=== PATIENT | female | born 1955 ===

== ENCOUNTER 2016-10-14 10:39 | Inpatient (IN) | payer MEDICARE, OTHER ==
[2016-10-14 10:40] VITALS: BMI 28.3
--- NOTE | 2016-10-14 11:28 | C.PDOC ---
History Of Present Illness 61 y/o F c PMHx HTN, HLD, DM, asthma p/w R leg ulcer x 1 month. Patient was keeping this ulcer a secret from her family but they discovered it and brought patient to the ER. The patient has had a BKA of the L leg already. She states the ulcer is without drainage but with some pain. Denies fever, dyspnea, vomiting, diarrhea. She also notes L hand swelling x 3 days, denies pain or injury. PMD Sandra Time Seen by Provider: 10/14/16 11:25 Chief Complaint (Nursing): Abnormal Skin Integrity Past Medical History Reviewed: Historical Data, Nursing Documentation, Vital Signs Vital Signs: Last Vital Signs Temp 98.4 F 10/14/16 10:44 Pulse 77 10/14/16 10:44 Resp 18 10/14/16 10:44 BP 145/80 10/14/16 10:44 Pulse Ox 96 10/14/16 13:17 - Medical History PMH: Asthma, Diabetes, Gall Bladder Disease, HTN, Hypercholesterolemia Surgical History: Cholecystectomy - [facility] Procedures EXTRACTION OF LEFT UPPER LEG SKIN, EXTERNAL APPROACH (12/04/15) EXTRACTION OF RIGHT UPPER LEG SKIN, EXTERNAL APPROACH (12/04/15) FLUOROSCOPY OF SUP VENA CAVA USING OT CONTRAST, GUIDANCE (12/04/15) INSERTION OF INFUSION DEV INTO SUP VENA CAVA, PERC APPROACH (12/04/15) REPLACE L UP LEG SKIN W NONAUT SUB, PART THICK, 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 Constitutional: Negative for: Fever Cardiovascular: Negative for: Chest Pain Physical Exam - Physical Exam Additional Physical Exam Comments: Constitutional: No acute distress. Head: Normocephalic. Atraumatic. Eyes: PERRL. ENT: Moist mucous membranes. Neck: Supple. Cardiovascular: Regular rate. Radial pulse 2+ bilaterally. Chest: No tenderness. Respiratory: Clear to auscultation bilaterally. GI: Soft. Nontender. Nondistended. Back: No CVA tenderness. Musculoskeletal: L hand swollen with FROM and no tenderness. Skin: R calf ulcer approximately 4cm in length without active drainage, + tenderness. L BKA. Neurologic: Alert, no focal deficit. ED Course And Treatment - Laboratory Results Result Diagrams: 10/14/16 12:09 10/14/16 12:09 ECG: Interpreted By Me, Viewed By Me ECG Rhythm: Sinus Rhythm Interpretation Of ECG: No acute ST/T wave changes Rate From EC (BPM) O2 Sat by Pulse Oximetry: 96 (ra) Pulse Ox Interpretation: Normal Medical Decision Making Medical Decision Making: Chest X-Ray, Read by Sabine Sprague MD: FINDINGS: Examination markedly limited by habitus and hypoinflation. LUNGS: Interstitial prominence may reflect infection or edema. Please note that chest x-ray has limited sensitivity for the detection of pulmonary masses. PLEURA: Probable small left pleural effusion. No definite pneumothorax . CARDIOVASCULAR: Enlargement of the cardiomediastinal silhouette. Atherosclerotic calcifications. OSSEOUS STRUCTURES: Degenerative changes. VISUALIZED UPPER ABDOMEN: Unremarkable. OTHER FINDINGS: None. IMPRESSION: Limited study. Interstitial prominence may reflect infection or edema. Probable small left pleural effusion. Enlargement of the cardiomediastinal silhouette. Dr. Flores accepts patient for admission, requires IV antibiotics. resident care supervisor notified. Disposition Discussed With : Abel Flores Jr. Doctor Will See Patient In The: Hospital - Disposition Disposition: HOSPITALIZED Disposition Time: 13:40 Condition: GUARDED - Clinical Impression Clinical Impression: Swelling of hand, Diabetic ulcer of lower leg
[2016-10-14 12:19] LABS: BASO # 0.1 K/uL (0.0-0.2); EOS # 1.1 K/uL (0.0-0.7); EOS % 9.2 % (0.0-4.0); HEMATOCRIT 32.7 % (34.0-47.0); LYMPH # 2.5 K/uL (1.0-4.3); MEAN CORPUSCULAR HEMOGLOBIN 27.9 pg (27.0-31.0); MEAN CORPUSCULAR HGB CONC 31.9 g/dL (33.0-37.0); MEAN PLATELET VOLUME 8.6 fL (7.2-11.7); MONO # 0.7 K/uL (0.0-0.8); MONO % 5.5 % (0.0-10.0); RED CELL DISTRIBUTION WIDTH 14.5 % (11.5-14.5); WHITE BLOOD COUNT 11.9 K/uL (4.8-10.8)
[2016-10-14 12:23] LABS: MEAN CELL VOLUME 87.5 fL (81.0-99.0)
[2016-10-14 12:42] LABS: POTASSIUM 5.6 mmol/L (3.6-5.2)
[2016-10-14 12:44] LABS: ALB/GLOB RATIO 0.9 (1.0-2.1); BILIRUBIN,TOTAL 0.2 mg/dL (0.2-1.3); TOTAL PROTEIN 6.6 g/dL (6.3-8.3)
[2016-10-14 12:45] LABS: CALCIUM 6.6 mg/dl (8.6-10.4)
--- NOTE | 2016-10-14 13:12 | RAD ---
HISTORY: R leg ulcer, L hand swelling COMPARISON: Chest x-ray performed 12/04/15 TECHNIQUE: Chest PA and lateral FINDINGS: Examination markedly limited by habitus and hypoinflation. LUNGS: Interstitial prominence may reflect infection or edema. Please note that chest x-ray has limited sensitivity for the detection of pulmonary masses. PLEURA: Probable small left pleural effusion. No definite pneumothorax . CARDIOVASCULAR: Enlargement of the cardiomediastinal silhouette. Atherosclerotic calcifications. OSSEOUS STRUCTURES: Degenerative changes. VISUALIZED UPPER ABDOMEN: Unremarkable. OTHER FINDINGS: None. IMPRESSION: Limited study. Interstitial prominence may reflect infection or edema. Probable small left pleural effusion. Enlargement of the cardiomediastinal silhouette.
[2016-10-14 14:27] LABS: URINE BILIRUBIN NEGATIVE (NEGATIVE); URINE BLOOD NEGATIVE (NEGATIVE); URINE COLOR Straw (YELLOW); URINE GLUCOSE (UA) 3+ mg/dL (Normal); URINE KETONE NEGATIVE (NEGATIVE); URINE LEUKOCYTE ESTERASE NEG Leu/uL (Negative); URINE PROTEIN 3+ mg/dL (NEGATIVE); URINE UROBILINOGEN NORMAL mg/dL (0.2-1.0); WBC URINE 4 /hpf (0-5)
[2016-10-14 14:33] LABS: RBC URINE 4 /hpf (0-3)
[2016-10-14] MEDS ORDERED: Sod Polystyrene Sulf 15 gm/60 ml Oral Susp PO ONE ×2 (15:55→17:15)
[2016-10-14] MEDS ORDERED: Albuterol-Ipratrop 3 mg / 0.5 (3 ml) UD INH PRN (16:00)
--- NOTE | 2016-10-14 16:30 | RAD ---
PROCEDURE: Radiographs of the right tibia and fibula. HISTORY: calf ulcer, tenderness COMPARISON: None available. TECHNIQUE: Frontal and lateral views obtained. FINDINGS: BONES: No fracture or destructive lesion. JOINT SPACES: Tibiotalar joint osteoarthrosis OTHER FINDINGS: Extensive atherosclerotic vascular calcification. Extensive circumferential subcutaneous edema and reticulated edema. Radiolucency over posterior mid calf level probably relating to the clinical history provided upper calf ulcer No periosteal reaction or osseous destruction to suggest any regional osteomyelitis IMPRESSION: Soft tissue changes consistent with extensive circumferential subcutaneous edema/ lymph edema/cellulitis. Posterior mid calf soft tissue lucency consistent with history of calf ulcer here. No radiographic evidence of regional osteomyelitis. Atherosclerotic vascular disease
--- NOTE | 2016-10-14 16:34 | RAD ---
PROCEDURE: Left Hand Radiographs. HISTORY: hand swelling COMPARISON: None. FINDINGS: BONES: Diffuse osteopenia. No fracture or dislocation. No periosteal reaction or cortical destruction appreciated JOINTS: Mild proximal the diffuse joint space narrowing consistent with mild degenerative changes arthrosis SOFT TISSUES: Extensive diffuse soft tissue swelling with subcutaneous edema and atherosclerotic vascular calcifications no gas within the soft tissues is seen. Atherosclerotic vascular calcification OTHER FINDINGS: None. IMPRESSION: Diffuse osteopenia. No fracture, periosteal reaction or osseous destruction to suggest osteomyelitis. Soft tissue changes consistent with diffuse subcutaneous edema/ lymphedema and/or cellulitis. Atherosclerotic vascular disease
[2016-10-14] MEDS: Piperacill/Tazo 2.25gm in Dex 50 ML IVPB SCH (16:55)
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
[2016-10-14 19:40] LABS: IRON 51 ug/dL (37-170)
[2016-10-14] MEDS ORDERED: Influenza Virus Vaccine 45 mcg/0.5 ml Syr IM ONE (22:00)
[2016-10-14] MEDS: (Novolin R) Insulin Human Regular 100 units/ml vial SC SCH (22:02)
[2016-10-15] MEDS: Piperacill/Tazo 2.25gm in Dex 50 ML IVPB SCH ×3 (00:41→16:00)
[2016-10-15 07:23] LABS: BASO # 0.1 K/uL (0.0-0.2); BASO % 0.8 % (0.0-2.0); EOS # 0.8 K/uL (0.0-0.7); EOS % 7.4 % (0.0-4.0); LYMPH # 1.2 K/uL (1.0-4.3); LYMPH % 11.4 % (20.0-40.0); MEAN CELL VOLUME 86.1 fL (81.0-99.0); MEAN CORPUSCULAR HEMOGLOBIN 27.9 pg (27.0-31.0); MEAN CORPUSCULAR HGB CONC 32.4 g/dL (33.0-37.0); MEAN PLATELET VOLUME 8.5 fL (7.2-11.7); MONO # 0.6 K/uL (0.0-0.8); MONO % 6.1 % (0.0-10.0); RED CELL DISTRIBUTION WIDTH 14.4 % (11.5-14.5); WHITE BLOOD COUNT 10.5 K/uL (4.8-10.8)
[2016-10-15 07:51] LABS: MAGNESIUM 2.1 mg/dL (1.6-2.3)
[2016-10-15] MEDS: (Novolin R) Insulin Human Regular 100 units/ml vial SC SCH ×4 (08:29→21:22)
[2016-10-15] MEDS: Enoxaparin 30 mg Syringe SC SCH (10:20)
--- NOTE | 2016-10-15 14:46 | CARD ---
APPROVED REPORT EKG Measurement Heart [id number] <Conclusion> Normal sinus rhythm Normal ECG
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
--- NOTE | 2016-10-15 15:35 | CON ---
DATE: 10/15/2016 HISTORY OF PRESENT ILLNESS: The patient is a 61-year-old woman with a past medical history of known chronic kidney disease, diabetes mellitus type 2, hypertension, dyslipidemia, asthma, status post CVA approximately 6 years ago and has known peripheral vascular disease. She had previous oste omyelitis of the left lower extremity and had a left AKA done. She presents to the Emergency Departm ent on 10/14 with a right leg wound which is draining for approximately 3 weeks was increasing pain. No fevers or chills. She did not take any recent antibiotics. She had nonhealing wound and she was admitted for this. She is known to have a creatinine of 6.4 and hyperkalemia and renal consult was r equested. PAST MEDICAL HISTORY: Known chronic kidney disease. Approximately 1 year ago, the creatinine was 4. 6. She has hypertension, diabetes mellitus type 2, dyslipidemia, asthma, peripheral vascular disease and status post CVA. PAST SURGICAL HISTORY: Cholecystectomy, a left AKA, debridement of abscess of bilateral medial thigh s. FAMILY HISTORY: Not known. SOCIAL HISTORY: Negative for smoking, alcohol abuse or illicit drug use. MEDICATIONS: Outpatient is unknown. In the hospital, she is taking Lexapro, amlodipine, Pepcid, IV Zosyn, Remeron, IV vancomycin which was just stopped. She was given Kayexalate. She was also on Cre stor, carvedilol, aspirin. PHYSICAL EXAMINATION: GENERAL: She is a well-developed woman in no acute distress. VITAL SIGNS: Blood pressure is elevated at 179/79, temperature 98.1, pulse ox 96% on room air and pu lse is 83. HEENT: She is anicteric. Mouth was clear. NECK: No JVD. CHEST: Lung marion showed wheezing and rhonchi, more on the left side. HEART: Regular rhythm, no murmur. ABDOMEN: Soft, benign. No mass or organomegaly. EXTREMITIES: She had no peripheral edema. Right leg wound was bandaged. She had a left AKA. NEUROLOGIC: She had left hemiparesis. LABORATORY DATA: Hemoglobin 10.4, white count, 10.5 . BUN is 46, creatinine is 6.4, potassium is 5. 6, CO2 is 16. Albumin of 3.2. Urine shows 3+ proteinuria. Renal ultrasound from ____/2016 showed b ilateral echogenic kidneys. IMPRESSION: The patient has chronic kidney disease stage V, diabetic nephropathy with proteinuria. She is status post cerebrovascular accident. She has hypertension which is moderately elevated and s he has peripheral vascular disease, status post left above-knee amputation and has a nonhealing right lower extremity wound. PLAN: Will be renal workup. Repeat renal ultrasound. Check urinalysis and serial chemistries: Dena ck urine protein excretion rate. We will treat the hyperkalemia and the metabolic acidosis. I would give her some IV Lasix as she probably has moderate fluid overload as chest x-ray is not clear. If she does not improve, she will likely need renal replacement therapy. We will follow up on this. Carlos Salinas MD cc: [id number] TT: 10/15/2016 15:35:28 Confirmation # [id number] Dictation # [id number] tn
--- NOTE | 2016-10-15 15:58 | US ---
PROCEDURE: Ultrasound of the Kidneys HISTORY: CKD EVAL COMPARISON: None available. TECHNIQUE: Sonogram of the kidneys. FINDINGS: RIGHT KIDNEY: Measures: 11.5 cm. Normal in size and contour. There is mild diffuse increased echogenicity. No stone, solid mass lesion or hydronephrosis visualized. There is a 2.1 x 1.4 x 1.3 cm simple cyst in the upper pole. LEFT KIDNEY: Measures: 10.1 cm. Normal in size and contour. There is mild diffuse increased echogenicity. No stone, solid mass lesion or hydronephrosis visualized. OTHER FINDINGS: None. IMPRESSION: Medical renal disease. No evidence of hydronephrosis or nephrolithiasis.
--- NOTE | 2016-10-15 19:49 | CP.PCM.PN ---
<Eduardo Meier - Last Filed: 10/15/16 19:46> Subjective - Date & Time of Evaluation Date of Evaluation: 10/15/16 Time of Evaluation: 11:15 - Subjective Subjective: Pt seen and examined. Pr resting comfortably. Pt reports that her right lateral leg pain has improved. Pt denies any fever, chills, chest pain, shortness of breath, nausea, and vomiting. Objective - Vital Signs/Intake and Output Vital Signs (last 24 hours): Temp Pulse Resp BP Pulse Ox 98.1 F 83 20 170/80 H 96 10/15/16 07:00 10/15/16 16:08 10/15/16 07:00 10/15/16 15:30 10/15/16 07:00 - Medications Medications: Current Medications Albuterol/Ipratropium (Duoneb 3 Mg/0.5 Mg (3 Ml) Ud) 3 ml INH RQ6 PRN PRN Reason: Shortness of Breath Amlodipine Besylate (Norvasc) 10 mg PO DAILY [facility] Aspirin (Aspirin Chewable) 81 mg PO DAILY [facility] Last Admin: 10/15/16 10:18 Dose: 81 mg Carvedilol (Coreg) 12.5 mg PO BID [facility] Last Admin: 10/15/16 10:19 Dose: 12.5 mg Enoxaparin Sodium (Lovenox) 30 mg SC DAILY [facility] Last Admin: 10/15/16 10:20 Dose: 30 mg Escitalopram Oxalate (Lexapro) 10 mg PO DAILY [facility] Last Admin: 10/15/16 10:19 Dose: 10 mg Famotidine (Pepcid) 20 mg PO DAILY [facility] Last Admin: 10/15/16 10:19 Dose: 20 mg Furosemide (Lasix) 40 mg IVP DAILY [facility] Last Admin: 10/15/16 15:30 Dose: 40 mg Piperacillin Sod/Tazobactam Sod (Zosyn 2.25 Gm Iv Premix) 50 mls @ 100 mls/hr IVPB Q8H [facility] Last Admin: 10/15/16 08:30 Dose: 100 mls/hr Insulin Human Regular (Novolin R) 0 unit SC ACHS [facility] PRN Reason: Protocol Last Admin: 10/15/16 12:30 Dose: Not Given Mirtazapine (Remeron) 7.5 mg PO HS [facility] Rosuvastatin Calcium (Crestor) 5 mg PO HS [facility] Last Admin: 10/14/16 21:57 Dose: 5 mg - Labs Labs: 10/15/16 07:15 PT 11.4 SECONDS (9.7-12.2) 10/14/16 13:15 INR 1.0 10/14/16 13:15 APTT 37 SECONDS (21-34) H 10/14/16 13:15 - Constitutional Appears: No Acute Distress - Head Exam Head Exam: ATRAUMATIC, NORMOCEPHALIC - Eye Exam Eye Exam: EOMI, PERRL - ENT Exam ENT Exam: Mucous Membranes Moist. absent: Mucous Membranes Dry - Neck Exam Neck Exam: Full ROM. absent: Lymphadenopathy - Respiratory Exam Respiratory Exam: Clear to Ausculation Bilateral. absent: Rales, Rhonchi, Wheezes - Cardiovascular Exam Cardiovascular Exam: +S1, +S2. absent: Gallop, Rubs - GI/Abdominal Exam GI & Abdominal Exam: Soft. absent: Guarding, Tenderness - Extremities Exam Additional comments: Left leg AKA, right lateral leg venous ulcer - Neurological Exam Neurological Exam: Alert, Awake, Oriented x3 - Psychiatric Exam Psychiatric exam: Normal Affect, Normal Mood - Skin Skin Exam: Warm Assessment and Plan - Assessment and Plan (Free Text) Assessment: Right Lateral Lower Extremity Ulcer Leukocytosis resolved Afebrile, nontachycardic Blood Cx x2 sent, follow-up Patient given stat dose of Vancomycin in ED Started on renal dose Zosyn 2.25 gm IVPB q8h Consult for wound care Tibia/Fibula X-RAY: soft tissue changes consistent with extensive circumferential subcutaneous edema/lymphedema/cellulitis. Posterior mid calf soft lucency consistent with history of calf ulcer. Atherosclerotic vascular disease. (see full report) PT/OT HTN: BP - 179/79 Norvasc 10 mg po qd Coreg 12.5mg po bid Lasix 40 mg IV qd ESRD BUN/CR: 46/6.4 Est GFR 7 Creatinine Clearance of 10 On previous admission, patient had creatinine of 3.5 Consulted nephrology, Dr. Salinas. Help appreciated. Iron studies pending Hep penal pending Diabetes Mellitus Blood glucose of 171 f/u hemoglobin a1c Urine: 3+ glucose RISS Accuchecks History of CVA Crestor 5 mg po HS ASA 81 mg po daily PT/OT Uncontrolled Asthma Duoneb RQ6 PRN for shortness of breath CXR: interstitial prominence, May reflect infection or edema. Probable small pleural effusion. Monitor Hyperlipidemia Crestor 5 mg po HS Ordered Lipid Panel Anemia hemoglobin 10.5 Iron studies Depression: Remeron 7.5 mg po hs Lexapro 10 mg po qd Prophylaxis: Lovenox 30 mg SC daily Pepcid 20 mg po daily SCD contraindicated due to right lower extremity ulcer and left AKA <Abel Flores Jr. - Last Filed: 10/17/16 16:54> Objective - Vital Signs/Intake and Output Vital Signs (last 24 hours): Temp Pulse Resp BP Pulse Ox 98.6 F 88 18 150/72 95 10/17/16 07:35 10/17/16 07:35 10/17/16 07:35 10/17/16 09:48 10/17/16 07:35 Intake and Output: 10/17/16 10/17/16 06:59 18:59 Intake Total 470 600 Output Total 1 2 Balance 469 598 - Medications Medications: Current Medications Albuterol/Ipratropium (Duoneb 3 Mg/0.5 Mg (3 Ml) Ud) 3 ml INH RQ6 PRN PRN Reason: Shortness of Breath Amlodipine Besylate (Norvasc) 10 mg PO DAILY [facility] Last Admin: 10/17/16 09:48 Dose: 10 mg Aspirin (Aspirin Chewable) 81 mg PO DAILY [facility] Last Admin: 10/17/16 15:00 Dose: 81 mg Calcium Acetate (Phoslo) 667 mg PO TIDCC [facility] Last Admin: 10/17/16 12:37 Dose: Not Given Carvedilol (Coreg) 12.5 mg PO BID [facility] Last Admin: 10/17/16 09:48 Dose: 12.5 mg Escitalopram Oxalate (Lexapro) 10 mg PO DAILY [facility] Last Admin: 10/17/16 09:49 Dose: 10 mg Famotidine (Pepcid) 20 mg PO DAILY [facility] Last Admin: 10/17/16 09:48 Dose: 20 mg Ferric Sodium Gluconate Complex (Ferrlecit) 125 mg IVPB DAILY [facility] Stop: 10/24/16 10:16 Last Admin: 10/17/16 09:49 Dose: 125 mg Furosemide (Lasix) 40 mg PO DAILY [facility] Heparin Sodium (Porcine) (Heparin) 5,000 units SC Q8 [facility] Last Admin: 10/17/16 13:34 Dose: 5,000 units Piperacillin Sod/Tazobactam Sod (Zosyn 2.25 Gm Iv Premix) 50 mls @ 100 mls/hr IVPB Q8H [facility] Last Admin: 10/17/16 08:13 Dose: 100 mls/hr Insulin Human Regular (Novolin R) 0 unit SC ACHS [facility] PRN Reason: Protocol Last Admin: 10/17/16 12:30 Dose: 4 unit Mirtazapine (Remeron) 7.5 mg PO HS [facility] Last Admin: 10/16/16 21:11 Dose: 7.5 mg Rosuvastatin Calcium (Crestor) 5 mg PO HS [facility] Last Admin: 10/16/16 21:10 Dose: 5 mg - Labs Labs: 10/17/16 07:00 10/17/16 07:00 PT 11.4 SECONDS (9.7-12.2) 10/14/16 13:15 INR 1.0 10/14/16 13:15 APTT 37 SECONDS (21-34) H 10/14/16 13:15 Attending/Attestation - Attestation I have personally seen and examined this patient.: Yes I have fully participated in the care of the patient.: Yes I have reviewed all pertinent clinical information, including history, physical exam and plan: Yes Notes (Text): 10/17/16 16:54 Patient seen and examined. Review resident note and agree with plan of care and findings
[2016-10-16] MEDS: Piperacill/Tazo 2.25gm in Dex 50 ML IVPB SCH ×3 (00:15→16:00)
[2016-10-16 08:15] LABS: BASO # 0.1 K/uL (0.0-0.2); BASO % 0.7 % (0.0-2.0); EOS # 0.9 K/uL (0.0-0.7); EOS % 8.4 % (0.0-4.0); HEMATOCRIT 30.7 % (34.0-47.0); LYMPH # 1.7 K/uL (1.0-4.3); LYMPH % 16.1 % (20.0-40.0); MEAN CELL VOLUME 85.5 fL (81.0-99.0); MEAN CORPUSCULAR HEMOGLOBIN 28.2 pg (27.0-31.0); MEAN CORPUSCULAR HGB CONC 32.9 g/dL (33.0-37.0); MONO # 0.6 K/uL (0.0-0.8); RED CELL DISTRIBUTION WIDTH 14.3 % (11.5-14.5); WHITE BLOOD COUNT 10.7 K/uL (4.8-10.8)
[2016-10-16 08:23] LABS: CHLORIDE 108 mmol/L (98-107)
[2016-10-16 08:24] LABS: POTASSIUM 3.8 mmol/L (3.6-5.2); SODIUM 141 mmol/L (132-148)
[2016-10-16 08:26] LABS: ALKALINE PHOSPHATASE 104 U/L (38-126); ALT/SGPT 15 U/L (9-52); AST/SGOT 15 U/L (14-36); BILIRUBIN,TOTAL < 0.1 mg/dL (0.2-1.3); BLOOD UREA NITROGEN 43 mg/dL (7-17); CARBON DIOXIDE 18 mmol/L (22-30); GFR AFRICAN-AMERICAN 7; GLUCOSE,RANDOM 112 mg/dL (65-105); TOTAL PROTEIN 6.2 g/dL (6.3-8.3)
[2016-10-16 08:27] LABS: CALCIUM 6.5 mg/dl (8.6-10.4); MAGNESIUM 1.9 mg/dL (1.6-2.3); PHOSPHOROUS 8.1 mg/dL (2.5-4.5)
[2016-10-16 08:32] LABS: ALB/GLOB RATIO 0.9 (1.0-2.1)
[2016-10-16] MEDS: Enoxaparin 30 mg Syringe SC SCH (09:00)
[2016-10-16] MEDS: (Novolin R) Insulin Human Regular 100 units/ml vial SC SCH ×4 (09:02→21:14)
[2016-10-16] MEDS ORDERED: Pneumococcal 23-Valent Vaccine IM ONE (10:00)
--- NOTE | 2016-10-16 10:07 | CP.PCM.PN ---
Subjective - Date & Time of Evaluation Date of Evaluation: 10/16/16 Time of Evaluation: 10:04 - Subjective Subjective: Creat increased to 7.0 BP still uncontrolled Discussed need for dialysis with patient and son; they understand and agree for dialysis. Risks explained as well.Patient denies any ndew sxs. Objective - Vital Signs/Intake and Output Vital Signs (last 24 hours): Temp Pulse Resp BP Pulse Ox 97.4 F L 80 20 173/80 H 95 10/16/16 07:43 10/16/16 07:43 10/16/16 07:43 10/16/16 07:43 10/16/16 07:43 Intake and Output: 10/16/16 10/16/16 06:59 18:59 Intake Total 520 Output Total 100 Balance 420 - Medications Medications: Current Medications Albuterol/Ipratropium (Duoneb 3 Mg/0.5 Mg (3 Ml) Ud) 3 ml INH RQ6 PRN PRN Reason: Shortness of Breath Amlodipine Besylate (Norvasc) 10 mg PO DAILY [facility] Aspirin (Aspirin Chewable) 81 mg PO DAILY [facility] Last Admin: 10/15/16 10:18 Dose: 81 mg Carvedilol (Coreg) 12.5 mg PO BID [facility] Last Admin: 10/15/16 18:00 Dose: 12.5 mg Enoxaparin Sodium (Lovenox) 30 mg SC DAILY [facility] Last Admin: 10/15/16 10:20 Dose: 30 mg Escitalopram Oxalate (Lexapro) 10 mg PO DAILY [facility] Last Admin: 10/15/16 10:19 Dose: 10 mg Famotidine (Pepcid) 20 mg PO DAILY [facility] Last Admin: 10/15/16 10:19 Dose: 20 mg Furosemide (Lasix) 40 mg IVP DAILY [facility] Last Admin: 10/15/16 15:30 Dose: 40 mg Piperacillin Sod/Tazobactam Sod (Zosyn 2.25 Gm Iv Premix) 50 mls @ 100 mls/hr IVPB Q8H [facility] Last Admin: 10/16/16 07:20 Dose: 100 mls/hr Insulin Human Regular (Novolin R) 0 unit SC ACHS [facility] PRN Reason: Protocol Last Admin: 10/16/16 09:02 Dose: Not Given Mirtazapine (Remeron) 7.5 mg PO HS [facility] Last Admin: 10/15/16 22:00 Dose: 7.5 mg Rosuvastatin Calcium (Crestor) 5 mg PO HS [facility] Last Admin: 10/15/16 21:21 Dose: 5 mg - Labs Labs: 10/16/16 08:02 10/16/16 08:02 PT 11.4 SECONDS (9.7-12.2) 10/14/16 13:15 INR 1.0 10/14/16 13:15 APTT 37 SECONDS (21-34) H 10/14/16 13:15 - Constitutional Appears: No Acute Distress, Chronically Ill - Head Exam Head Exam: ATRAUMATIC, NORMAL INSPECTION - Eye Exam Eye Exam: EOMI, Normal appearance - Respiratory Exam Respiratory Exam: Clear to Ausculation Bilateral, NORMAL BREATHING PATTERN - Cardiovascular Exam Cardiovascular Exam: REGULAR RHYTHM, +S1 - GI/Abdominal Exam GI & Abdominal Exam: Soft. absent: Tenderness - Extremities Exam Extremities Exam: Tenderness. absent: Pedal Edema - Neurological Exam Neurological Exam: Alert, Motor Sensory Deficit - Skin Skin Exam: Dry, Warm Assessment and Plan (1) Diabetic ulcer of lower leg Status: Acute (2) Acute renal failure (ARF) Status: Acute (3) HTN (hypertension) Status: Chronic (4) Type 2 diabetes mellitus with diabetic nephropathy Status: Acute (5) CVA (cerebrovascular accident) Status: Acute - Assessment and Plan (Free Text) Plan: Will arrange for dialysis - will need catheter- will request this To write HD orders; schedule treatments
[2016-10-16] MEDS ORDERED: HEPARIN-NS 5,000 UNITS/500 ML 500 ML IV ONE (11:32)
--- NOTE | 2016-10-16 12:55 | PCM.SURG1 ---
Surgeon's Initial Post Op Note - Surgeon's Notes Surgeon: KARSTEN Intelligence Intern: 0 Type of Anesthesia: Local Anesthesia Administered By: Pre-Operative Diagnosis: RENAL FAILURE Operative Findings: Rij hd CATH Post-Operative Diagnosis: SAME Operation Performed: dIALYSIS CATHETER VIA RIGHT JUGULAR WITH US GUIDANCE Specimen/Specimens Removed: 0 Estimated Blood Loss: EBL {In ML}: 5 Blood Products Given: N/A Drains Used: No Drains Post-Op Condition: Good Date of Surgery/Procedure: 10/16/16 Time of Surgery/Procedure: 12:55
--- NOTE | 2016-10-16 13:03 | OP ---
PROCEDURE DATE: 10/16/2016 PREOPERATIVE DIAGNOSIS: Renal failure. POSTOPERATIVE DIAGNOSIS: Renal failure. PROCEDURE CARRIED OUT: Placement of dialysis catheter, right jugular vein with C-arm fluoroscopy, ul trasound-guided puncture and micropuncture technique. SURGEON: Teddy Martinez MD. REVIEW RN: None. ANESTHESIOLOGIST: Myself, 1% Xylocaine. INDICATIONS: A 61-year-old woman who now requires urgent dialysis. OPERATIVE FINDINGS: We inserted a temporary dialysis catheter because the patient was and requ ired urgent dialysis. Catheter was inserted uneventfully via the jugular vein. PROCEDURE: The patient was given local anesthesia. Using ultrasound guidance and micropuncture tech nique, the right jugular vein was cannulated. Under fluoroscopic control, the guidewire was advanced centrally. A sheath dilator was passed over this and the catheter was positioned with the tip in th e superior vena cava right atrial junction, was flushed with heparinized saline with good return. Th e catheter was then removed, secured to the skin and flushed with good return. No operative complica tions or problems. Ultrasound of the neck shows vein was approximately 14 mm in diameter with normal compressibility and no evidence of intraluminal thrombosis. Teddy Martinez Jr., MD cc: 56 TT: 10/16/2016 13:03:14 herman
[2016-10-16] MEDS: Ferric Sodium Gluconat Complex 62.5 mg/5 ml Vial IVPB SCH (13:24)
--- NOTE | 2016-10-16 14:37 | CP.PCM.PN ---
<Eduardo Meier - Last Filed: 10/16/16 14:37> Subjective - Date & Time of Evaluation Date of Evaluation: 10/16/16 Time of Evaluation: 07:18 - Subjective Subjective: Pt seen and examined. Pt reports that she is feeling better today. Pt denies any pain in her right leg ulcer. Pt denies fever, chills, chest pain, shortness of breath, nausea, and vomiting. Objective - Vital Signs/Intake and Output Vital Signs (last 24 hours): Temp Pulse Resp BP Pulse Ox 98 F 78 18 189/90 H 100 10/16/16 12:14 10/16/16 12:14 10/16/16 12:14 10/16/16 13:19 10/16/16 12:14 Intake and Output: 10/16/16 10/16/16 06:59 18:59 Intake Total 520 Output Total 100 Balance 420 - Medications Medications: Current Medications Albuterol/Ipratropium (Duoneb 3 Mg/0.5 Mg (3 Ml) Ud) 3 ml INH RQ6 PRN PRN Reason: Shortness of Breath Amlodipine Besylate (Norvasc) 10 mg PO DAILY [facility] Last Admin: 10/16/16 13:19 Dose: 10 mg Aspirin (Aspirin Chewable) 81 mg PO DAILY [facility] Last Admin: 10/16/16 13:18 Dose: 81 mg Calcium Acetate (Phoslo) 667 mg PO TIDCC [facility] Last Admin: 10/16/16 12:06 Dose: Not Given Carvedilol (Coreg) 12.5 mg PO BID [facility] Last Admin: 10/16/16 13:19 Dose: 12.5 mg Escitalopram Oxalate (Lexapro) 10 mg PO DAILY [facility] Last Admin: 10/16/16 13:19 Dose: 10 mg Famotidine (Pepcid) 20 mg PO DAILY [facility] Last Admin: 10/16/16 13:19 Dose: 20 mg Ferric Sodium Gluconate Complex (Ferrlecit) 125 mg IVPB DAILY [facility] Stop: 10/24/16 10:16 Last Admin: 10/16/16 13:24 Dose: 125 mg Furosemide (Lasix) 40 mg IVP DAILY [facility] Last Admin: 10/16/16 13:19 Dose: 40 mg Piperacillin Sod/Tazobactam Sod (Zosyn 2.25 Gm Iv Premix) 50 mls @ 100 mls/hr IVPB Q8H [facility] Last Admin: 10/16/16 07:20 Dose: 100 mls/hr Insulin Human Regular (Novolin R) 0 unit SC ACHS [facility] PRN Reason: Protocol Last Admin: 10/16/16 12:05 Dose: Not Given Mirtazapine (Remeron) 7.5 mg PO [facility] Last Admin: 10/15/16 22:00 Dose: 7.5 mg Rosuvastatin Calcium (Crestor) 5 mg PO [facility] Last Admin: 10/15/16 21:21 Dose: 5 mg - Labs Labs: 10/16/16 08:02 10/16/16 08:02 PT 11.4 SECONDS (9.7-12.2) 10/14/16 13:15 INR 1.0 10/14/16 13:15 APTT 37 SECONDS (21-34) H 10/14/16 13:15 - Constitutional Appears: No Acute Distress - Head Exam Head Exam: ATRAUMATIC, NORMOCEPHALIC - Eye Exam Eye Exam: EOMI, PERRL - ENT Exam ENT Exam: Mucous Membranes Moist. absent: Mucous Membranes Dry - Neck Exam Neck Exam: Full ROM. absent: Lymphadenopathy - Respiratory Exam Respiratory Exam: Clear to Ausculation Bilateral. absent: Rales, Rhonchi, Wheezes - Cardiovascular Exam Cardiovascular Exam: +S1, +S2. absent: Gallop, Rubs - GI/Abdominal Exam GI & Abdominal Exam: Soft. absent: Tenderness - Extremities Exam Additional comments: Left Extremity AKA, Right lateral lower leg venous ulcer - Neurological Exam Neurological Exam: Alert, Awake, Oriented x3 - Psychiatric Exam Psychiatric exam: Normal Affect, Normal Mood - Skin Skin Exam: Normal Color, Warm Assessment and Plan - Assessment and Plan (Free Text) Assessment: Right Lateral Lower Extremity Ulcer Leukocytosis resolved Afebrile, nontachycardic Blood cultures - no growth after 24 hours Zosyn 2.25 gm IVPB q8h Consult for wound care Tibia/Fibula X-RAY: soft tissue changes consistent with extensive circumferential subcutaneous edema/lymphedema/cellulitis. Posterior mid calf soft lucency consistent with history of calf ulcer. Atherosclerotic vascular disease. (see full report) PT/OT Lower Extremity arterial doppler pending ESRD BUN/CR: 43/7.0 today Est GFR 6 Renal ultrasound - medical renal disease, no evidence of nephrolithiasis or hydronephrosis (please see full report) Consulted nephrology, Dr. Salinas. Help appreciated. As per nephrology, pt needs emergent dialysis General Surgery, Dr. Martinez, consulted for stat dialysis catheter placement Pt made NPO and lovenox held Pt day 0 s/p dialysis catheter placement Pt taken for emergent dialysis Phoslo 667 mg po tidcc HTN: BP - 189/90 Pt taken to OR for dialysis cath placement and emergent dialysis General surgery, Dr. Martinez, consulted for catheter placement Norvasc 10 mg po qd Coreg 12.5mg po bid Lasix 40 mg IV qd Diabetes Mellitus Blood glucose of 171 f/u hemoglobin a1c Urine: 3+ glucose RISS Accuchecks History of CVA Crestor 5 mg po HS ASA 81 mg po daily PT/OT Uncontrolled Asthma Duoneb RQ6 PRN for shortness of breath CXR: interstitial prominence, May reflect infection or edema. Probable small pleural effusion. Monitor Hyperlipidemia Crestor 5 mg po HS LDL 126 Anemia hemoglobin 10.1 Iron 51 Depression: Remeron 7.5 mg po hs Lexapro 10 mg po qd Prophylaxis: Lovenox 30 mg SC daily Pepcid 20 mg po daily SCD contraindicated due to right lower extremity ulcer and left AKA <Abel Flores Jr. - Last Filed: 10/17/16 16:55> Objective - Vital Signs/Intake and Output Vital Signs (last 24 hours): Temp Pulse Resp BP Pulse Ox 98.6 F 88 18 150/72 95 10/17/16 07:35 10/17/16 07:35 10/17/16 07:35 10/17/16 09:48 10/17/16 07:35 Intake and Output: 10/17/16 10/17/16 06:59 18:59 Intake Total 470 600 Output Total 1 2 Balance 469 598 - Medications Medications: Current Medications Albuterol/Ipratropium (Duoneb 3 Mg/0.5 Mg (3 Ml) Ud) 3 ml INH RQ6 PRN PRN Reason: Shortness of Breath Amlodipine Besylate (Norvasc) 10 mg PO DAILY [facility] Last Admin: 10/17/16 09:48 Dose: 10 mg Aspirin (Aspirin Chewable) 81 mg PO DAILY [facility] Last Admin: 10/17/16 15:00 Dose: 81 mg Calcium Acetate (Phoslo) 667 mg PO TIDCC [facility] Last Admin: 10/17/16 12:37 Dose: Not Given Carvedilol (Coreg) 12.5 mg PO BID [facility] Last Admin: 10/17/16 09:48 Dose: 12.5 mg Escitalopram Oxalate (Lexapro) 10 mg PO DAILY [facility] Last Admin: 10/17/16 09:49 Dose: 10 mg Famotidine (Pepcid) 20 mg PO DAILY [facility] Last Admin: 10/17/16 09:48 Dose: 20 mg Ferric Sodium Gluconate Complex (Ferrlecit) 125 mg IVPB DAILY [facility] Stop: 10/24/16 10:16 Last Admin: 10/17/16 09:49 Dose: 125 mg Furosemide (Lasix) 40 mg PO DAILY [facility] Heparin Sodium (Porcine) (Heparin) 5,000 units SC Q8 [facility] Last Admin: 10/17/16 13:34 Dose: 5,000 units Piperacillin Sod/Tazobactam Sod (Zosyn 2.25 Gm Iv Premix) 50 mls @ 100 mls/hr IVPB Q8H [facility] Last Admin: 10/17/16 08:13 Dose: 100 mls/hr Insulin Human Regular (Novolin R) 0 unit SC ACHS [facility] PRN Reason: Protocol Last Admin: 10/17/16 12:30 Dose: 4 unit Mirtazapine (Remeron) 7.5 mg PO HS [facility] Last Admin: 10/16/16 21:11 Dose: 7.5 mg Rosuvastatin Calcium (Crestor) 5 mg PO HS [facility] Last Admin: 10/16/16 21:10 Dose: 5 mg - Labs Labs: 10/17/16 07:00 10/17/16 07:00 PT 11.4 SECONDS (9.7-12.2) 10/14/16 13:15 INR 1.0 10/14/16 13:15 APTT 37 SECONDS (21-34) H 10/14/16 13:15 Attending/Attestation - Attestation I have personally seen and examined this patient.: Yes I have fully participated in the care of the patient.: Yes I have reviewed all pertinent clinical information, including history, physical exam and plan: Yes Notes (Text): 10/17/16 16:55 Patient seen and examined. Reviewed resident note and agree with plan of care and findings
--- NOTE | 2016-10-16 15:32 | RAD ---
HISTORY: DIALYSIS CATHETER COMPARISON: Chest x-ray performed 10/14/16 TECHNIQUE: Chest, one view. FINDINGS: Examination limited by habitus. Interval placement of a right-sided central venous catheter which extends to the expected location of the proximal right atrium ; distal tip somewhat obscured by soft tissue attenuation. LUNGS: Mild pulmonary venous congestion. No focal consolidation. Please note that chest x-ray has limited sensitivity for the detection of pulmonary masses. PLEURA: No significant pleural effusion identified. No definite pneumothorax . CARDIOVASCULAR: Borderline cardiomegaly. Atherosclerotic calcifications of the aorta. OSSEOUS STRUCTURES: Degenerative changes. VISUALIZED UPPER ABDOMEN: Unremarkable. OTHER FINDINGS: None. IMPRESSION: Interval placement of right-sided central venous catheter which extends to the expected location of the proximal right atrium ; distal tip somewhat obscured by soft tissue attenuation. No evidence of pneumothorax. Mild pulmonary venous congestion.
[2016-10-17] MEDS: Piperacill/Tazo 2.25gm in Dex 50 ML IVPB SCH ×3 (00:45→17:59)
[2016-10-17 07:28] LABS: BASO # 0.1 K/uL (0.0-0.2); LYMPH % 17.3 % (20.0-40.0); RED CELL DISTRIBUTION WIDTH 14.1 % (11.5-14.5)
[2016-10-17 07:36] LABS: BASO % 0.8 % (0.0-2.0); EOS % 8.5 % (0.0-4.0); HEMATOCRIT 33.4 % (34.0-47.0); MEAN CELL VOLUME 85.8 fL (81.0-99.0); MEAN CORPUSCULAR HEMOGLOBIN 27.4 pg (27.0-31.0); MEAN CORPUSCULAR HGB CONC 31.9 g/dL (33.0-37.0); MEAN PLATELET VOLUME 9.3 fL (7.2-11.7); MONO # 0.7 K/uL (0.0-0.8); MONO % 6.3 % (0.0-10.0); NRBC % 0.2 % (0.0-2.0); WHITE BLOOD COUNT 11.7 K/uL (4.8-10.8)
[2016-10-17] MEDS: (Novolin R) Insulin Human Regular 100 units/ml vial SC SCH ×4 (07:52→22:29)
[2016-10-17 07:59] LABS: POTASSIUM 3.4 mmol/L (3.6-5.2)
[2016-10-17 08:01] LABS: BILIRUBIN,TOTAL 0.3 mg/dL (0.2-1.3)
[2016-10-17 08:02] LABS: ALB/GLOB RATIO 0.9 (1.0-2.1); CALCIUM 6.9 mg/dl (8.6-10.4); TOTAL PROTEIN 6.4 g/dL (6.3-8.3)
[2016-10-17 08:03] LABS: MAGNESIUM 1.9 mg/dL (1.6-2.3)
[2016-10-17] MEDS: Ferric Sodium Gluconat Complex 62.5 mg/5 ml Vial IVPB SCH (09:49)
--- NOTE | 2016-10-17 10:40 | CP.PCM.PN ---
Subjective - Date & Time of Evaluation Date of Evaluation: 10/17/16 Time of Evaluation: 10:38 - Subjective Subjective: Surgery: Dr. Martinez Patient doing well today. patient received HD w/p complications yesterday through permacath. No complaints. Objective - Vital Signs/Intake and Output Vital Signs (last 24 hours): Temp Pulse Resp BP Pulse Ox 98.6 F 88 18 150/72 95 10/17/16 07:35 10/17/16 07:35 10/17/16 07:35 10/17/16 09:48 10/17/16 07:35 Intake and Output: 10/17/16 10/17/16 06:59 18:59 Intake Total 470 Output Total 1 Balance 469 - Medications Medications: Current Medications Albuterol/Ipratropium (Duoneb 3 Mg/0.5 Mg (3 Ml) Ud) 3 ml INH RQ6 PRN PRN Reason: Shortness of Breath Amlodipine Besylate (Norvasc) 10 mg PO DAILY [facility] Last Admin: 10/17/16 09:48 Dose: 10 mg Aspirin (Aspirin Chewable) 81 mg PO DAILY [facility] Last Admin: 10/16/16 13:18 Dose: 81 mg Calcium Acetate (Phoslo) 667 mg PO TIDCC [facility] Last Admin: 10/17/16 08:13 Dose: 667 mg Carvedilol (Coreg) 12.5 mg PO BID [facility] Last Admin: 10/17/16 09:48 Dose: 12.5 mg Escitalopram Oxalate (Lexapro) 10 mg PO DAILY [facility] Last Admin: 10/17/16 09:49 Dose: 10 mg Famotidine (Pepcid) 20 mg PO DAILY [facility] Last Admin: 10/17/16 09:48 Dose: 20 mg Ferric Sodium Gluconate Complex (Ferrlecit) 125 mg IVPB DAILY [facility] Stop: 10/24/16 10:16 Last Admin: 10/17/16 09:49 Dose: 125 mg Furosemide (Lasix) 40 mg IVP DAILY [facility] Last Admin: 10/17/16 09:48 Dose: 40 mg Heparin Sodium (Porcine) (Heparin) 5,000 units SC Q8 [facility] Last Admin: 10/17/16 06:07 Dose: 5,000 units Piperacillin Sod/Tazobactam Sod (Zosyn 2.25 Gm Iv Premix) 50 mls @ 100 mls/hr IVPB Q8H [facility] Last Admin: 10/17/16 08:13 Dose: 100 mls/hr Insulin Human Regular (Novolin R) 0 unit SC ACHS [facility] PRN Reason: Protocol Last Admin: 10/17/16 07:52 Dose: Not Given Mirtazapine (Remeron) 7.5 mg PO HS [facility] Last Admin: 10/16/16 21:11 Dose: 7.5 mg Rosuvastatin Calcium (Crestor) 5 mg PO HS [facility] Last Admin: 10/16/16 21:10 Dose: 5 mg - Labs Labs: 10/17/16 07:00 10/17/16 07:00 PT 11.4 SECONDS (9.7-12.2) 10/14/16 13:15 INR 1.0 10/14/16 13:15 APTT 37 SECONDS (21-34) H 10/14/16 13:15 - Constitutional Appears: Non-toxic, No Acute Distress - Head Exam Head Exam: ATRAUMATIC, NORMOCEPHALIC - Eye Exam Eye Exam: EOMI, Normal appearance - ENT Exam ENT Exam: Mucous Membranes Moist - Neck Exam Additional comments: right IJ permacath - Respiratory Exam Respiratory Exam: NORMAL BREATHING PATTERN. absent: Respiratory Distress - Cardiovascular Exam Cardiovascular Exam: REGULAR RHYTHM. absent: Tachycardia Assessment and Plan - Assessment and Plan (Free Text) Assessment: 61 y/o female s/p right IJ permacath insertion POD1 Plan: -left arm precautions -f/u vein mapping -for L AVF Thursday -medical management per primary -pre-op Thursday AKWhite PGY1
--- NOTE | 2016-10-17 12:21 | VASCLAB ---
PROCEDURE: Upper Extremity Venous Duplex Exam HISTORY: PRE OP AVF ESRD PRIORS: None. TECHNIQUE: Bilateral upper extremity, internal jugular, subclavian, axillary, brachial, ulnar, radial, basilic and upper cephalic veins were evaluated. Flow was assessed with color Doppler, compressibility, assessment of phasic flow and augmentation response. Report prepared by Danie Magaña, RVT FINDINGS: RIGHT: 1. Internal Jugular Vein: Compressibility - Fully compressible: Thrombus - None : Flow - Phasic 2. Subclavian Vein:Compressibility - Fully compressible: Thrombus - None : Flow - Phasic 3. Axillary Vein: Compressibility - Fully compressible: Thrombus - None 4. Brachial Vein: Compressibility - Fully compressible: Thrombus - None 5. Ulnar Vein:Compressibility - Fully compressible: Thrombus - None 6. Radial Vein:Compressibility - Fully compressible: Thrombus - None 7. Cephalic Vein: Compressibility - Fully compressible: thrombus - None 7.1. Upper Arm: Proximal Diameter: 0.25cm. Mid Diameter: 0.27cm. Distal Diameter: 0.29cm. 7.2. Forearm: Proximal Diameter: 0.30cm. Mid Diameter:0.32cm. Distal Diameter: 0.27cm 8. Basilic Vein:Compressibility - Fully compressible: thrombus - None 8.1. Upper Arm:Proximal Diameter: 0.52cm. Mid Diameter: 0.39cm. Distal Diameter: 0.45cm. 8.2. Forearm: Proximal Diameter: 0.27cm. Mid Diameter:0.35cm. Distal Diameter: cm. LEFT: 1. Internal Jugular Vein: Compressibility - Fully compressible: Thrombus - None : Flow - Phasic 2. Subclavian Vein:Compressibility - Fully compressible: Thrombus - None : Flow - Phasic 3. Axillary Vein: Compressibility - Fully compressible: Thrombus - None 4. Brachial Vein: Compressibility - Fully compressible: Thrombus - None 5. Ulnar Vein:Compressibility - Fully compressible: Thrombus - None 6. Radial Vein:Compressibility - Fully compressible: Thrombus - None 7. Cephalic Vein: Compressibility - Fully compressible: thrombus - None 7.1. Upper Arm: Proximal Diameter: 0.33cm. Mid Diameter: 0.39cm. Distal Diameter: cm. 7.2. Forearm: Proximal Diameter: cm. Mid Diameter:cm. Distal Diameter: 0.24cm 8. Basilic Vein:Compressibility - Not evaluated due to arm position(Left side hemiparesis) 8.1. Upper Arm:Proximal Diameter: cm. Mid Diameter: cm. Distal Diameter: cm. 8.2. Forearm: Proximal Diameter: cm. Mid Diameter:cm. Distal Diameter: cm. OTHER FINDINGS: Right: Distal brachial artery measured 0.35 cm, with triphasic arterial flow and velocity of 96.3 cm/sec, Left: Distal brachial artery measured 0.46 cm, with triphasic arterial flow and velocity of 96.3 cm/sec, IMPRESSION: Right: Diameter measurements of the right cephalic vein is measured between 0.32 cm and 0.25 cm and basilic vein is measured between 0.52 cm and 0.27 cm. Left: Diameter measurements of the left cephalic vein is measured between 0.39 cm and 0.24 cm and basilic vein is measured between cm and cm.
--- NOTE | 2016-10-17 12:21 | VASCLAB ---
STUDY DESCRIPTION: HISTORY: peripheral vascular disease Right calf ulceration PRIORS: None. TECHNIQUE: Pulse volume recording waveforms and segmental pressures of bilateral lower extremities at multiple levels were obtained. Ankle Brachial Indices (ABIs) were calculated. Report prepared by Danie Magaña RVT RIGHT LOWER EXTREMITY: * Brachial artery: Pressure - 181 mmHg. * High thigh: Pressure - 220 mmHg: Ratio - 1.22: PVR waveform - Pulsatile * Low thigh: Pressure - 183 mmHg: Ratio - 1.01 PVR waveform: Pulsatile * Calf: Pressure - 216 mmHg: Ratio - 1.19 PVR waveform: Reduced * Posterior tibial Artery: Pressure - 114 mmHg: Ratio - 0.63 PVR waveform: Reduced * Dorsalis pedis Artery: Pressure - 220 mmHg: Ratio - 1.22 PVR waveform: Reduced * Great toe: Pressure - 58 mmHg: Ratio - 0.32 PVR waveform: Reduced Ankle brachial index (FLORENTIN): 1.22 LEFT LOWER EXTREMITY: * Brachial artery: Pressure - mmHg. * High thigh: Pressure - mmHg: Ratio - : PVR waveform - Pulsatile * Low thigh: Pressure - mmHg: Ratio - PVR waveform: Pulsatile * Calf: Pressure - mmHg: Ratio - PVR waveform: Pulsatile * Posterior tibial Artery: Pressure - mmHg: Ratio - PVR waveform: Pulsatile * Dorsalis pedis Artery: Pressure - mmHg: Ratio - PVR waveform: Pulsatile * Great toe: Pressure - mmHg: Ratio - PVR waveform: Pulsatile Ankle brachial index (FLORENTIN): OTHER FINDINGS: Right: Left: AKA IMPRESSION: Right: There was evidence of mild femoro-popliteal and moderate infrapopliteal arterial occlusive disease in the right lower extremity, in addition there was medial calcification and small vessels disease. Left:
--- NOTE | 2016-10-17 12:53 | CP.PCM.PN ---
Subjective - Date & Time of Evaluation Date of Evaluation: 10/17/16 Time of Evaluation: 12:50 - Subjective Subjective: s/p first dialysis 10/16- tolerated well Eating well, feels better IJ right placed for HD No c/o dyspnea,n,v,chills,fever, diarrhea BP controlled Less edematous Objective - Vital Signs/Intake and Output Vital Signs (last 24 hours): Temp Pulse Resp BP Pulse Ox 98.6 F 88 18 150/72 95 10/17/16 07:35 10/17/16 07:35 10/17/16 07:35 10/17/16 09:48 10/17/16 07:35 Intake and Output: 10/17/16 10/17/16 06:59 18:59 Intake Total 470 Output Total 1 Balance 469 - Medications Medications: Current Medications Albuterol/Ipratropium (Duoneb 3 Mg/0.5 Mg (3 Ml) Ud) 3 ml INH RQ6 PRN PRN Reason: Shortness of Breath Amlodipine Besylate (Norvasc) 10 mg PO DAILY [facility] Last Admin: 10/17/16 09:48 Dose: 10 mg Aspirin (Aspirin Chewable) 81 mg PO DAILY [facility] Last Admin: 10/16/16 13:18 Dose: 81 mg Calcium Acetate (Phoslo) 667 mg PO TIDCC [facility] Last Admin: 10/17/16 12:37 Dose: Not Given Carvedilol (Coreg) 12.5 mg PO BID [facility] Last Admin: 10/17/16 09:48 Dose: 12.5 mg Escitalopram Oxalate (Lexapro) 10 mg PO DAILY [facility] Last Admin: 10/17/16 09:49 Dose: 10 mg Famotidine (Pepcid) 20 mg PO DAILY [facility] Last Admin: 10/17/16 09:48 Dose: 20 mg Ferric Sodium Gluconate Complex (Ferrlecit) 125 mg IVPB DAILY [facility] Stop: 10/24/16 10:16 Last Admin: 10/17/16 09:49 Dose: 125 mg Furosemide (Lasix) 40 mg IVP DAILY [facility] Last Admin: 10/17/16 09:48 Dose: 40 mg Heparin Sodium (Porcine) (Heparin) 5,000 units SC Q8 [facility] Last Admin: 10/17/16 06:07 Dose: 5,000 units Piperacillin Sod/Tazobactam Sod (Zosyn 2.25 Gm Iv Premix) 50 mls @ 100 mls/hr IVPB Q8H [facility] Last Admin: 10/17/16 08:13 Dose: 100 mls/hr Insulin Human Regular (Novolin R) 0 unit SC ACHS [facility] PRN Reason: Protocol Last Admin: 10/17/16 07:52 Dose: Not Given Mirtazapine (Remeron) 7.5 mg PO HS [facility] Last Admin: 10/16/16 21:11 Dose: 7.5 mg Rosuvastatin Calcium (Crestor) 5 mg PO [facility] Last Admin: 10/16/16 21:10 Dose: 5 mg - Labs Labs: 10/17/16 07:00 10/17/16 07:00 PT 11.4 SECONDS (9.7-12.2) 10/14/16 13:15 INR 1.0 10/14/16 13:15 APTT 37 SECONDS (21-34) H 10/14/16 13:15 - Constitutional Appears: No Acute Distress, Chronically Ill - Head Exam Head Exam: ATRAUMATIC, NORMAL INSPECTION - Eye Exam Eye Exam: EOMI, Normal appearance - Neck Exam Neck Exam: Normal Inspection. absent: Tenderness - Respiratory Exam Respiratory Exam: Clear to Ausculation Bilateral, NORMAL BREATHING PATTERN - Cardiovascular Exam Cardiovascular Exam: REGULAR RHYTHM, +S1 - GI/Abdominal Exam GI & Abdominal Exam: Soft. absent: Tenderness - Extremities Exam Extremities Exam: Pedal Edema. absent: Tenderness - Neurological Exam Neurological Exam: Alert, Motor Sensory Deficit - Skin Skin Exam: Dry, Warm Assessment and Plan (1) Diabetic ulcer of lower leg Status: Acute (2) Acute renal failure (ARF) Status: Acute (3) HTN (hypertension) Status: Chronic (4) Type 2 diabetes mellitus with diabetic nephropathy Status: Acute (5) CVA (cerebrovascular accident) Status: Acute (6) ESRD (end stage renal disease) Status: Acute - Assessment and Plan (Free Text) Plan: Dialysis TTS Change to oral lasix Monitor BP
--- NOTE | 2016-10-17 13:43 | RAD ---
PROCEDURE: Fluoroscopy dated 10/16/2016 HISTORY: Fluoroscopic guided CVA device placement the patient with a history of renal failure COMPARISON: Comparison made with chest radiograph dated 10/14/2016 TECHNIQUE: Single frontal fluoroscopic view of the right lung apex and upper mediastinum demonstrate FINDINGS: Study demonstrates in situ right IJ central venous catheter with tip in the SVC/ RA junction. 12.3 seconds of fluoroscopy time utilized. Radiation dose = 1.29 mGy IMPRESSION: Fluoroscopic guided right IJ central venous catheter placement.
--- NOTE | 2016-10-17 23:55 | CP.PCM.PN ---
<Eduardo Meier - Last Filed: 10/18/16 00:33> Subjective - Date & Time of Evaluation Date of Evaluation: 10/17/16 Time of Evaluation: 09:18 - Subjective Subjective: Pt seen and examined. Pt reports that she is feeling well today. Pt denies pain at ulcer site of right lateral leg. Pt denies fever, chills, chest pain, shortness of breath, nausea, and vomiting. Objective - Vital Signs/Intake and Output Vital Signs (last 24 hours): Temp Pulse Resp BP Pulse Ox 98 F 79 20 162/62 H 94 L 10/17/16 16:00 10/17/16 16:00 10/17/16 16:00 10/17/16 17:58 10/17/16 16:00 Intake and Output: 10/17/16 10/18/16 18:59 06:59 Intake Total 600 Output Total 2 Balance 598 - Medications Medications: Current Medications Albuterol/Ipratropium (Duoneb 3 Mg/0.5 Mg (3 Ml) Ud) 3 ml INH RQ6 PRN PRN Reason: Shortness of Breath Amlodipine Besylate (Norvasc) 10 mg PO DAILY [facility] Last Admin: 10/17/16 09:48 Dose: 10 mg Aspirin (Aspirin Chewable) 81 mg PO DAILY [facility] Last Admin: 10/17/16 15:00 Dose: 81 mg Calcium Acetate (Phoslo) 667 mg PO TIDCC [facility] Last Admin: 10/17/16 17:58 Dose: 667 mg Carvedilol (Coreg) 12.5 mg PO BID [facility] Last Admin: 10/17/16 17:58 Dose: 12.5 mg Escitalopram Oxalate (Lexapro) 10 mg PO DAILY [facility] Last Admin: 10/17/16 09:49 Dose: 10 mg Famotidine (Pepcid) 20 mg PO DAILY [facility] Last Admin: 10/17/16 09:48 Dose: 20 mg Ferric Sodium Gluconate Complex (Ferrlecit) 125 mg IVPB DAILY [facility] Stop: 10/24/16 10:16 Last Admin: 10/17/16 09:49 Dose: 125 mg Furosemide (Lasix) 40 mg PO DAILY [facility] Heparin Sodium (Porcine) (Heparin) 5,000 units SC Q8 [facility] Last Admin: 10/17/16 22:27 Dose: 5,000 units Piperacillin Sod/Tazobactam Sod (Zosyn 2.25 Gm Iv Premix) 50 mls @ 100 mls/hr IVPB Q8H [facility] Last Admin: 10/17/16 17:59 Dose: 100 mls/hr Insulin Human Regular (Novolin R) 0 unit SC ACHS [facility] PRN Reason: Protocol Last Admin: 10/17/16 22:29 Dose: Not Given Mirtazapine (Remeron) 7.5 mg PO HS [facility] Last Admin: 10/17/16 22:28 Dose: 7.5 mg Rosuvastatin Calcium (Crestor) 5 mg PO HS [facility] Last Admin: 10/17/16 22:27 Dose: 5 mg - Labs Labs: 10/17/16 07:00 10/17/16 07:00 PT 11.4 SECONDS (9.7-12.2) 10/14/16 13:15 INR 1.0 10/14/16 13:15 APTT 37 SECONDS (21-34) H 10/14/16 13:15 - Constitutional Appears: No Acute Distress - Head Exam Head Exam: ATRAUMATIC, NORMOCEPHALIC - Eye Exam Eye Exam: EOMI, PERRL - ENT Exam ENT Exam: Mucous Membranes Moist. absent: Mucous Membranes Dry - Respiratory Exam Respiratory Exam: Clear to Ausculation Bilateral. absent: Rales, Rhonchi, Wheezes - Cardiovascular Exam Cardiovascular Exam: +S1, +S2 - GI/Abdominal Exam GI & Abdominal Exam: Soft, Tenderness. absent: Distended, Guarding - Extremities Exam Extremities Exam: absent: Pedal Edema Additional comments: Left AKA, right lateral leg venous ulcer - Neurological Exam Neurological Exam: Alert, Awake, Oriented x3 - Psychiatric Exam Psychiatric exam: Normal Affect, Normal Mood - Skin Skin Exam: Warm Additional comments: right lateral leg venous ulcer Assessment and Plan - Assessment and Plan (Free Text) Assessment: Right Lateral Lower Extremity Ulcer WBc 11.6 today Afebrile, nontachycardic Blood cultures - no growth after 3 days Zosyn 2.25 gm IVPB q8h Consult for wound care Tibia/Fibula X-ray: soft tissue changes consistent with extensive circumferential subcutaneous edema/lymphedema/cellulitis. Posterior mid calf soft lucency consistent with history of calf ulcer. Atherosclerotic vascular disease. (see full report) PT/OT Lower Extremity arterial doppler pending ESRD BUN/CR: 43/7.0 today Est GFR 6 Renal ultrasound - medical renal disease, no evidence of nephrolithiasis or hydronephrosis (please see full report) Consulted nephrology, Dr. Salinas. Help appreciated. As per nephrology, pt needs emergent dialysis General Surgery, Dr. Martinez, consulted for stat dialysis catheter placement Pt made NPO and lovenox held Pt day 1 s/p dialysis catheter placement Phoslo 667 mg po tidcc Ferrlecit 125 mg IV qd HTN: BP - 150/72 Pt taken to OR for dialysis cath placement and emergent dialysis General surgery, Dr. Martinez, consulted for catheter placement Norvasc 10 mg po qd Coreg 12.5mg po bid Lasix 40 mg po qd Diabetes Mellitus RISS Accuchecks History of CVA Crestor 5 mg po HS ASA 81 mg po daily PT/OT Uncontrolled Asthma Duoneb RQ6 PRN for shortness of breath CXR: interstitial prominence, May reflect infection or edema. Probable small pleural effusion. Monitor Hyperlipidemia Crestor 5 mg po HS LDL 126 Anemia hemoglobin 10.1 Iron 51 Depression: Remeron 7.5 mg po hs Lexapro 10 mg po qd Prophylaxis: Lovenox 30 mg SC daily Pepcid 20 mg po daily SCD contraindicated due to right lower extremity ulcer and left AKA <Abel Flores Jr. - Last Filed: 11/02/16 13:41> Objective - Vital Signs/Intake and Output Vital Signs (last 24 hours): Temp Pulse Resp BP Pulse Ox 98.3 F 77 20 112/63 95 10/23/16 16:00 10/23/16 16:00 10/23/16 16:00 10/23/16 16:00 10/23/16 16:00 - Labs Labs: 10/21/16 16:17 10/21/16 16:17 PT 11.4 SECONDS (9.7-12.2) 10/14/16 13:15 INR 1.0 10/14/16 13:15 APTT 37 SECONDS (21-34) H 10/14/16 13:15 Attending/Attestation - Attestation I have personally seen and examined this patient.: Yes I have fully participated in the care of the patient.: Yes I have reviewed all pertinent clinical information, including history, physical exam and plan: Yes Notes (Text): 11/02/16 13:41 Agree with findings and plan
[2016-10-17 23:58] LABS: CALCIUM 6.6 mg/dL (8.6-10.4)
[2016-10-18] MEDS: Piperacill/Tazo 2.25gm in Dex 50 ML IVPB SCH ×4 (00:41→23:43)
--- NOTE | 2016-10-18 04:37 | CP.PCM.PN ---
<Renita Vega - Last Filed: 10/18/16 04:34> Subjective - Date & Time of Evaluation Date of Evaluation: 10/18/16 Time of Evaluation: 04:34 - Subjective Subjective: Pt seen and examined. Pt has no complaints. She denies pain to right lower extremity. Pt denies fever, chills, chest pain, shortness of breath, abdominal pain, nausea, vomiting, diarrhea, and constipation. Objective - Vital Signs/Intake and Output Vital Signs (last 24 hours): Temp Pulse Resp BP Pulse Ox 98 F 70 20 142/77 96 10/17/16 23:25 10/17/16 23:25 10/17/16 23:25 10/17/16 23:25 10/17/16 23:25 Intake and Output: 10/17/16 10/18/16 18:59 06:59 Intake Total 600 Output Total 2 Balance 598 - Medications Medications: Current Medications Albuterol/Ipratropium (Duoneb 3 Mg/0.5 Mg (3 Ml) Ud) 3 ml INH RQ6 PRN PRN Reason: Shortness of Breath Amlodipine Besylate (Norvasc) 10 mg PO DAILY [facility] Last Admin: 10/17/16 09:48 Dose: 10 mg Aspirin (Aspirin Chewable) 81 mg PO DAILY [facility] Last Admin: 10/17/16 15:00 Dose: 81 mg Calcium Acetate (Phoslo) 667 mg PO TIDCC [facility] Last Admin: 10/17/16 17:58 Dose: 667 mg Carvedilol (Coreg) 12.5 mg PO BID [facility] Last Admin: 10/17/16 17:58 Dose: 12.5 mg Escitalopram Oxalate (Lexapro) 10 mg PO DAILY [facility] Last Admin: 10/17/16 09:49 Dose: 10 mg Famotidine (Pepcid) 20 mg PO DAILY [facility] Last Admin: 10/17/16 09:48 Dose: 20 mg Ferric Sodium Gluconate Complex (Ferrlecit) 125 mg IVPB DAILY [facility] Stop: 10/24/16 10:16 Last Admin: 10/17/16 09:49 Dose: 125 mg Furosemide (Lasix) 40 mg PO DAILY [facility] Heparin Sodium (Porcine) (Heparin) 5,000 units SC Q8 [facility] Last Admin: 10/17/16 22:27 Dose: 5,000 units Piperacillin Sod/Tazobactam Sod (Zosyn 2.25 Gm Iv Premix) 50 mls @ 100 mls/hr IVPB Q8H [facility] Last Admin: 10/18/16 00:41 Dose: 100 mls/hr Insulin Human Regular (Novolin R) 0 unit SC ACHS [facility] PRN Reason: Protocol Last Admin: 10/17/16 22:29 Dose: Not Given Mirtazapine (Remeron) 7.5 mg PO [facility] Last Admin: 10/17/16 22:28 Dose: 7.5 mg Rosuvastatin Calcium (Crestor) 5 mg PO [facility] Last Admin: 10/17/16 22:27 Dose: 5 mg - Labs Labs: 10/17/16 07:00 10/17/16 07:00 PT 11.4 SECONDS (9.7-12.2) 10/14/16 13:15 INR 1.0 10/14/16 13:15 APTT 37 SECONDS (21-34) H 10/14/16 13:15 - Eye Exam Eye Exam: EOMI, PERRL - ENT Exam ENT Exam: Mucous Membranes Moist - Respiratory Exam Respiratory Exam: Clear to Ausculation Bilateral, NORMAL BREATHING PATTERN. absent: Rales, Rhonchi, Wheezes - Cardiovascular Exam Cardiovascular Exam: +S1, +S2. absent: Tachycardia - GI/Abdominal Exam GI & Abdominal Exam: Soft, Normal Bowel Sounds. absent: Tenderness - Extremities Exam Additional comments: Left AKA, right lateral leg venous ulcer - Neurological Exam Neurological Exam: Alert, Awake, Oriented x3 Neuro motor strength exam: Left Upper Extremity: 2/1, Right Upper Extremity: 5, Left Lower Extremity: 2/1, Right Lower Extremity: 5 - Psychiatric Exam Psychiatric exam: Normal Affect, Normal Mood - Skin Additional comments: right lateral leg venous ulcer Assessment and Plan - Assessment and Plan (Free Text) Assessment: Right Lateral Lower Extremity Ulcer F/U WBC 10/17/16: Leukocytosis 11.6 Afebrile, nontachycardic Blood cultures - no growth after 3 days Zosyn 2.25 gm IVPB q8h Consult for wound care Tibia/Fibula X-ray: soft tissue changes consistent with extensive circumferential subcutaneous edema/lymphedema/cellulitis. Posterior mid calf soft lucency consistent with history of calf ulcer. Atherosclerotic vascular disease. (see full report) PT/OT Lower Extremity arterial doppler pending ESRD BUN/CR: 21/4.5 Tolerated hemodialysis well on 10/16. Dialysis schedule TTS Change to oral Lasix Est GFR 6 Renal ultrasound - medical renal disease, no evidence of nephrolithiasis or hydronephrosis (please see full report) Consulted nephrology, Dr. Salinas. Help appreciated. As per nephrology, pt needed emergent dialysis General Surgery, Dr. Martinez, consulted for stat dialysis catheter placement Pt made NPO and lovenox held Pt day 1 s/p dialysis catheter placement Phoslo 667 mg po tidcc Ferrlecit 125 mg IV qd HTN: BP - 142/77 Pt taken to OR for dialysis cath placement and emergent dialysis General surgery, Dr. Martinez, consulted for catheter placement Norvasc 10 mg po qd Coreg 12.5mg po bid Lasix 40 mg po qd Diabetes Mellitus Glucose 208 Hemoglobin a1c 6.8 RISS Accuchecks History of CVA Crestor 5 mg po HS ASA 81 mg po daily PT/OT Uncontrolled Asthma Duoneb RQ6 PRN for shortness of breath CXR: interstitial prominence, May reflect infection or edema. Probable small pleural effusion. Monitor Hyperlipidemia Crestor 5 mg po HS triglycerides 336 Cholesterol 290 LDL 126 Anemia of Chronic Disease hemoglobin 10.7 Iron 51 TIBC 189 % saturation 27 Ferritin 241 Ferrlecit daily Depression: Remeron 7.5 mg po hs Lexapro 10 mg po qd Prophylaxis: Lovenox 30 mg SC daily Pepcid 20 mg po daily SCD contraindicated due to right lower extremity ulcer and left AKA <Abel Flores Jr. - Last Filed: 11/02/16 13:41> Objective - Vital Signs/Intake and Output Vital Signs (last 24 hours): Temp Pulse Resp BP Pulse Ox 98.3 F 77 20 112/63 95 10/23/16 16:00 10/23/16 16:00 10/23/16 16:00 10/23/16 16:00 10/23/16 16:00 - Labs Labs: 10/21/16 16:17 10/21/16 16:17 PT 11.4 SECONDS (9.7-12.2) 10/14/16 13:15 INR 1.0 10/14/16 13:15 APTT 37 SECONDS (21-34) H 10/14/16 13:15 Attending/Attestation - Attestation I have personally seen and examined this patient.: Yes I have fully participated in the care of the patient.: Yes I have reviewed all pertinent clinical information, including history, physical exam and plan: Yes Notes (Text): 11/02/16 13:41 Agree with findings and plan
[2016-10-18 06:58] LABS: POTASSIUM 3.3 mmol/L (3.6-5.2)
[2016-10-18 07:00] LABS: ALB/GLOB RATIO 0.9 (1.0-2.1); BILIRUBIN,TOTAL 0.5 mg/dL (0.2-1.3)
[2016-10-18 07:01] LABS: CALCIUM 6.5 mg/dl (8.6-10.4)
[2016-10-18] MEDS: (Novolin R) Insulin Human Regular 100 units/ml vial SC SCH ×4 (07:45→21:37)
--- NOTE | 2016-10-18 08:32 | CP.PCM.PN ---
Subjective - Date & Time of Evaluation Date of Evaluation: 10/18/16 Time of Evaluation: 08:29 - Subjective Subjective: Surgery: Dr. Martinez Pt seen and examined. No acute events overnight. States she feels ok. Denies complaints at this time. No fevers/chills overnight. Objective - Vital Signs/Intake and Output Vital Signs (last 24 hours): Temp Pulse Resp BP Pulse Ox 96 F L 78 20 157/78 H 100 10/18/16 07:00 10/18/16 07:00 10/18/16 07:00 10/18/16 07:00 10/18/16 07:00 - Medications Medications: Current Medications Albuterol/Ipratropium (Duoneb 3 Mg/0.5 Mg (3 Ml) Ud) 3 ml INH RQ6 PRN PRN Reason: Shortness of Breath Last Admin: 10/18/16 08:01 Dose: 3 ml Amlodipine Besylate (Norvasc) 10 mg PO DAILY [facility] Last Admin: 10/17/16 09:48 Dose: 10 mg Aspirin (Aspirin Chewable) 81 mg PO DAILY [facility] Last Admin: 10/17/16 15:00 Dose: 81 mg Calcium Acetate (Phoslo) 667 mg PO TIDCC [facility] Last Admin: 10/17/16 17:58 Dose: 667 mg Carvedilol (Coreg) 12.5 mg PO BID [facility] Last Admin: 10/17/16 17:58 Dose: 12.5 mg Escitalopram Oxalate (Lexapro) 10 mg PO DAILY [facility] Last Admin: 10/17/16 09:49 Dose: 10 mg Famotidine (Pepcid) 20 mg PO DAILY [facility] Last Admin: 10/17/16 09:48 Dose: 20 mg Ferric Sodium Gluconate Complex (Ferrlecit) 125 mg IVPB DAILY [facility] Stop: 10/24/16 10:16 Last Admin: 10/17/16 09:49 Dose: 125 mg Furosemide (Lasix) 40 mg PO DAILY [facility] Heparin Sodium (Porcine) (Heparin) 5,000 units SC Q8 [facility] Last Admin: 10/18/16 05:37 Dose: 5,000 units Piperacillin Sod/Tazobactam Sod (Zosyn 2.25 Gm Iv Premix) 50 mls @ 100 mls/hr IVPB Q8H [facility] Last Admin: 10/18/16 00:41 Dose: 100 mls/hr Insulin Human Regular (Novolin R) 0 unit SC ACHS [facility] PRN Reason: Protocol Last Admin: 10/18/16 07:45 Dose: Not Given Mirtazapine (Remeron) 7.5 mg PO HS [facility] Last Admin: 10/17/16 22:28 Dose: 7.5 mg Rosuvastatin Calcium (Crestor) 5 mg PO HS [facility] Last Admin: 10/17/16 22:27 Dose: 5 mg - Labs Labs: 10/17/16 07:00 10/18/16 06:28 PT 11.4 SECONDS (9.7-12.2) 10/14/16 13:15 INR 1.0 10/14/16 13:15 APTT 37 SECONDS (21-34) H 10/14/16 13:15 - Constitutional Appears: Well, No Acute Distress - Head Exam Head Exam: ATRAUMATIC, NORMOCEPHALIC - ENT Exam ENT Exam: Mucous Membranes Moist - Neck Exam Additional comments: R IJ permacath in place - Respiratory Exam Respiratory Exam: NORMAL BREATHING PATTERN - Cardiovascular Exam Cardiovascular Exam: RRR - GI/Abdominal Exam GI & Abdominal Exam: Soft. absent: Tenderness - Neurological Exam Neurological Exam: Alert, Awake, Oriented x3 - Skin Skin Exam: Dry, Warm Assessment and Plan - Assessment and Plan (Free Text) Assessment: 61F with ESRD Plan: - OR mon for L arm AVF - Keep NPO after midnight on sun - d/w Dr. Juan Kaye, PGY-2 Surgery
--- NOTE | 2016-10-18 08:46 | CP.PCM.PN ---
Subjective - Date & Time of Evaluation Date of Evaluation: 10/18/16 Time of Evaluation: 08:40 - Subjective Subjective: comfortable in bed ROS denies headache,chest or abdomenal pain pain rt leg cough productive of sputum intermittent vomiting after cough Objective - Vital Signs/Intake and Output Vital Signs (last 24 hours): Temp Pulse Resp BP Pulse Ox 96 F L 78 20 157/78 H 100 10/18/16 07:00 10/18/16 07:00 10/18/16 07:00 10/18/16 07:00 10/18/16 07:00 - Medications Medications: Current Medications Albuterol/Ipratropium (Duoneb 3 Mg/0.5 Mg (3 Ml) Ud) 3 ml INH RQ6 PRN PRN Reason: Shortness of Breath Last Admin: 10/18/16 08:01 Dose: 3 ml Amlodipine Besylate (Norvasc) 10 mg PO DAILY [facility] Last Admin: 10/17/16 09:48 Dose: 10 mg Aspirin (Aspirin Chewable) 81 mg PO DAILY [facility] Last Admin: 10/17/16 15:00 Dose: 81 mg Calcium Acetate (Phoslo) 667 mg PO TIDCC [facility] Last Admin: 10/17/16 17:58 Dose: 667 mg Carvedilol (Coreg) 12.5 mg PO BID [facility] Last Admin: 10/17/16 17:58 Dose: 12.5 mg Escitalopram Oxalate (Lexapro) 10 mg PO DAILY [facility] Last Admin: 10/17/16 09:49 Dose: 10 mg Famotidine (Pepcid) 20 mg PO DAILY [facility] Last Admin: 10/17/16 09:48 Dose: 20 mg Ferric Sodium Gluconate Complex (Ferrlecit) 125 mg IVPB DAILY [facility] Stop: 10/24/16 10:16 Last Admin: 10/17/16 09:49 Dose: 125 mg Furosemide (Lasix) 40 mg PO DAILY [facility] Heparin Sodium (Porcine) (Heparin) 5,000 units SC Q8 [facility] Last Admin: 10/18/16 05:37 Dose: 5,000 units Piperacillin Sod/Tazobactam Sod (Zosyn 2.25 Gm Iv Premix) 50 mls @ 100 mls/hr IVPB Q8H [facility] Last Admin: 10/18/16 00:41 Dose: 100 mls/hr Insulin Human Regular (Novolin R) 0 unit SC ACHS [facility] PRN Reason: Protocol Last Admin: 10/18/16 07:45 Dose: Not Given Mirtazapine (Remeron) 7.5 mg PO HS [facility] Last Admin: 10/17/16 22:28 Dose: 7.5 mg Rosuvastatin Calcium (Crestor) 5 mg PO HS [facility] Last Admin: 10/17/16 22:27 Dose: 5 mg - Labs Labs: 10/17/16 07:00 10/18/16 06:28 PT 11.4 SECONDS (9.7-12.2) 10/14/16 13:15 INR 1.0 10/14/16 13:15 APTT 37 SECONDS (21-34) H 10/14/16 13:15 - Constitutional Appears: No Acute Distress - ENT Exam ENT Exam: Mucous Membranes Moist - Respiratory Exam Respiratory Exam: Clear to Ausculation Bilateral. absent: Accessory Muscle Use - Cardiovascular Exam Cardiovascular Exam: REGULAR RHYTHM - GI/Abdominal Exam GI & Abdominal Exam: Soft. absent: Distended, Tenderness - Extremities Exam Additional comments: bandage posterior rt calf - Neurological Exam Neurological Exam: Alert, Awake - Psychiatric Exam Psychiatric exam: Normal Affect - Skin Skin Exam: Warm Assessment and Plan (1) Diabetic ulcer of lower leg Status: Acute (2) ESRD (end stage renal disease) Status: Acute (3) Type 2 diabetes mellitus with diabetic nephropathy Status: Acute - Assessment and Plan (Free Text) Plan: schedule dialysis today with mild ultrafiltration
[2016-10-18] MEDS: Ferric Sodium Gluconat Complex 62.5 mg/5 ml Vial IVPB SCH (10:00)
--- NOTE | 2016-10-19 00:25 | CP.PCM.PN ---
<Renita Vega - Last Filed: 10/19/16 00:23> Subjective - Date & Time of Evaluation Date of Evaluation: 10/19/16 Time of Evaluation: 00:23 - Subjective Subjective: Pt seen and examined. Pt has no complaints. She states her right lower extremity swelling has significantly decreased. She admits to mild tenderness to palpation of affected area. Pt denies fever, chills, chest pain, shortness of breath, abdominal pain, nausea, vomiting, diarrhea, and constipation. Objective - Vital Signs/Intake and Output Vital Signs (last 24 hours): Temp Pulse Resp BP Pulse Ox 98.9 F 90 18 133/78 95 10/18/16 15:35 10/18/16 23:20 10/18/16 15:35 10/18/16 17:28 10/18/16 15:35 Intake and Output: 10/18/16 10/19/16 18:59 06:59 Intake Total 290 Balance 290 - Medications Medications: Current Medications Albuterol/Ipratropium (Duoneb 3 Mg/0.5 Mg (3 Ml) Ud) 3 ml INH RQ6 PRN PRN Reason: Shortness of Breath Last Admin: 10/18/16 08:01 Dose: 3 ml Amlodipine Besylate (Norvasc) 10 mg PO DAILY [facility] Last Admin: 10/18/16 10:54 Dose: Not Given Aspirin (Aspirin Chewable) 81 mg PO DAILY [facility] Last Admin: 10/18/16 10:53 Dose: Not Given Calcium Acetate (Phoslo) 667 mg PO TIDCC [facility] Last Admin: 10/18/16 17:27 Dose: 667 mg Carvedilol (Coreg) 12.5 mg PO BID [facility] Last Admin: 10/18/16 17:28 Dose: 12.5 mg Escitalopram Oxalate (Lexapro) 10 mg PO DAILY [facility] Last Admin: 10/18/16 10:54 Dose: Not Given Famotidine (Pepcid) 20 mg PO DAILY [facility] Last Admin: 10/18/16 10:54 Dose: Not Given Ferric Sodium Gluconate Complex (Ferrlecit) 125 mg IVPB DAILY [facility] Stop: 10/24/16 10:16 Last Admin: 10/18/16 10:00 Dose: Not Given Furosemide (Lasix) 40 mg PO DAILY [facility] Last Admin: 10/18/16 10:53 Dose: Not Given Heparin Sodium (Porcine) (Heparin) 5,000 units SC Q8 [facility] Last Admin: 10/18/16 21:20 Dose: 5,000 units Piperacillin Sod/Tazobactam Sod (Zosyn 2.25 Gm Iv Premix) 50 mls @ 100 mls/hr IVPB Q8H [facility] Last Admin: 10/18/16 23:43 Dose: 100 mls/hr Insulin Human Regular (Novolin R) 0 unit SC ACHS [facility] PRN Reason: Protocol Last Admin: 10/18/16 21:37 Dose: Not Given Mirtazapine (Remeron) 7.5 mg PO HS [facility] Last Admin: 10/18/16 21:20 Dose: 7.5 mg Rosuvastatin Calcium (Crestor) 5 mg PO HS [facility] Last Admin: 10/18/16 21:20 Dose: 5 mg - Labs Labs: 10/17/16 07:00 10/18/16 06:28 PT 11.4 SECONDS (9.7-12.2) 10/14/16 13:15 INR 1.0 10/14/16 13:15 APTT 37 SECONDS (21-34) H 10/14/16 13:15 - Constitutional Appears: Non-toxic, No Acute Distress - Head Exam Head Exam: ATRAUMATIC, NORMAL INSPECTION, NORMOCEPHALIC - Eye Exam Eye Exam: EOMI, Normal appearance, PERRL - ENT Exam ENT Exam: Mucous Membranes Moist, Normal Exam - Respiratory Exam Respiratory Exam: Clear to Ausculation Bilateral, NORMAL BREATHING PATTERN - Cardiovascular Exam Cardiovascular Exam: +S1, +S2 - GI/Abdominal Exam GI & Abdominal Exam: Soft, Normal Bowel Sounds - Extremities Exam Extremities Exam: Tenderness Additional comments: xerofoam dressing to right lateral calf intact - Neurological Exam Neurological Exam: Alert, Awake - Psychiatric Exam Psychiatric exam: Normal Affect, Normal Mood - Skin Skin Exam: Intact, Normal Color Assessment and Plan - Assessment and Plan (Free Text) Assessment: Right Lateral Lower Extremity Ulcer Monitor WBC 10/17/16: Leukocytosis 11.6 Afebrile, nontachycardic Blood cultures - no growth after 3 days Zosyn 2.25 gm IVPB q8h Consult for wound care Tibia/Fibula X-ray: soft tissue changes consistent with extensive circumferential subcutaneous edema/lymphedema/cellulitis. Posterior mid calf soft lucency consistent with history of calf ulcer. Atherosclerotic vascular disease. (see full report) PT/OT Lower Extremity arterial doppler pending ESRD s/p hemodialysis with microfiltration Tolerated hemodialysis well on 10/16. Dialysis schedule TTS Change to oral Lasix Est GFR 6 Renal ultrasound - medical renal disease, no evidence of nephrolithiasis or hydronephrosis (please see full report) Consulted nephrology, Dr. Salinas. Help appreciated. As per nephrology, pt needed emergent dialysis General Surgery, Dr. Martinez, consulted for stat dialysis catheter placement Pt made NPO and lovenox held Pt day 1 s/p dialysis catheter placement Phoslo 667 mg po tidcc Ferrlecit 125 mg IV qd HTN: Normotensive Pt taken to OR for dialysis cath placement and emergent dialysis General surgery, Dr. Martinez, consulted for catheter placement Norvasc 10 mg po qd Coreg 12.5mg po bid Lasix 40 mg po qd Diabetes Mellitus Glucose 253 Hemoglobin a1c 6.8 RISS - increased to high protocol Accuchecks History of CVA Crestor 5 mg po HS ASA 81 mg po daily PT/OT Uncontrolled Asthma Duoneb RQ6 PRN for shortness of breath CXR: interstitial prominence, May reflect infection or edema. Probable small pleural effusion. Monitor Hyperlipidemia Crestor 5 mg po HS triglycerides 336 Cholesterol 290 LDL 126 Anemia of Chronic Disease hemoglobin 10.7 Iron 51 TIBC 189 % saturation 27 Ferritin 241 Ferrlecit daily Depression: Remeron 7.5 mg po hs Lexapro 10 mg po qd Prophylaxis: Lovenox 30 mg SC daily Pepcid 20 mg po daily SCD contraindicated due to right lower extremity ulcer and left AKA <Abel Flores Jr. - Last Filed: 11/02/16 13:42> Objective - Vital Signs/Intake and Output Vital Signs (last 24 hours): Temp Pulse Resp BP Pulse Ox 98.3 F 77 20 112/63 95 10/23/16 16:00 10/23/16 16:00 10/23/16 16:00 10/23/16 16:00 10/23/16 16:00 - Labs Labs: 10/21/16 16:17 10/21/16 16:17 PT 11.4 SECONDS (9.7-12.2) 10/14/16 13:15 INR 1.0 10/14/16 13:15 APTT 37 SECONDS (21-34) H 10/14/16 13:15 Attending/Attestation - Attestation I have personally seen and examined this patient.: Yes I have fully participated in the care of the patient.: Yes I have reviewed all pertinent clinical information, including history, physical exam and plan: Yes Notes (Text): 11/02/16 13:42 Agree with findings and plan
[2016-10-19 07:13] LABS: POTASSIUM 3.8 mmol/L (3.6-5.2)
[2016-10-19 07:15] LABS: ALB/GLOB RATIO 0.9 (1.0-2.1); BILIRUBIN,TOTAL 0.6 mg/dL (0.2-1.3); TOTAL PROTEIN 6.1 g/dL (6.3-8.3)
[2016-10-19 07:19] LABS: BASO # 0.1 K/uL (0.0-0.2); BASO % 0.8 % (0.0-2.0); EOS # 0.9 K/uL (0.0-0.7); EOS % 7.4 % (0.0-4.0); HEMATOCRIT 30.9 % (34.0-47.0); LYMPH # 2.6 K/uL (1.0-4.3); LYMPH % 21.2 % (20.0-40.0); MEAN CELL VOLUME 85.7 fL (81.0-99.0); MEAN CORPUSCULAR HEMOGLOBIN 27.9 pg (27.0-31.0); MEAN CORPUSCULAR HGB CONC 32.6 g/dL (33.0-37.0); MEAN PLATELET VOLUME 9.4 fL (7.2-11.7); MONO # 1.1 K/uL (0.0-0.8); MONO % 9.2 % (0.0-10.0); NRBC % 0.1 % (0.0-2.0); RED CELL DISTRIBUTION WIDTH 13.9 % (11.5-14.5); WHITE BLOOD COUNT 12.3 K/uL (4.8-10.8)
[2016-10-19] MEDS: Piperacill/Tazo 2.25gm in Dex 50 ML IVPB SCH ×2 (08:47→18:05)
[2016-10-19] MEDS: (Novolin R) Insulin Human Regular 100 units/ml vial SC SCH ×4 (08:48→21:35)
[2016-10-19] MEDS: Ferric Sodium Gluconat Complex 62.5 mg/5 ml Vial IVPB SCH (10:13)
--- NOTE | 2016-10-19 14:34 | CP.PCM.PN ---
Subjective - Date & Time of Evaluation Date of Evaluation: 10/19/16 Time of Evaluation: 07:25 - Subjective Subjective: Pt S&E. NAEO. Pt has no complaints today. Surgical procedure explained at length. Pt denies nausea, fever, and chills. Objective - Vital Signs/Intake and Output Vital Signs (last 24 hours): Temp Pulse Resp BP Pulse Ox 98.3 F 81 20 146/79 97 10/19/16 07:55 10/19/16 07:55 10/19/16 07:55 10/19/16 10:12 10/19/16 07:55 Intake and Output: 10/19/16 10/19/16 06:59 18:59 Intake Total 290 Balance 290 - Medications Medications: Current Medications Albuterol/Ipratropium (Duoneb 3 Mg/0.5 Mg (3 Ml) Ud) 3 ml INH RQ6 PRN PRN Reason: Shortness of Breath Last Admin: 10/18/16 08:01 Dose: 3 ml Amlodipine Besylate (Norvasc) 10 mg PO DAILY [facility] Last Admin: 10/19/16 10:11 Dose: 10 mg Aspirin (Aspirin Chewable) 81 mg PO DAILY [facility] Last Admin: 10/19/16 10:20 Dose: 81 mg Calcium Acetate (Phoslo) 667 mg PO TIDCC [facility] Last Admin: 10/19/16 13:12 Dose: 667 mg Carvedilol (Coreg) 12.5 mg PO BID [facility] Last Admin: 10/19/16 10:12 Dose: 12.5 mg Escitalopram Oxalate (Lexapro) 10 mg PO DAILY [facility] Last Admin: 10/19/16 10:11 Dose: 10 mg Famotidine (Pepcid) 20 mg PO DAILY [facility] Last Admin: 10/19/16 10:12 Dose: 20 mg Ferric Sodium Gluconate Complex (Ferrlecit) 125 mg IVPB DAILY [facility] Stop: 10/24/16 10:16 Last Admin: 10/19/16 10:13 Dose: 125 mg Furosemide (Lasix) 40 mg PO DAILY [facility] Last Admin: 10/19/16 10:12 Dose: 40 mg Heparin Sodium (Porcine) (Heparin) 5,000 units SC Q8 [facility] Last Admin: 10/19/16 13:12 Dose: 5,000 units Piperacillin Sod/Tazobactam Sod (Zosyn 2.25 Gm Iv Premix) 50 mls @ 100 mls/hr IVPB Q8H [facility] Last Admin: 10/19/16 08:47 Dose: 100 mls/hr Insulin Human Regular (Novolin R) 0 unit SC ACHS [facility] PRN Reason: Protocol Last Admin: 10/19/16 13:12 Dose: 6 unit Mirtazapine (Remeron) 7.5 mg PO HS [facility] Last Admin: 10/18/16 21:20 Dose: 7.5 mg Rosuvastatin Calcium (Crestor) 5 mg PO HS [facility] Last Admin: 10/18/16 21:20 Dose: 5 mg - Labs Labs: 10/19/16 06:55 10/19/16 06:55 PT 11.4 SECONDS (9.7-12.2) 10/14/16 13:15 INR 1.0 10/14/16 13:15 APTT 37 SECONDS (21-34) H 10/14/16 13:15 - Constitutional Appears: Non-toxic, No Acute Distress - Eye Exam Eye Exam: EOMI. absent: Scleral icterus - ENT Exam ENT Exam: Mucous Membranes Moist - Respiratory Exam Respiratory Exam: NORMAL BREATHING PATTERN. absent: Respiratory Distress - Cardiovascular Exam Cardiovascular Exam: +S1, +S2 - GI/Abdominal Exam GI & Abdominal Exam: Soft. absent: Firm, Guarding, Rigid, Tenderness - Neurological Exam Neurological Exam: Alert, Awake, Oriented x3 - Psychiatric Exam Psychiatric exam: Anxious, Normal Affect - Skin Skin Exam: Dry, Warm Additional comments: permacath in L IJV Assessment and Plan - Assessment and Plan (Free Text) Assessment: 61F with ESRD - OR Mon for L arm AVF - Keep NPO after midnight - d/w Dr. Martinez
[2016-10-20] MEDS: Piperacill/Tazo 2.25gm in Dex 50 ML IVPB SCH ×3 (00:18→17:37)
[2016-10-20] MEDS ORDERED: Midazolam 2 MG/2 ML VIAL ONE (08:13)
[2016-10-20] MEDS ORDERED: Propofol 10 mg/ml Inj (20 ML) ONE (08:14)
[2016-10-20] MEDS: (Novolin R) Insulin Human Regular 100 units/ml vial SC SCH ×4 (08:30→22:24)
[2016-10-20] MEDS ORDERED: ceFAZolin 1 gm FROZEN Premix 0 ML IVPB ONE (08:39)
[2016-10-20] MEDS ORDERED: [UNRECOGNIZED DRUG - OTHER] IV ONE (11:38)
[2016-10-20] MEDS ORDERED: ceFAZolin 1 gm FROZEN Premix 100 ML IVPB ONE (11:39)
[2016-10-20] MEDS ORDERED: Sodium Chloride 0.9% 1,000 ML IV ONE ×2 (12:00)
--- NOTE | 2016-10-20 13:01 | CP.PCM.PN ---
Subjective - Date & Time of Evaluation Date of Evaluation: 10/20/16 Time of Evaluation: 12:58 - Subjective Subjective: Seen prior to surgery For AV access placement Stable dialysis 10/18 Feels better overall BP still elevated but better controlled Objective - Vital Signs/Intake and Output Vital Signs (last 24 hours): Temp Pulse Resp BP Pulse Ox 98.3 F 84 20 156/82 H 95 10/20/16 08:30 10/20/16 08:30 10/20/16 08:30 10/20/16 08:30 10/20/16 08:30 Intake and Output: 10/20/16 10/20/16 06:59 18:59 Intake Total 340 Balance 340 - Medications Medications: Current Medications Albuterol/Ipratropium (Duoneb 3 Mg/0.5 Mg (3 Ml) Ud) 3 ml INH RQ6 PRN PRN Reason: Shortness of Breath Last Admin: 10/18/16 08:01 Dose: 3 ml Amlodipine Besylate (Norvasc) 10 mg PO DAILY [facility] Last Admin: 10/19/16 10:11 Dose: 10 mg Aspirin (Aspirin Chewable) 81 mg PO DAILY [facility] Last Admin: 10/19/16 10:20 Dose: 81 mg Calcium Acetate (Phoslo) 667 mg PO TIDCC [facility] Last Admin: 10/20/16 08:39 Dose: Not Given Carvedilol (Coreg) 12.5 mg PO BID [facility] Last Admin: 10/19/16 18:06 Dose: 12.5 mg Escitalopram Oxalate (Lexapro) 10 mg PO DAILY [facility] Last Admin: 10/19/16 10:11 Dose: 10 mg Famotidine (Pepcid) 20 mg PO DAILY [facility] Last Admin: 10/19/16 10:12 Dose: 20 mg Ferric Sodium Gluconate Complex (Ferrlecit) 125 mg IVPB DAILY [facility] Stop: 10/24/16 10:16 Last Admin: 10/19/16 10:13 Dose: 125 mg Furosemide (Lasix) 40 mg PO DAILY [facility] Last Admin: 10/19/16 10:12 Dose: 40 mg Heparin Sodium (Porcine) (Heparin) 5,000 units SC Q8 [facility] Last Admin: 10/19/16 21:32 Dose: 5,000 units Piperacillin Sod/Tazobactam Sod (Zosyn 2.25 Gm Iv Premix) 50 mls @ 100 mls/hr IVPB Q8H [facility] Last Admin: 10/20/16 08:33 Dose: 100 mls/hr Insulin Human Regular (Novolin R) 0 unit SC ACHS [facility] PRN Reason: Protocol Last Admin: 10/20/16 08:30 Dose: Not Given Mirtazapine (Remeron) 7.5 mg PO [facility] Last Admin: 10/19/16 21:35 Dose: 7.5 mg Rosuvastatin Calcium (Crestor) 5 mg PO [facility] Last Admin: 10/19/16 21:31 Dose: 5 mg - Labs Labs: 10/19/16 06:55 10/20/16 09:23 PT 11.4 SECONDS (9.7-12.2) 10/14/16 13:15 INR 1.0 10/14/16 13:15 APTT 37 SECONDS (21-34) H 10/14/16 13:15 - Constitutional Appears: Non-toxic, Chronically Ill - Head Exam Head Exam: ATRAUMATIC, NORMAL INSPECTION - Eye Exam Eye Exam: EOMI, Normal appearance - Neck Exam Neck Exam: Normal Inspection. absent: Tenderness - Respiratory Exam Respiratory Exam: Clear to Ausculation Bilateral, NORMAL BREATHING PATTERN - Cardiovascular Exam Cardiovascular Exam: REGULAR RHYTHM, +S1 - GI/Abdominal Exam GI & Abdominal Exam: Soft. absent: Tenderness - Extremities Exam Extremities Exam: Pedal Edema. absent: Tenderness - Neurological Exam Neurological Exam: Alert, CN II-XII Intact - Skin Skin Exam: Dry, Warm Assessment and Plan (1) Diabetic ulcer of lower leg Status: Acute (2) Acute renal failure (ARF) Status: Acute (3) HTN (hypertension) Status: Chronic (4) Type 2 diabetes mellitus with diabetic nephropathy Status: Acute (5) CVA (cerebrovascular accident) Status: Acute (6) ESRD (end stage renal disease) Status: Acute - Assessment and Plan (Free Text) Plan: AV access surgery now Dialysis TTS Monitor BP follow up labs Will need outpt dialysis placement
--- NOTE | 2016-10-20 13:31 | RAD ---
PROCEDURE: Intraoperative Fluoroscopy. HISTORY: RENAL FAILURE FINDINGS: Fluoroscopic assistance was provided for right central venous catheter placement. Please refer to the operative report from
[2016-10-20] MEDS ORDERED: HYDROmorphone 0.5 mg/0.5 ml ISec IVP PRN (14:50)
[2016-10-20] MEDS: Ferric Sodium Gluconat Complex 62.5 mg/5 ml Vial IVPB SCH (15:00)
--- NOTE | 2016-10-20 15:10 | PCM.SURG1 ---
Surgeon's Initial Post Op Note - Surgeon's Notes Surgeon: Dr. Martinez Dairy Worker: Dr. Raymundo PGY1, Sathya Mcclain Type of Anesthesia: General Endo Pre-Operative Diagnosis: Renal Failure Operative Findings: see dictation Post-Operative Diagnosis: same Operation Performed: RIJ Permacath replacement w/ fluoro; Left AVF placement Specimen/Specimens Removed: none Estimated Blood Loss: EBL {In ML}: 30 Blood Products Given: N/A Drains Used: No Drains Post-Op Condition: Good Date of Surgery/Procedure: 10/20/16 Time of Surgery/Procedure: 12:00
--- NOTE | 2016-10-20 15:51 | RAD ---
HISTORY: s/p permacath exchange . Technique: Single view portable semi erect @ 15:05 COMPARISON: 10/16/2016. FINDINGS: LUNGS: No active pulmonary disease. PLEURA: No significant pleural effusion identified, no pneumothorax apparent. CARDIOVASCULAR: No radiographic findings to suggest acute or significant cardiovascular disease. PermCath in satisfactory position. Tip is at cavoatrial junction or perhaps in the right knee OSSEOUS STRUCTURES: No significant abnormalities. VISUALIZED UPPER ABDOMEN: Normal. OTHER FINDINGS: None. IMPRESSION: Satisfactory position of recently replaced PermCath. No pneumothorax or other adverse findings.
--- NOTE | 2016-10-20 17:08 | CP.PCM.PN ---
<Eduardo Meier - Last Filed: 10/20/16 17:14> Subjective - Date & Time of Evaluation Date of Evaluation: 10/20/16 Time of Evaluation: 15:34 - Subjective Subjective: Pt seen and examined. Pt reports that she has some pain in site of left AV fistula and right IJ permacath. Pt denies fever, chills, chest pain, shortness of breath, nausea, and vomiting. Objective - Vital Signs/Intake and Output Vital Signs (last 24 hours): Temp Pulse Resp BP Pulse Ox 97.4 F L 91 H 20 183/86 H 97 10/20/16 17:03 10/20/16 17:03 10/20/16 17:03 10/20/16 17:03 10/20/16 17:03 Intake and Output: 10/20/16 10/20/16 06:59 18:59 Intake Total 340 Balance 340 - Medications Medications: Current Medications Albuterol/Ipratropium (Duoneb 3 Mg/0.5 Mg (3 Ml) Ud) 3 ml INH RQ6 PRN PRN Reason: Shortness of Breath Last Admin: 10/18/16 08:01 Dose: 3 ml Amlodipine Besylate (Norvasc) 10 mg PO DAILY [facility] Last Admin: 10/20/16 15:00 Dose: Not Given Aspirin (Aspirin Chewable) 81 mg PO DAILY [facility] Last Admin: 10/20/16 15:00 Dose: Not Given Calcium Acetate (Phoslo) 667 mg PO TIDCC [facility] Last Admin: 10/20/16 15:00 Dose: Not Given Carvedilol (Coreg) 12.5 mg PO BID [facility] Last Admin: 10/19/16 18:06 Dose: 12.5 mg Escitalopram Oxalate (Lexapro) 10 mg PO DAILY [facility] Last Admin: 10/20/16 15:00 Dose: Not Given Famotidine (Pepcid) 20 mg PO DAILY [facility] Last Admin: 10/20/16 15:00 Dose: Not Given Ferric Sodium Gluconate Complex (Ferrlecit) 125 mg IVPB DAILY [facility] Stop: 10/24/16 10:16 Last Admin: 10/20/16 15:00 Dose: Not Given Furosemide (Lasix) 40 mg PO DAILY [facility] Last Admin: 10/20/16 15:00 Dose: Not Given Heparin Sodium (Porcine) (Heparin) 5,000 units SC Q8 [facility] Last Admin: 10/19/16 21:32 Dose: 5,000 units Piperacillin Sod/Tazobactam Sod (Zosyn 2.25 Gm Iv Premix) 50 mls @ 100 mls/hr IVPB Q8H [facility] Last Admin: 10/20/16 08:33 Dose: 100 mls/hr Insulin Human Regular (Novolin R) 0 unit SC ACHS [facility] PRN Reason: Protocol Last Admin: 10/20/16 15:00 Dose: Not Given Mirtazapine (Remeron) 7.5 mg PO [facility] Last Admin: 10/19/16 21:35 Dose: 7.5 mg Oxycodone/Acetaminophen (Percocet 5/325 Mg Tab) 1 tab PO Q4H PRN PRN Reason: Pain, moderate (4-7) Stop: 10/23/16 15:08 Rosuvastatin Calcium (Crestor) 5 mg PO [facility] Last Admin: 10/19/16 21:31 Dose: 5 mg - Labs Labs: 10/19/16 06:55 10/20/16 09:23 PT 11.4 SECONDS (9.7-12.2) 10/14/16 13:15 INR 1.0 10/14/16 13:15 APTT 37 SECONDS (21-34) H 10/14/16 13:15 - Constitutional Appears: No Acute Distress - Head Exam Head Exam: ATRAUMATIC, NORMOCEPHALIC - Eye Exam Eye Exam: EOMI, PERRL - ENT Exam ENT Exam: Mucous Membranes Moist. absent: Mucous Membranes Dry - Neck Exam Neck Exam: Full ROM. absent: Lymphadenopathy - Respiratory Exam Respiratory Exam: Clear to Ausculation Bilateral. absent: Rales, Rhonchi, Wheezes - Cardiovascular Exam Cardiovascular Exam: +S1, +S2. absent: Gallop, Rubs, Murmur - GI/Abdominal Exam GI & Abdominal Exam: Soft. absent: Guarding, Tenderness - Extremities Exam Extremities Exam: absent: Pedal Edema Additional comments: Left lateral leg venous ulcer - dressed with xeroform and tegaderm - Neurological Exam Neurological Exam: Alert, Awake, Oriented x3 - Psychiatric Exam Psychiatric exam: Normal Affect, Normal Mood - Skin Skin Exam: Normal Color, Warm Assessment and Plan - Assessment and Plan (Free Text) Assessment: Right Lateral Lower Extremity Ulcer WBC 12.3 Afebrile, nontachycardic Blood cultures - no growth after 3 days Zosyn 2.25 gm IVPB q8h Consult for wound care Tibia/Fibula X-ray: soft tissue changes consistent with extensive circumferential subcutaneous edema/lymphedema/cellulitis. Posterior mid calf soft lucency consistent with history of calf ulcer. Atherosclerotic vascular disease. (see full report) PT/OT Lower Extremity arterial doppler positive for mild femoropopliteal and moderate infrapopliteal occlusive disease in the right lower extremity, medial calcification and small vessel disease (please see full report) ESRD Day 0 s/p Left AV fistula placement and Right IJ catheter placement Dialysis schedule TTS Change to oral Lasix Est GFR 6 Renal ultrasound - medical renal disease, no evidence of nephrolithiasis or hydronephrosis (please see full report) Consulted nephrology, Dr. Salinas. Help appreciated. As per nephrology, pt needed emergent dialysis General Surgery, Dr. Martinez, consulted for stat dialysis catheter placement Pt made NPO and lovenox held Phoslo 667 mg po tidcc Ferrlecit 125 mg IV qd HTN: BP 183/86 Norvasc 10 mg po qd Coreg 12.5mg po bid Lasix 40 mg po qd Diabetes Mellitus Glucose 188 Hemoglobin a1c 6.8 RISS Accuchecks History of CVA Crestor 5 mg po HS ASA 81 mg po daily PT/OT Uncontrolled Asthma Duoneb RQ6 PRN for shortness of breath CXR: interstitial prominence, May reflect infection or edema. Probable small pleural effusion. Monitor Hyperlipidemia Crestor 5 mg po HS triglycerides 336 Cholesterol 290 LDL 126 Anemia of Chronic Disease hemoglobin 10.7 Iron 51 TIBC 189 % saturation 27 Ferritin 241 Ferrlecit daily Depression: Remeron 7.5 mg po hs Lexapro 10 mg po qd Prophylaxis: Lovenox 30 mg SC daily Pepcid 20 mg po daily SCD contraindicated due to right lower extremity ulcer and left AKA <Abel Flores Jr. - Last Filed: 11/02/16 13:43> Objective - Vital Signs/Intake and Output Vital Signs (last 24 hours): Temp Pulse Resp BP Pulse Ox 98.3 F 77 20 112/63 95 10/23/16 16:00 10/23/16 16:00 10/23/16 16:00 10/23/16 16:00 10/23/16 16:00 - Labs Labs: 10/21/16 16:17 10/21/16 16:17 PT 11.4 SECONDS (9.7-12.2) 10/14/16 13:15 INR 1.0 10/14/16 13:15 APTT 37 SECONDS (21-34) H 10/14/16 13:15 Attending/Attestation - Attestation I have personally seen and examined this patient.: Yes I have fully participated in the care of the patient.: Yes I have reviewed all pertinent clinical information, including history, physical exam and plan: Yes Notes (Text): 11/02/16 13:43 Agree with findings and plan
--- NOTE | 2016-10-20 17:59 | OP ---
PROCEDURE DATE: 10/20/2016 PREOPERATIVE DIAGNOSIS: Renal failure. POSTOPERATIVE DIAGNOSIS: Renal failure. PROCEDURE CARRIED OUT: Placement of Perm-A-Cath right jugular vein with C-arm fluoroscopy into a bra chiobasilic fistula, left elbow. SURGEON: Teddy Martinez Jr., MD PACKAGE DYER: Dr. Raymundo. ANESTHESIOLOGIST: Felipa Rodriguez CRNA. INDICATIONS: The patient is a middle-aged woman with renal insufficiency who requires permanent acce ss. She had a temporary catheter inserted last week on an urgent basis, now we are switching this to Perm-A-Cath. We are also creating fistula in her arm. OPERATIVE FINDINGS: At the initiation of the procedure, the old catheter was removed from the neck a nd discarded. A guidewire was inserted through this. Subsequently new, the area was prepped, draped under sterile conditions in the operating room, this was then changed. The catheter was tunneled on the chest wall. The special disk that was required was placed on this and the procedure went uneven tfully. This was checked for excellent return and worked quite well. PROCEDURE: We then turned our attention to the left arm and marked on the skin location of the brach ial artery and the basilic vein. The cephalic vein was inadequate in size and there was no adequate vein at the wrist. After completing this, we then carried out a spatulated end-to-side anastomosis u sing loupe magnification and heparin anticoagulation. There was excellent flow through the fistula a nd there was a good pulse at the wrist. Wounds were then closed with Monocryl and Vicryl sutures and nylon sutures on the skin. It should be noted the patient has heavily atherosclerotic vessels despi te her young age, etc. OPERATION CARRIED OUT: Perm-A-Cath, right jugular vein with C-arm fluoroscopy into AV fistula, left elbow brachiobasilic. This most likely would require mobilization in the future. Teddy Martinez Jr., MD cc: 56 TT: 10/20/2016 17:58:21 jn
[2016-10-20] MEDS: Oxycodone/Acetaminophen 5/325 mg Tab PO PRN (19:29)
[2016-10-21] MEDS: Piperacill/Tazo 2.25gm in Dex 50 ML IVPB SCH ×3 (01:29→16:00)
[2016-10-21] MEDS: Lactated Ringer's 1,000 ML IV SCH (07:06)
[2016-10-21] MEDS: (Novolin R) Insulin Human Regular 100 units/ml vial SC SCH ×4 (08:16→22:16)
[2016-10-21] MEDS: Ferric Sodium Gluconat Complex 62.5 mg/5 ml Vial IVPB SCH (09:39)
--- NOTE | 2016-10-21 09:40 | CP.PCM.PN ---
Subjective - Date & Time of Evaluation Date of Evaluation: 10/21/16 Time of Evaluation: 07:00 - Subjective Subjective: Pt S&E POD1. Nursing reports 1 episode of emesis overnight. Pt states she has some pain at the permacath and fistula sites, but that the pain is well controlled w/ medication. She has had no BM or flatus since the surgery and has not been hungry. Pt denies nausea, fever, chills. Dressing for permacath was changed and site was cleaned. Objective - Vital Signs/Intake and Output Vital Signs (last 24 hours): Temp Pulse Resp BP Pulse Ox 97.6 F 84 18 127/82 97 10/21/16 07:35 10/21/16 07:35 10/21/16 07:35 10/21/16 07:35 10/21/16 07:35 - Medications Medications: Current Medications Albuterol/Ipratropium (Duoneb 3 Mg/0.5 Mg (3 Ml) Ud) 3 ml INH RQ6 PRN PRN Reason: Shortness of Breath Last Admin: 10/18/16 08:01 Dose: 3 ml Amlodipine Besylate (Norvasc) 10 mg PO DAILY [facility] Last Admin: 10/20/16 15:00 Dose: Not Given Aspirin (Aspirin Chewable) 81 mg PO DAILY [facility] Last Admin: 10/20/16 15:00 Dose: Not Given Calcium Acetate (Phoslo) 667 mg PO TIDCC [facility] Last Admin: 10/21/16 08:16 Dose: 667 mg Carvedilol (Coreg) 12.5 mg PO BID [facility] Last Admin: 10/20/16 17:34 Dose: 12.5 mg Escitalopram Oxalate (Lexapro) 10 mg PO DAILY [facility] Last Admin: 10/20/16 15:00 Dose: Not Given Famotidine (Pepcid) 20 mg PO DAILY [facility] Last Admin: 10/20/16 15:00 Dose: Not Given Ferric Sodium Gluconate Complex (Ferrlecit) 125 mg IVPB DAILY [facility] Stop: 10/24/16 10:16 Last Admin: 10/20/16 15:00 Dose: Not Given Furosemide (Lasix) 40 mg PO DAILY [facility] Last Admin: 10/20/16 15:00 Dose: Not Given Heparin Sodium (Porcine) (Heparin) 5,000 units SC Q8 [facility] Last Admin: 10/19/16 21:32 Dose: 5,000 units Piperacillin Sod/Tazobactam Sod (Zosyn 2.25 Gm Iv Premix) 50 mls @ 100 mls/hr IVPB Q8H [facility] Last Admin: 10/21/16 08:16 Dose: 100 mls/hr Lactated Ringer's (Lactated Ringer's) 1,000 mls @ 50 mls/hr IV .Q20H [facility] Last Admin: 10/21/16 07:06 Dose: 50 mls/hr Insulin Human Regular (Novolin R) 0 unit SC ACHS [facility] PRN Reason: Protocol Last Admin: 10/21/16 08:16 Dose: 4 unit Mirtazapine (Remeron) 7.5 mg PO [facility] Last Admin: 10/20/16 21:19 Dose: 7.5 mg Oxycodone/Acetaminophen (Percocet 5/325 Mg Tab) 1 tab PO Q4H PRN PRN Reason: Pain, moderate (4-7) Stop: 10/23/16 15:08 Last Admin: 10/20/16 19:29 Dose: 1 tab Rosuvastatin Calcium (Crestor) 5 mg PO [facility] Last Admin: 10/20/16 21:18 Dose: 5 mg - Labs Labs: 10/19/16 06:55 10/20/16 09:23 PT 11.4 SECONDS (9.7-12.2) 10/14/16 13:15 INR 1.0 10/14/16 13:15 APTT 37 SECONDS (21-34) H 10/14/16 13:15 - Constitutional Appears: Non-toxic, No Acute Distress - Head Exam Head Exam: ATRAUMATIC, NORMOCEPHALIC - Eye Exam Eye Exam: EOMI. absent: Scleral icterus - ENT Exam ENT Exam: Mucous Membranes Moist - Respiratory Exam Respiratory Exam: NORMAL BREATHING PATTERN. absent: Respiratory Distress - Cardiovascular Exam Cardiovascular Exam: absent: Bradycardia, JVD - GI/Abdominal Exam GI & Abdominal Exam: Soft. absent: Distended, Firm, Rigid, Tenderness - Extremities Exam Extremities Exam: Tenderness Additional comments: fistula site on L arm is TTP. Dressing is clean and dry. Wound on R leg is ulcerated and non-draining. - Neurological Exam Neurological Exam: Alert, Awake, Oriented x3 - Psychiatric Exam Psychiatric exam: Normal Affect, Normal Mood - Skin Skin Exam: Dry, Warm Assessment and Plan - Assessment and Plan (Free Text) Assessment: 61F s/p AV fistula and permacath relocation POD#1. - monitor H&H - change dressings as needed - continue pain management - CTA for non-healing wound on R leg - Further recs per Dr. Juan Fajardo PGY1
--- NOTE | 2016-10-21 11:56 | CP.PCM.PN ---
Subjective - Date & Time of Evaluation Date of Evaluation: 10/21/16 Time of Evaluation: 11:53 - Subjective Subjective: s/p av fistula- has bruit Alert - no new complaints Not dyspneic, no CPs, n,v, fevers Objective - Vital Signs/Intake and Output Vital Signs (last 24 hours): Temp Pulse Resp BP Pulse Ox 97.6 F 94 H 18 130/74 97 10/21/16 07:35 10/21/16 09:37 10/21/16 07:35 10/21/16 09:40 10/21/16 07:35 - Medications Medications: Current Medications Albuterol/Ipratropium (Duoneb 3 Mg/0.5 Mg (3 Ml) Ud) 3 ml INH RQ6 PRN PRN Reason: Shortness of Breath Last Admin: 10/18/16 08:01 Dose: 3 ml Amlodipine Besylate (Norvasc) 10 mg PO DAILY [facility] Last Admin: 10/20/16 15:00 Dose: Not Given Aspirin (Aspirin Chewable) 81 mg PO DAILY [facility] Last Admin: 10/21/16 09:41 Dose: 81 mg Calcium Acetate (Phoslo) 667 mg PO TIDCC [facility] Last Admin: 10/21/16 08:16 Dose: 667 mg Carvedilol (Coreg) 12.5 mg PO BID [facility] Last Admin: 10/20/16 17:34 Dose: 12.5 mg Escitalopram Oxalate (Lexapro) 10 mg PO DAILY [facility] Last Admin: 10/21/16 09:40 Dose: 10 mg Famotidine (Pepcid) 20 mg PO DAILY [facility] Last Admin: 10/21/16 09:40 Dose: 20 mg Ferric Sodium Gluconate Complex (Ferrlecit) 125 mg IVPB DAILY [facility] Stop: 10/24/16 10:16 Last Admin: 10/21/16 09:39 Dose: 125 mg Furosemide (Lasix) 40 mg PO DAILY [facility] Last Admin: 10/21/16 09:40 Dose: 40 mg Heparin Sodium (Porcine) (Heparin) 5,000 units SC Q8 [facility] Last Admin: 10/19/16 21:32 Dose: 5,000 units Piperacillin Sod/Tazobactam Sod (Zosyn 2.25 Gm Iv Premix) 50 mls @ 100 mls/hr IVPB Q8H [facility] Last Admin: 10/21/16 08:16 Dose: 100 mls/hr Lactated Ringer's (Lactated Ringer's) 1,000 mls @ 50 mls/hr IV .Q20H [facility] Last Admin: 10/21/16 07:06 Dose: 50 mls/hr Insulin Human Regular (Novolin R) 0 unit SC ACHS [facility] PRN Reason: Protocol Last Admin: 10/21/16 08:16 Dose: 4 unit Mirtazapine (Remeron) 7.5 mg PO HS [facility] Last Admin: 10/20/16 21:19 Dose: 7.5 mg Oxycodone/Acetaminophen (Percocet 5/325 Mg Tab) 1 tab PO Q4H PRN PRN Reason: Pain, moderate (4-7) Stop: 10/23/16 15:08 Last Admin: 10/20/16 19:29 Dose: 1 tab Rosuvastatin Calcium (Crestor) 5 mg PO [facility] Last Admin: 10/20/16 21:18 Dose: 5 mg - Labs Labs: 10/19/16 06:55 10/20/16 09:23 PT 11.4 SECONDS (9.7-12.2) 10/14/16 13:15 INR 1.0 10/14/16 13:15 APTT 37 SECONDS (21-34) H 10/14/16 13:15 - Constitutional Appears: No Acute Distress, Chronically Ill - Head Exam Head Exam: ATRAUMATIC, NORMAL INSPECTION - Eye Exam Eye Exam: EOMI, Normal appearance - Neck Exam Neck Exam: Normal Inspection. absent: Tenderness - Respiratory Exam Respiratory Exam: Clear to Ausculation Bilateral, NORMAL BREATHING PATTERN - Cardiovascular Exam Cardiovascular Exam: REGULAR RHYTHM, +S1 - GI/Abdominal Exam GI & Abdominal Exam: Soft. absent: Tenderness - Extremities Exam Extremities Exam: Pedal Edema. absent: Tenderness - Neurological Exam Neurological Exam: Alert, Motor Sensory Deficit - Skin Skin Exam: Dry, Warm Assessment and Plan (1) Diabetic ulcer of lower leg Status: Acute (2) Acute renal failure (ARF) Status: Acute (3) HTN (hypertension) Status: Chronic (4) Type 2 diabetes mellitus with diabetic nephropathy Status: Acute (5) CVA (cerebrovascular accident) Status: Acute (6) ESRD (end stage renal disease) Status: Acute - Assessment and Plan (Free Text) Assessment: Dialysis TTS Await maturation av access Needs outpt dialysis placement
[2016-10-21] MEDS ORDERED: Iodixanol 320 mg/ml 150 ml Bottle IV ONE (13:31)
--- NOTE | 2016-10-21 14:11 | CP.PCM.PN ---
<Eduardo Meier - Last Filed: 10/21/16 14:07> Subjective - Date & Time of Evaluation Date of Evaluation: 10/21/16 Time of Evaluation: 07:14 - Subjective Subjective: Pt seen and examined. Pt reports that she has slight pain at site of left AV fistula and right IJ permacath. Pt denies fever, chills, chest pain, shortness of breath, nausea, and vomiting. Objective - Vital Signs/Intake and Output Vital Signs (last 24 hours): Temp Pulse Resp BP Pulse Ox 97.6 F 94 H 18 130/74 97 10/21/16 07:35 10/21/16 09:37 10/21/16 07:35 10/21/16 09:40 10/21/16 07:35 - Medications Medications: Current Medications Albuterol/Ipratropium (Duoneb 3 Mg/0.5 Mg (3 Ml) Ud) 3 ml INH RQ6 PRN PRN Reason: Shortness of Breath Last Admin: 10/18/16 08:01 Dose: 3 ml Amlodipine Besylate (Norvasc) 10 mg PO DAILY [facility] Last Admin: 10/20/16 15:00 Dose: Not Given Aspirin (Aspirin Chewable) 81 mg PO DAILY [facility] Last Admin: 10/21/16 09:41 Dose: 81 mg Calcium Acetate (Phoslo) 667 mg PO TIDCC [facility] Last Admin: 10/21/16 13:08 Dose: 667 mg Carvedilol (Coreg) 12.5 mg PO BID [facility] Last Admin: 10/20/16 17:34 Dose: 12.5 mg Escitalopram Oxalate (Lexapro) 10 mg PO DAILY [facility] Last Admin: 10/21/16 09:40 Dose: 10 mg Famotidine (Pepcid) 20 mg PO DAILY [facility] Last Admin: 10/21/16 09:40 Dose: 20 mg Ferric Sodium Gluconate Complex (Ferrlecit) 125 mg IVPB DAILY [facility] Stop: 10/24/16 10:16 Last Admin: 10/21/16 09:39 Dose: 125 mg Furosemide (Lasix) 40 mg PO DAILY [facility] Last Admin: 10/21/16 09:40 Dose: 40 mg Heparin Sodium (Porcine) (Heparin) 5,000 units SC Q8 [facility] Last Admin: 10/19/16 21:32 Dose: 5,000 units Piperacillin Sod/Tazobactam Sod (Zosyn 2.25 Gm Iv Premix) 50 mls @ 100 mls/hr IVPB Q8H [facility] Last Admin: 10/21/16 08:16 Dose: 100 mls/hr Lactated Ringer's (Lactated Ringer's) 1,000 mls @ 50 mls/hr IV .Q20H [facility] Last Admin: 10/21/16 07:06 Dose: 50 mls/hr Insulin Human Regular (Novolin R) 0 unit SC ACHS [facility] PRN Reason: Protocol Last Admin: 10/21/16 12:46 Dose: 4 unit Mirtazapine (Remeron) 7.5 mg PO [facility] Last Admin: 10/20/16 21:19 Dose: 7.5 mg Oxycodone/Acetaminophen (Percocet 5/325 Mg Tab) 1 tab PO Q4H PRN PRN Reason: Pain, moderate (4-7) Stop: 10/23/16 15:08 Last Admin: 10/20/16 19:29 Dose: 1 tab Rosuvastatin Calcium (Crestor) 5 mg PO [facility] Last Admin: 10/20/16 21:18 Dose: 5 mg - Labs Labs: 10/19/16 06:55 10/20/16 09:23 PT 11.4 SECONDS (9.7-12.2) 10/14/16 13:15 INR 1.0 10/14/16 13:15 APTT 37 SECONDS (21-34) H 10/14/16 13:15 - Constitutional Appears: No Acute Distress - Head Exam Head Exam: ATRAUMATIC, NORMOCEPHALIC - Eye Exam Eye Exam: EOMI, PERRL - ENT Exam ENT Exam: Mucous Membranes Moist. absent: Mucous Membranes Dry - Neck Exam Neck Exam: Full ROM. absent: Lymphadenopathy - Respiratory Exam Respiratory Exam: Clear to Ausculation Bilateral. absent: Rales, Rhonchi, Wheezes - Cardiovascular Exam Cardiovascular Exam: +S1, +S2. absent: Gallop, Rubs - GI/Abdominal Exam GI & Abdominal Exam: Soft. absent: Tenderness - Extremities Exam Extremities Exam: absent: Pedal Edema Additional comments: Left arm AV fistula placement, left leg AKA - Neurological Exam Neurological Exam: Alert, Awake, Oriented x3 - Psychiatric Exam Psychiatric exam: Normal Affect, Normal Mood - Skin Skin Exam: Normal Color, Warm Assessment and Plan - Assessment and Plan (Free Text) Assessment: Right Lateral Lower Extremity Ulcer Labs not attained because pt refusing blood work yesterday and today Afebrile, HR 94 Blood cultures - no growth after 5 days Zosyn 2.25 gm IVPB q8h Tibia/Fibula X-ray: soft tissue changes consistent with extensive circumferential subcutaneous edema/lymphedema/cellulitis. Posterior mid calf soft lucency consistent with history of calf ulcer. Atherosclerotic vascular disease. (see full report) PT/OT Lower Extremity arterial doppler positive for mild femoropopliteal and moderate infrapopliteal occlusive disease in the right lower extremity, medial calcification and small vessel disease (please see full report) Angiography and abdominal ileofemoral runoff pending ESRD Day 1 s/p Left AV fistula placement and Right IJ catheter placement by Dr. Martinez Dialysis schedule TTS Est GFR 6 Renal ultrasound - medical renal disease, no evidence of nephrolithiasis or hydronephrosis (please see full report) Consulted nephrology, Dr. Salinas. Help appreciated. Phoslo 667 mg po tidcc Ferrlecit 125 mg IV qd HTN: BP 130/74 Norvasc 10 mg po qd Coreg 12.5mg po bid Lasix 40 mg po qd Diabetes Mellitus Glucose 188 Hemoglobin a1c 6.8 RISS Accuchecks History of CVA Crestor 5 mg po HS ASA 81 mg po daily PT/OT Uncontrolled Asthma Duoneb RQ6 PRN for shortness of breath CXR: interstitial prominence, May reflect infection or edema. Probable small pleural effusion. Monitor Hyperlipidemia Crestor 5 mg po HS triglycerides 336 Cholesterol 290 LDL 126 Anemia of Chronic Disease hemoglobin 10.1 Iron 51 TIBC 189 % saturation 27 Ferritin 241 Ferrlecit daily Depression: Remeron 7.5 mg po hs Lexapro 10 mg po qd Prophylaxis: Lovenox 30 mg SC daily Pepcid 20 mg po daily SCD contraindicated due to right lower extremity ulcer and left AKA <Abel Flores Jr. - Last Filed: 11/02/16 13:45> Objective - Vital Signs/Intake and Output Vital Signs (last 24 hours): Temp Pulse Resp BP Pulse Ox 98.3 F 77 20 112/63 95 10/23/16 16:00 10/23/16 16:00 10/23/16 16:00 10/23/16 16:00 10/23/16 16:00 - Labs Labs: 10/21/16 16:17 10/21/16 16:17 PT 11.4 SECONDS (9.7-12.2) 10/14/16 13:15 INR 1.0 10/14/16 13:15 APTT 37 SECONDS (21-34) H 10/14/16 13:15 Attending/Attestation - Attestation I have personally seen and examined this patient.: Yes I have fully participated in the care of the patient.: Yes I have reviewed all pertinent clinical information, including history, physical exam and plan: Yes Notes (Text): 11/02/16 13:45 Agree with findings and plan
[2016-10-21 16:25] LABS: BASO # 0.1 K/uL (0.0-0.2); BASO % 0.7 % (0.0-2.0); EOS # 0.4 K/uL (0.0-0.7); HEMATOCRIT 29.3 % (34.0-47.0); LYMPH # 1.7 K/uL (1.0-4.3); LYMPH % 13.7 % (20.0-40.0); MEAN CELL VOLUME 86.8 fL (81.0-99.0); MEAN CORPUSCULAR HGB CONC 32.3 g/dL (33.0-37.0); MEAN PLATELET VOLUME 9.7 fL (7.2-11.7); MONO % 8.1 % (0.0-10.0); RED CELL DISTRIBUTION WIDTH 14.1 % (11.5-14.5); WHITE BLOOD COUNT 12.5 K/uL (4.8-10.8)
[2016-10-21 16:43] LABS: ALB/GLOB RATIO 0.9 (1.0-2.1); BILIRUBIN,TOTAL 0.1 mg/dL (0.2-1.3); PHOSPHOROUS 5.8 mg/dL (2.5-4.5); TOTAL PROTEIN 5.6 g/dL (6.3-8.3)
[2016-10-21 16:44] LABS: CALCIUM 6.6 mg/dl (8.6-10.4)
[2016-10-21 16:45] LABS: POTASSIUM 3.7 mmol/L (3.6-5.2)
--- NOTE | 2016-10-21 18:08 | CP.PCM.DIS ---
Provider - Provider Date of Admission: 10/14/16 14:24 Attending physician: Abel Flores Jr, MD Hospital Course - Lab Results Lab Results: Micro Results 10/14/16 14:26 Urine,Clean Catch Urine Culture - Final 10-50,000 CFU/ML. MULTIPLE SPECIES. PROBABLE CONTAMINATION. Most Recent Lab Values WBC 12.5 K/uL (4.8-10.8) H 10/21/16 16:17 RBC 3.38 Mil/uL (3.80-5.20) L 10/21/16 16:17 Hgb 9.5 g/dL (11.0-16.0) L 10/21/16 16:17 Hct 29.3 % (34.0-47.0) L 10/21/16 16:17 MCV 86.8 fL (81.0-99.0) 10/21/16 16:17 MCH 28.0 pg (27.0-31.0) 10/21/16 16:17 MCHC 32.3 g/dL (33.0-37.0) L 10/21/16 16:17 RDW 14.1 % (11.5-14.5) 10/21/16 16:17 Plt Count 212 K/uL (130-400) 10/21/16 16:17 MPV 9.7 fL (7.2-11.7) 10/21/16 16:17 Neut % (Auto) 74.5 % (50.0-75.0) 10/21/16 16:17 Lymph % (Auto) 13.7 % (20.0-40.0) L 10/21/16 16:17 [place] % (Auto) 8.1 % (0.0-10.0) 10/21/16 16:17 Eos % (Auto) 3.0 % (0.0-4.0) 10/21/16 16:17 Baso % (Auto) 0.7 % (0.0-2.0) 10/21/16 16:17 Neut # 9.3 K/uL (1.8-7.0) H 10/21/16 16:17 Lymph # 1.7 K/uL (1.0-4.3) 10/21/16 16:17 [place] # 1.0 K/uL (0.0-0.8) H 10/21/16 16:17 Eos # 0.4 K/uL (0.0-0.7) 10/21/16 16:17 Baso # 0.1 K/uL (0.0-0.2) 10/21/16 16:17 ESR 110 mm/hr (0-20) H 10/14/16 12:09 Retic Count 1.4 % (0.5-1.5) 10/14/16 19:23 PT 11.4 SECONDS (9.7-12.2) 10/14/16 13:15 INR 1.0 10/14/16 13:15 APTT 37 SECONDS (21-34) H 10/14/16 13:15 Sodium 134 mmol/L (132-148) 10/21/16 16:17 Potassium 3.7 mmol/L (3.6-5.2) 10/21/16 16:17 Chloride 98 mmol/L (98-107) 10/21/16 16:17 Carbon Dioxide 24 mmol/L (22-30) 10/21/16 16:17 Anion Gap 16 (10-20) 10/21/16 16:17 BUN 36 mg/dL (7-17) H 10/21/16 16:17 Creatinine 6.7 MG/DL (0.7-1.2) H 10/21/16 16:17 Est GFR ( Amer) 8 10/21/16 16:17 Est GFR (Non-Af Amer) 6 10/21/16 16:17 POC Glucose (mg/dL) 154 mg/dL (65-110) H 10/21/16 16:37 Random Glucose 167 mg/dL (65-105) H 10/21/16 16:17 Hemoglobin A1c 6.8 % (4.2-6.5) H 10/15/16 07:15 Calcium 6.6 mg/dl (8.6-10.4) L 10/21/16 16:17 Phosphorus 5.8 mg/dL (2.5-4.5) H 10/21/16 16:17 Magnesium 2.0 mg/dL (1.6-2.3) 10/21/16 16:17 Iron 51 ug/dL (37-170) 10/14/16 19:23 TIBC 189 ug/dL (250-450) L 10/14/16 19:23 % Saturation 19 (20-55) L 10/16/16 08:02 Ferritin 232.0 ng/mL 10/16/16 08:02 Total Bilirubin 0.1 mg/dL (0.2-1.3) L 10/21/16 16:17 AST 26 U/L (14-36) 10/21/16 16:17 ALT 8 U/L (9-52) L D 10/21/16 16:17 Alkaline Phosphatase 79 U/L (38-126) 10/21/16 16:17 C-React Prot High Sens 4.38 mg/L (1.00-3.00) H 10/14/16 12:09 Total Protein 5.6 g/dL (6.3-8.3) L 10/21/16 16:17 Albumin 2.7 g/dL (3.5-5.0) L 10/21/16 16:17 Globulin 2.9 gm/dL (2.2-3.9) 10/21/16 16:17 Albumin/Globulin Ratio 0.9 (1.0-2.1) L 10/21/16 16:17 Triglycerides 336 mg/dL (0-149) H 10/15/16 07:15 Cholesterol 290 mg/dL (0-199) H 10/15/16 07:15 LDL Cholesterol Direct 126 mg/dL (0-129) 10/15/16 07:15 HDL Cholesterol 42 mg/dL (30-70) 10/15/16 07:15 Calcium (PTH Intact) 6.6 mg/dL (8.6-10.4) L 10/16/16 09:13 PTH w/Ion &Tot Calcium 451 pg/mL (14-64) H 10/16/16 09:13 Urine Color Straw (YELLOW) 10/14/16 14:20 Urine Clarity Clear (Clear) 10/14/16 14:20 Urine pH 6.0 (5.0-8.0) 10/14/16 14:20 Ur Specific [place] 1.008 (1.003-1.030) 10/14/16 14:20 Urine Protein 3+ mg/dL (NEGATIVE) H 10/14/16 14:20 Urine Glucose (UA) 3+ mg/dL (Normal) H 10/14/16 14:20 Urine Ketones Negative mg/dL (NEGATIVE) 10/14/16 14:20 Urine Blood Negative (NEGATIVE) 10/14/16 14:20 Urine Nitrate Negative (NEGATIVE) 10/14/16 14:20 Urine Bilirubin Negative (NEGATIVE) 10/14/16 14:20 Urine Urobilinogen Normal mg/dL (0.2-1.0) 10/14/16 14:20 Ur Leukocyte Esterase Neg Gema/uL (Negative) 10/14/16 14:20 Urine WBC (Auto) 4 /hpf (0-5) 10/14/16 14:20 Urine RBC (Auto) 4 /hpf (0-3) H 10/14/16 14:20 Ur Squamous Epith Cells 5 /hpf (0-5) 10/14/16 14:20 Hep Bs Antigen Negative (NEGATIVE) 10/16/16 08:02 Hep Bs Antibody Negative (NEGATIVE) 10/16/16 08:55 Hep B Core IgM Ab Negative (NEGATIVE) 10/16/16 08:02 Hepatitis C Antibody Negative (NEGATIVE) 10/16/16 08:02 Blood Type O POSITIVE 10/14/16 12:09 Antibody Screen Negative 10/14/16 12:09 Discharge Exam - Head Exam Head Exam: ATRAUMATIC, NORMOCEPHALIC Discharge Plan - Follow Up Plan Condition: GUARDED Disposition: HOME/ ROUTINE
[2016-10-22] MEDS: Piperacill/Tazo 2.25gm in Dex 50 ML IVPB SCH ×4 (00:30→19:17)
[2016-10-22] MEDS: Lactated Ringer's 1,000 ML IV SCH (02:30)
--- NOTE | 2016-10-22 08:16 | CP.PCM.PN ---
Subjective - Date & Time of Evaluation Date of Evaluation: 10/22/16 Time of Evaluation: 08:16 - Subjective Subjective: significant pvd right leg will need tx will discuss with patient and schedule opd Objective - Vital Signs/Intake and Output Vital Signs (last 24 hours): Temp Pulse Resp BP Pulse Ox 98.6 F 81 20 147/78 94 L 10/22/16 05:14 10/22/16 05:14 10/22/16 05:14 10/22/16 05:14 10/22/16 05:14 Intake and Output: 10/22/16 10/22/16 06:59 18:59 Intake Total 400 Output Total 200 Balance 200 - Medications Medications: Current Medications Albuterol/Ipratropium (Duoneb 3 Mg/0.5 Mg (3 Ml) Ud) 3 ml INH RQ6 PRN PRN Reason: Shortness of Breath Last Admin: 10/18/16 08:01 Dose: 3 ml Amlodipine Besylate (Norvasc) 10 mg PO DAILY [facility] Last Admin: 10/21/16 15:02 Dose: Not Given Aspirin (Aspirin Chewable) 81 mg PO DAILY [facility] Last Admin: 10/21/16 09:41 Dose: 81 mg Calcium Acetate (Phoslo) 667 mg PO TIDCC [facility] Last Admin: 10/21/16 17:00 Dose: Not Given Carvedilol (Coreg) 12.5 mg PO BID [facility] Last Admin: 10/21/16 21:47 Dose: 12.5 mg Escitalopram Oxalate (Lexapro) 10 mg PO DAILY [facility] Last Admin: 10/21/16 09:40 Dose: 10 mg Famotidine (Pepcid) 20 mg PO DAILY [facility] Last Admin: 10/21/16 09:40 Dose: 20 mg Ferric Sodium Gluconate Complex (Ferrlecit) 125 mg IVPB DAILY [facility] Stop: 10/24/16 10:16 Last Admin: 10/21/16 09:39 Dose: 125 mg Furosemide (Lasix) 40 mg PO DAILY [facility] Last Admin: 10/21/16 09:40 Dose: 40 mg Piperacillin Sod/Tazobactam Sod (Zosyn 2.25 Gm Iv Premix) 50 mls @ 100 mls/hr IVPB Q8H [facility] Last Admin: 10/22/16 00:30 Dose: 100 mls/hr Lactated Ringer's (Lactated Ringer's) 1,000 mls @ 50 mls/hr IV .Q20H [facility] Last Admin: 10/22/16 02:30 Dose: Not Given Insulin Human Regular (Novolin R) 0 unit SC ACHS [facility] PRN Reason: Protocol Last Admin: 10/21/16 22:16 Dose: Not Given Mirtazapine (Remeron) 7.5 mg PO HS [facility] Last Admin: 10/21/16 21:51 Dose: 7.5 mg Oxycodone/Acetaminophen (Percocet 5/325 Mg Tab) 1 tab PO Q4H PRN PRN Reason: Pain, moderate (4-7) Stop: 10/23/16 15:08 Last Admin: 10/20/16 19:29 Dose: 1 tab Rosuvastatin Calcium (Crestor) 5 mg PO HS [facility] Last Admin: 10/21/16 21:47 Dose: 5 mg - Labs Labs: 10/21/16 16:17 10/21/16 16:17 PT 11.4 SECONDS (9.7-12.2) 10/14/16 13:15 INR 1.0 10/14/16 13:15 APTT 37 SECONDS (21-34) H 10/14/16 13:15
[2016-10-22] MEDS: (Novolin R) Insulin Human Regular 100 units/ml vial SC SCH ×4 (08:48→21:16)
[2016-10-22] MEDS: Ferric Sodium Gluconat Complex 62.5 mg/5 ml Vial IVPB SCH (10:51)
--- NOTE | 2016-10-22 12:14 | CT ---
PROCEDURE: CT Angiography Abdomen, Pelvis and Lower Extremity with Contrast HISTORY: PAD; nonhealing wound, left above knee amputation COMPARISON: None. TECHNIQUE: Technique: CT angiography of the abdomen, pelvis and bilateral lower extremities performed in the arterial phase of enhancement. Coronal and sagittal reformats, and well as rotating MIP images of the vessels generated at the workstation. Intravenous contrast dose: 150 milliliters Visipaque 320 Radiation dose: Total exam DLP = 3148.49 MGy-cm. This CT exam was performed using one or more of the following dose reduction techniques: Automated exposure control, adjustment of the mA and/or kV according to patient size, and/or use of iterative reconstruction technique. FINDINGS: CT ANGIOGRAPHY: ABDOMINAL AORTA:: Mild calcified abdominal aorta without aneurysm or stenosis. MAJOR AORTIC BRANCHES: Celiac [place]: Unremarkable. Superior mesenteric artery: Unremarkable. Inferior mesenteric artery: Unremarkable. Renal arteries: Mild stenosis of both right and left renal arteries. PELVIC ARTERIES: Right Common Iliac: Unremarkable. Right External Iliac: Unremarkable. Right Internal Iliac: Unremarkable. Left Common Iliac: Unremarkable. Left External Iliac: Unremarkable. Left Internal Iliac: Unremarkable. RIGHT LOWER EXTREMITY ARTERIES: Right Common Femoral: Mild stenosis Right Superficial Femoral: Moderate plaque throughout the SFA with an area of severe stenosis of the distal SFA. Right Profunda Femoris: Unremarkable. Right Popliteal:O segment severe stenosis of the proximal popliteal artery Right Anterior Tibial: Heavily calcified which limits its evaluation. Right Tibioperoneal Trunk: Unremarkable. Right Posterior Tibial: Early calcified but appears patent. Right Peroneal: Of the calcified which limits its evaluation. Right dorsalis pedis : Unremarkable. LEFT LOWER EXTREMITY ARTERIES: Left Common Femoral: Unremarkable. Left Superficial Femoral: Occluded SFA stent. Left Profunda Femoris: Unremarkable. Above knee amputation Left Anterior Tibial: Unremarkable. Left Tibioperoneal Trunk: Unremarkable. Left Posterior Tibial: Unremarkable. Left Peronea: Unremarkable. Left Dorsalis pedis: Unremarkable. NON-ANGIOGRAPHIC ASPECT OF THE EXAM: LOWER THORAX: Unremarkable. LIVER: Unremarkable. No gross lesion or ductal dilatation. GALLBLADDER AND BILE DUCTS: Unremarkable. PANCREAS: Unremarkable. No gross lesion or ductal dilatation. SPLEEN: Unremarkable. ADRENALS: Unremarkable. No mass. KIDNEYS AND URETERS: Unremarkable. No hydronephrosis. No solid mass. STOMACH AND BOWEL: Unremarkable. No obstruction. No gross mural thickening. APPENDIX: Normal appendix. PERITONEUM: Unremarkable. No free fluid. No free air. LYMPH NODES: Unremarkable. No enlarged lymph nodes. BLADDER: Unremarkable. REPRODUCTIVE: Unremarkable. BONES: No acute fracture. OTHER FINDINGS: None. IMPRESSION:
--- NOTE | 2016-10-22 13:11 | CP.PCM.PN ---
Subjective - Date & Time of Evaluation Date of Evaluation: 10/22/16 Time of Evaluation: 13:08 - Subjective Subjective: Unable to be discharged today Has had low grade temps; sl discharge around AV fistula +bruit over fistula On IV ABs Will need dialysis today- since likely discharge in AM Phos increased- increase phoslo dose Start EPO for anemia Objective - Vital Signs/Intake and Output Vital Signs (last 24 hours): Temp Pulse Resp BP Pulse Ox 99.8 F H 97 H 18 110/69 95 10/22/16 07:15 10/22/16 10:50 10/22/16 07:15 10/22/16 10:53 10/22/16 07:15 Intake and Output: 10/22/16 10/22/16 06:59 18:59 Intake Total 400 Output Total 200 Balance 200 - Medications Medications: Current Medications Albuterol/Ipratropium (Duoneb 3 Mg/0.5 Mg (3 Ml) Ud) 3 ml INH RQ6 PRN PRN Reason: Shortness of Breath Last Admin: 10/18/16 08:01 Dose: 3 ml Amlodipine Besylate (Norvasc) 10 mg PO DAILY [facility] Last Admin: 10/21/16 15:02 Dose: Not Given Aspirin (Aspirin Chewable) 81 mg PO DAILY [facility] Last Admin: 10/22/16 10:53 Dose: 81 mg Calcium Acetate (Phoslo) 1,334 mg PO TIDCC [facility] Carvedilol (Coreg) 12.5 mg PO BID [facility] Last Admin: 10/21/16 21:47 Dose: 12.5 mg Epoetin Steven (Procrit) 10,000 unit IV MWF [facility] Escitalopram Oxalate (Lexapro) 10 mg PO DAILY [facility] Last Admin: 10/22/16 10:53 Dose: 10 mg Famotidine (Pepcid) 20 mg PO DAILY [facility] Last Admin: 10/22/16 10:53 Dose: 20 mg Ferric Sodium Gluconate Complex (Ferrlecit) 125 mg IVPB DAILY [facility] Stop: 10/24/16 10:16 Last Admin: 10/22/16 10:51 Dose: 125 mg Furosemide (Lasix) 40 mg PO DAILY [facility] Last Admin: 10/22/16 10:53 Dose: 40 mg Piperacillin Sod/Tazobactam Sod (Zosyn 2.25 Gm Iv Premix) 50 mls @ 100 mls/hr IVPB Q8H [facility] Last Admin: 10/22/16 08:49 Dose: 100 mls/hr Insulin Human Regular (Novolin R) 0 unit SC ACHS [facility] PRN Reason: Protocol Last Admin: 10/22/16 08:48 Dose: 2 unit Mirtazapine (Remeron) 7.5 mg PO HS [facility] Last Admin: 10/21/16 21:51 Dose: 7.5 mg Oxycodone/Acetaminophen (Percocet 5/325 Mg Tab) 1 tab PO Q4H PRN PRN Reason: Pain, moderate (4-7) Stop: 10/23/16 15:08 Last Admin: 10/20/16 19:29 Dose: 1 tab Rosuvastatin Calcium (Crestor) 5 mg PO [facility] Last Admin: 10/21/16 21:47 Dose: 5 mg - Labs Labs: 10/21/16 16:17 10/21/16 16:17 PT 11.4 SECONDS (9.7-12.2) 10/14/16 13:15 INR 1.0 10/14/16 13:15 APTT 37 SECONDS (21-34) H 10/14/16 13:15 - Constitutional Appears: No Acute Distress, Chronically Ill - Head Exam Head Exam: ATRAUMATIC, NORMAL INSPECTION - Eye Exam Eye Exam: EOMI, Normal appearance - Neck Exam Neck Exam: Normal Inspection. absent: Tenderness - Respiratory Exam Respiratory Exam: Clear to Ausculation Bilateral, NORMAL BREATHING PATTERN - Cardiovascular Exam Cardiovascular Exam: REGULAR RHYTHM, +S1 - GI/Abdominal Exam GI & Abdominal Exam: Soft. absent: Tenderness - Extremities Exam Extremities Exam: Pedal Edema. absent: Tenderness - Neurological Exam Neurological Exam: Alert, Motor Sensory Deficit - Skin Skin Exam: Dry, Warm Assessment and Plan (1) Diabetic ulcer of lower leg Status: Acute (2) Acute renal failure (ARF) Status: Acute (3) HTN (hypertension) Status: Chronic (4) Type 2 diabetes mellitus with diabetic nephropathy Status: Acute (5) CVA (cerebrovascular accident) Status: Acute (6) ESRD (end stage renal disease) Status: Acute - Assessment and Plan (Free Text) Plan: Dialysis today IV ABs Increase phoslo Start EPO Outpt dialysis when fevers maciel
[2016-10-22] MEDS ORDERED: Epoetin Alfa 10,000 unit/ml Dialysis IV SCH (16:00)
[2016-10-22] MEDS: Oxycodone/Acetaminophen 5/325 mg Tab PO PRN (17:47)
--- NOTE | 2016-10-22 22:18 | CP.PCM.PN ---
<Eduardo Meier - Last Filed: 10/22/16 22:15> Subjective - Date & Time of Evaluation Date of Evaluation: 10/20/18 Time of Evaluation: 07:47 - Subjective Subjective: Pt seen and examined. Pt reports that she vomited overnight and feels very weak. Pt also complains of pain in her back. Pt denies fever, chills, chest pain , shortness of breath. Objective - Vital Signs/Intake and Output Vital Signs (last 24 hours): Temp Pulse Resp BP Pulse Ox 97 F L 95 H 20 155/68 H 95 10/22/16 18:51 10/22/16 19:00 10/22/16 18:51 10/22/16 19:15 10/22/16 18:51 Intake and Output: 10/22/16 10/23/16 18:59 06:59 Intake Total 950 Balance 950 - Medications Medications: Current Medications Albuterol/Ipratropium (Duoneb 3 Mg/0.5 Mg (3 Ml) Ud) 3 ml INH RQ6 PRN PRN Reason: Shortness of Breath Last Admin: 10/18/16 08:01 Dose: 3 ml Amlodipine Besylate (Norvasc) 10 mg PO DAILY [facility] Last Admin: 10/22/16 14:16 Dose: Not Given Aspirin (Aspirin Chewable) 81 mg PO DAILY [facility] Last Admin: 10/22/16 10:53 Dose: 81 mg Calcium Acetate (Phoslo) 1,334 mg PO TIDCC [facility] Last Admin: 10/22/16 19:15 Dose: 1,334 mg Carvedilol (Coreg) 12.5 mg PO BID [facility] Last Admin: 10/22/16 19:15 Dose: 12.5 mg Epoetin Steven (Procrit) 10,000 unit IV MWF@1600 [facility] Last Admin: 10/22/16 17:33 Dose: 10,000 unit Escitalopram Oxalate (Lexapro) 10 mg PO DAILY [facility] Last Admin: 10/22/16 10:53 Dose: 10 mg Famotidine (Pepcid) 20 mg PO DAILY [facility] Last Admin: 10/22/16 10:53 Dose: 20 mg Ferric Sodium Gluconate Complex (Ferrlecit) 125 mg IVPB DAILY [facility] Stop: 10/24/16 10:16 Last Admin: 10/22/16 10:51 Dose: 125 mg Furosemide (Lasix) 40 mg PO DAILY [facility] Last Admin: 10/22/16 10:53 Dose: 40 mg Piperacillin Sod/Tazobactam Sod (Zosyn 2.25 Gm Iv Premix) 50 mls @ 100 mls/hr IVPB Q8H [facility] Last Admin: 10/22/16 19:17 Dose: 100 mls/hr Insulin Human Regular (Novolin R) 0 unit SC ACHS [facility]EN[facility] PRN Reason: Protocol Last Admin: 10/22/16 21:16 Dose: 2 unit Mirtazapine (Remeron) 7.5 mg PO HS [facility] Last Admin: 10/22/16 21:12 Dose: 7.5 mg Oxycodone/Acetaminophen (Percocet 5/325 Mg Tab) 1 tab PO Q4H PRN PRN Reason: Pain, moderate (4-7) Stop: 10/23/16 15:08 Last Admin: 10/22/16 17:47 Dose: 1 tab Rosuvastatin Calcium (Crestor) 5 mg PO [facility] Last Admin: 10/22/16 21:12 Dose: 5 mg - Labs Labs: 10/21/16 16:17 10/21/16 16:17 PT 11.4 SECONDS (9.7-12.2) 10/14/16 13:15 INR 1.0 10/14/16 13:15 APTT 37 SECONDS (21-34) H 10/14/16 13:15 - Constitutional Appears: No Acute Distress - Head Exam Head Exam: ATRAUMATIC, NORMOCEPHALIC - Eye Exam Eye Exam: EOMI, PERRL - ENT Exam ENT Exam: Mucous Membranes Moist. absent: Mucous Membranes Dry - Neck Exam Neck Exam: Full ROM. absent: Lymphadenopathy - Respiratory Exam Respiratory Exam: Clear to Ausculation Bilateral. absent: Rales, Rhonchi - Cardiovascular Exam Cardiovascular Exam: +S1, +S2. absent: Gallop, Rubs, Murmur - GI/Abdominal Exam GI & Abdominal Exam: Soft. absent: Distended, Tenderness - Extremities Exam Extremities Exam: absent: Pedal Edema Additional comments: Right lateral leg venous ulcer; left aka - Neurological Exam Neurological Exam: Alert, Awake, Oriented x3 - Psychiatric Exam Psychiatric exam: Normal Affect, Normal Mood - Skin Skin Exam: Normal Color, Warm Assessment and Plan - Assessment and Plan (Free Text) Assessment: Follow up H/H norberto. Discuss KRISTOPHER possibility. Right Lateral Lower Extremity Ulcer WBC 12.5 Afebrile, HR 90s Blood cultures - no growth after 5 days Zosyn 2.25 gm IVPB q8h Tibia/Fibula X-ray: soft tissue changes consistent with extensive circumferential subcutaneous edema/lymphedema/cellulitis. Posterior mid calf soft lucency consistent with history of calf ulcer. Atherosclerotic vascular disease. (see full report) PT/OT Lower Extremity arterial doppler positive for mild femoropopliteal and moderate infrapopliteal occlusive disease in the right lower extremity, medial calcification and small vessel disease (please see full report) Angiography and abdominal ileofemoral runoff showing evidence of significant PVD (please see full report) As per Dr. Martinez, pt will be scheduled for outpatient procedure ESRD Day 2 s/p Left AV fistula placement and Right IJ catheter placement by Dr. Martinez Dialysis schedule TTS - will follow M,W,F as an outpatient Est GFR 6 Renal ultrasound - medical renal disease, no evidence of nephrolithiasis or hydronephrosis (please see full report) Consulted nephrology, Dr. Salinas. Help appreciated. Phoslo 667 mg po tidcc Ferrlecit 125 mg IV qd HTN: Norvasc 10 mg po qd Coreg 12.5mg po bid Lasix 40 mg po qd Diabetes Mellitus Glucose 188 Hemoglobin a1c 6.8 RISS Accuchecks History of CVA Crestor 5 mg po HS ASA 81 mg po daily PT/OT Uncontrolled Asthma Duoneb RQ6 PRN for shortness of breath CXR: interstitial prominence, May reflect infection or edema. Probable small pleural effusion. Monitor Hyperlipidemia Crestor 5 mg po HS triglycerides 336 Cholesterol 290 LDL 126 Anemia of Chronic Disease hemoglobin 9.5 Iron 51 TIBC 189 % saturation 27 Ferritin 241 Ferrlecit daily Depression: Remeron 7.5 mg po hs Lexapro 10 mg po qd Prophylaxis: Lovenox 30 mg SC daily Pepcid 20 mg po daily SCD contraindicated due to right lower extremity ulcer and left AKA <Abel Flores Jr. - Last Filed: 11/02/16 13:47> Objective - Vital Signs/Intake and Output Vital Signs (last 24 hours): Temp Pulse Resp BP Pulse Ox 98.3 F 77 20 112/63 95 10/23/16 16:00 10/23/16 16:00 10/23/16 16:00 10/23/16 16:00 10/23/16 16:00 - Labs Labs: 10/21/16 16:17 10/21/16 16:17 PT 11.4 SECONDS (9.7-12.2) 10/14/16 13:15 INR 1.0 10/14/16 13:15 APTT 37 SECONDS (21-34) H 10/14/16 13:15 Attending/Attestation - Attestation I have personally seen and examined this patient.: Yes I have fully participated in the care of the patient.: Yes I have reviewed all pertinent clinical information, including history, physical exam and plan: Yes Notes (Text): 11/02/16 13:47 Agree with findings and plan
[2016-10-23] MEDS: Piperacill/Tazo 2.25gm in Dex 50 ML IVPB SCH ×2 (00:19→08:31)
[2016-10-23] MEDS: (Novolin R) Insulin Human Regular 100 units/ml vial SC SCH ×2 (08:31→12:28)
--- NOTE | 2016-10-23 10:36 | CP.PCM.PN ---
Subjective - Date & Time of Evaluation Date of Evaluation: 10/23/16 Time of Evaluation: 10:33 - Subjective Subjective: Stable dialysis 10/22 Fevers less- on IV zosyn post op AV access No discharges from wounds- has bruit AV fistula although painful Feels bad- no specific complaints except left arm pains Labs reviewed Will continue phoslo and EPO as is Objective - Vital Signs/Intake and Output Vital Signs (last 24 hours): Temp Pulse Resp BP Pulse Ox 98.8 F 85 20 136/83 96 10/23/16 09:09 10/23/16 09:09 10/23/16 09:09 10/23/16 09:09 10/23/16 09:09 Intake and Output: 10/23/16 10/23/16 06:59 18:59 Intake Total 370 Balance 370 - Medications Medications: Current Medications Albuterol/Ipratropium (Duoneb 3 Mg/0.5 Mg (3 Ml) Ud) 3 ml INH RQ6 PRN PRN Reason: Shortness of Breath Last Admin: 10/18/16 08:01 Dose: 3 ml Amlodipine Besylate (Norvasc) 10 mg PO DAILY [facility] Last Admin: 10/22/16 14:16 Dose: Not Given Aspirin (Aspirin Chewable) 81 mg PO DAILY [facility] Last Admin: 10/22/16 10:53 Dose: 81 mg Calcium Acetate (Phoslo) 1,334 mg PO TIDCC [facility] Last Admin: 10/23/16 08:31 Dose: 1,334 mg Carvedilol (Coreg) 12.5 mg PO BID [facility] Last Admin: 10/22/16 19:15 Dose: 12.5 mg Epoetin Steven (Procrit) 10,000 unit IV MWF@1600 [facility] Last Admin: 10/22/16 17:33 Dose: 10,000 unit Escitalopram Oxalate (Lexapro) 10 mg PO DAILY [facility] Last Admin: 10/22/16 10:53 Dose: 10 mg Famotidine (Pepcid) 20 mg PO DAILY [facility] Last Admin: 10/22/16 10:53 Dose: 20 mg Ferric Sodium Gluconate Complex (Ferrlecit) 125 mg IVPB DAILY [facility] Stop: 10/24/16 10:16 Last Admin: 10/22/16 10:51 Dose: 125 mg Furosemide (Lasix) 40 mg PO DAILY [facility] Last Admin: 10/22/16 10:53 Dose: 40 mg Heparin Sodium (Porcine) (Heparin) 5,000 units SC Q8 [facility] Last Admin: 10/23/16 05:27 Dose: 5,000 units Piperacillin Sod/Tazobactam Sod (Zosyn 2.25 Gm Iv Premix) 50 mls @ 100 mls/hr IVPB Q8H [facility] Last Admin: 10/23/16 08:31 Dose: 100 mls/hr Insulin Human Regular (Novolin R) 0 unit SC ACHS [facility] PRN Reason: Protocol Last Admin: 10/23/16 08:31 Dose: 4 unit Mirtazapine (Remeron) 7.5 mg PO HS [facility] Last Admin: 10/22/16 21:12 Dose: 7.5 mg Oxycodone/Acetaminophen (Percocet 5/325 Mg Tab) 1 tab PO Q4H PRN PRN Reason: Pain, moderate (4-7) Stop: 10/23/16 15:08 Last Admin: 10/22/16 17:47 Dose: 1 tab Rosuvastatin Calcium (Crestor) 5 mg PO HS [facility] Last Admin: 10/22/16 21:12 Dose: 5 mg - Labs Labs: 10/21/16 16:17 10/21/16 16:17 PT 11.4 SECONDS (9.7-12.2) 10/14/16 13:15 INR 1.0 10/14/16 13:15 APTT 37 SECONDS (21-34) H 10/14/16 13:15 - Constitutional Appears: No Acute Distress, Chronically Ill - Head Exam Head Exam: ATRAUMATIC, NORMAL INSPECTION - Eye Exam Eye Exam: EOMI, Normal appearance - Neck Exam Neck Exam: Normal Inspection. absent: Tenderness - Respiratory Exam Respiratory Exam: Clear to Ausculation Bilateral, NORMAL BREATHING PATTERN - Cardiovascular Exam Cardiovascular Exam: REGULAR RHYTHM, +S1 - GI/Abdominal Exam GI & Abdominal Exam: Soft. absent: Tenderness - Extremities Exam Extremities Exam: Pedal Edema, Tenderness - Neurological Exam Neurological Exam: Awake, Motor Sensory Deficit - Skin Skin Exam: Dry, Warm Assessment and Plan (1) Diabetic ulcer of lower leg Status: Acute (2) Acute renal failure (ARF) Status: Acute (3) HTN (hypertension) Status: Chronic (4) Type 2 diabetes mellitus with diabetic nephropathy Status: Acute (5) CVA (cerebrovascular accident) Status: Acute (6) ESRD (end stage renal disease) Status: Acute - Assessment and Plan (Free Text) Plan: Dialysis MWF IV ABs Outpt dialysis when stable
[2016-10-23] MEDS: Ferric Sodium Gluconat Complex 62.5 mg/5 ml Vial IVPB SCH (11:38)
[2016-10-23] MEDS: Oxycodone/Acetaminophen 5/325 mg Tab PO PRN (11:40)
[2016-10-23 17:11] VITALS: BP 112/63; RESP 20; TEMP 98.3; O2SAT 95
[2016-10-23 18:41] VITALS: PULSE 81
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
[2016-10-24] MEDS ORDERED: Epoetin Alfa 10,000 unit/ml Dialysis IV SCH (09:00)
== END 2016-10-23 17:05 | DRG 264 ==
LOC: C.ER 10:39 → C.9E 14:24 → C.3T 16:02 → C.6T 10-16 19:20
PROVIDERS: ADMIT Internal Medicine; ATTEND Internal Medicine
PROC: 5A1D60Z (ICD-10-PCS; 2016-10-16)
PROC: 02HV33Z Insertion of Infusion Device into Superior Vena Cava, Percutaneous Approach (ICD-10-PCS; 2016-10-16)
PROC: B5181ZA Fluoroscopy of Superior Vena Cava using Low Osmolar Contrast, Guidance (ICD-10-PCS; 2016-10-16)
PROC: 0JH63XZ Insertion of Tunneled Vascular Access Device into Chest Subcutaneous Tissue and Fascia, Percutaneous Approach (ICD-10-PCS; 2016-10-20)
PROC: 02HV33Z Insertion of Infusion Device into Superior Vena Cava, Percutaneous Approach (ICD-10-PCS; 2016-10-20)
PROC: B5181ZA Fluoroscopy of Superior Vena Cava using Low Osmolar Contrast, Guidance (ICD-10-PCS; 2016-10-20)
PROC: 03180ZD Bypass Left Brachial Artery to Upper Arm Vein, Open Approach (ICD-10-PCS; principal; 2016-10-20 10:30)
DX: I13.2 Hypertensive heart and chronic kidney disease with heart failure and with stage 5 chronic kidney disease, or end stage renal disease (principal); N17.9 Acute kidney failure, unspecified; E87.2 Acidosis; L03.115 Cellulitis of right lower limb; N18.6 End stage renal disease; E11.21 Type 2 diabetes mellitus with diabetic nephropathy; J45.901 Unspecified asthma with (acute) exacerbation; I69.354 Hemiplegia and hemiparesis following cerebral infarction affecting left non-dominant side; L97.221 Non-pressure chronic ulcer of left calf limited to breakdown of skin; E11.622 Type 2 diabetes mellitus with other skin ulcer; I50.9 Heart failure, unspecified; E11.51 Type 2 diabetes mellitus with diabetic peripheral angiopathy without gangrene; E11.22 Type 2 diabetes mellitus with diabetic chronic kidney disease; Z79.82 Long term (current) use of aspirin; D63.1 Anemia in chronic kidney disease; F32.9 Major depressive disorder, single episode, unspecified; E78.00 Pure hypercholesterolemia, unspecified; E78.5 Hyperlipidemia, unspecified; E11.69 Type 2 diabetes mellitus with other specified complication; Z79.899 Other long term (current) drug therapy; I70.208 Unspecified atherosclerosis of native arteries of extremities, other extremity; E87.5 Hyperkalemia; Z89.612 Acquired absence of left leg above knee

== ENCOUNTER 2016-11-21 09:50 | Observation (INO) | payer OTHER, MEDICARE ==
[2016-11-21 10:18] VITALS: BMI 30.4
[2016-11-21 10:43] LABS: POTASSIUM 4.6 mmol/L (3.6-5.2)
[2016-11-21 10:46] LABS: CALCIUM 7.9 mg/dl (8.6-10.4)
[2016-11-21] MEDS ORDERED: Propofol 10 mg/ml Inj (20 ML) ONE ×2 (12:30→13:43)
[2016-11-21] MEDS ORDERED: Midazolam 2 MG/2 ML VIAL ONE (12:31)
[2016-11-21] MEDS ORDERED: Iodixanol 320 MG/ML 200 ML BOTTLE IV ONE (12:33)
[2016-11-21] MEDS ORDERED: Iodixanol 320 MG/ML 100 ML BOTTLE IV ONE (13:57)
--- NOTE | 2016-11-21 14:41 | PCM.SURG1 ---
Surgeon's Initial Post Op Note - Surgeon's Notes Surgeon: alberto Breaking Machine Operator: 0 Type of Anesthesia: IV Sedation Anesthesia Administered By: anthony Pre-Operative Diagnosis: gamgrene of right leg/foot Operative Findings: severe tiabial disease. multiple proximal 90+% stemoses/ Posterior tibial open to foot. 99% popliteal stenosis. 99% anterior Post-Operative Diagnosis: same Operation Performed: aortofemoral angiogram via left groin. balloon angioplasty and 6x40 stent proximal sfa. atherectomy popliteal/ posterior tibial. balloon angioplasty of posterior tibial , anterior tibial. and popliteal. perclose left groin Specimen/Specimens Removed: 0 Estimated Blood Loss: EBL {In ML}: 50 Blood Products Given: N/A Drains Used: No Drains Post-Op Condition: Good Date of Surgery/Procedure: 11/21/16 Time of Surgery/Procedure: 14:41
[2016-11-21] MEDS ORDERED: Albuterol-Ipratrop 3 mg / 0.5 (3 ml) UD IH PRN (14:52)
[2016-11-21] MEDS ORDERED: Oxycodone/Acetaminophen 5/325 mg Tab PO PRN (17:29)
[2016-11-21] MEDS: Naproxen 550 mg Tab PO SCH (19:27)
[2016-11-21] MEDS: Potassium Chloride 20 mEq ER Tab PO SCH (19:28)
[2016-11-21 20:42] VITALS: RESP 20
[2016-11-21] MEDS: (Novolin R) Insulin Human Regular 100 units/ml vial SC SCH (22:24)
[2016-11-22] MEDS: (Novolin R) Insulin Human Regular 100 units/ml vial SC SCH ×3 (08:13→16:47)
[2016-11-22] MEDS: Potassium Chloride 20 mEq ER Tab PO SCH ×2 (09:54→10:14)
[2016-11-22] MEDS: Naproxen 550 mg Tab PO SCH (09:54)
[2016-11-22] MEDS ORDERED: Multivitamin Vitamin B Complex (Nephro-Vite) Tab PO SCH (10:00)
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
--- NOTE | 2016-11-22 15:21 | CON ---
DATE: 11/22/2016 ATTENDING PHYSICIAN: Dr. Martinez. HISTORY OF PRESENT ILLNESS: The patient is a 61-year-old female who is being seen for management of dialysis-dependent renal failure. The patient has a history of diabetes and hypertension, on dialysi s, who was admitted yesterday after a right femoral angiogram and angioplasty and atherectomy of her right tibial and popliteal arteries. She subsequently underwent dialysis. Her sodium was 135, potas sium 4.6, chloride 98, CO2 of 29, BUN 27, creatinine 5.1, glucose 240. PAST MEDICAL HISTORY: Asthma, stroke, osteomyelitis of the left lower extremity, post left AKA. ALLERGIES: PINEAPPLE. MEDICATIONS: Include Albuterol inhaler, Norvasc, vitamin C, aspirin, PhosLo, Lexapro, Pepcid, hydroc hlorothiazide, insulin, lisinopril, Remeron, Percocet, Crestor. She has been admitted to [facility]. FAMILY HISTORY: Not known. SOCIAL HISTORY: She denies alcohol or drug abuse. She does not smoke. REVIEW OF SYSTEMS: Continues to have right leg pain. She denied headache, chest pain, shortness of breath, abdominal pain, nausea or dysuria. PHYSICAL EXAMINATION: GENERAL: She was awake and alert, in no acute distress. VITAL SIGNS: Her temperature was 98.5, blood pressure 128/70 and her pulse was 85. NECK: There was no jugular venous distention at 30 degrees. LUNGS: Clear. HEART: Rhythm was regular. ABDOMEN: Soft and nontender. There was no presacral edema or CVA tenderness. EXTREMITIES: Left AKA amputation was noted. Her right calf was tender to touch. IMPRESSION: End-stage renal disease, dialysis dependent, diabetic nephropathy, hypertension, periphe ral vascular disease, post left above-knee amputation, ischemic right leg. RECOMMENDATIONS: Will maintain dialysis schedule to schedule on 11/24. Await further treatment and e valuation by vascular. Thank you for your kind referral. We will continue to follow with you. Daniel Frank MD cc: [id number] TT: 11/22/2016 15:19:58 Confirmation # [id number] Dictation # [id number] rn
[2016-11-22 17:26] VITALS: BP 170/66; PULSE 87; TEMP 98.4; O2SAT 95
--- NOTE | 2016-11-24 08:44 | VAS ---
DATE: 11/21/2016 PREOPERATIVE DIAGNOSIS: Gangrene right foot heel, calf. PROCEDURE CARRIED OUT: Aortofemoral angiogram via left femoral artery. With selective catheterizati on of right femoral artery. Balloon angioplasty and stenting of the proximal superficial femoral art debbie. Balloon angioplasty and atherectomy of the distal popliteal artery. Atherectomy of the posteri or tibial and balloon angioplasty of the anterior tibial artery. SURGEON: Teddy Martinez MD. INTERNATIONAL LOGISTICS MANAGER: None. ANESTHESIOLOGIST: Mr. Oneill and Dr. Og. INDICATIONS: The patient is a 61-year-old woman on dialysis with previous left above-knee amputation . OPERATIVE FINDINGS: One, the aorta and renal arteries were free of significant occlusive disease. D etailed pictures below the level of the groin were not taken on the left side, but showed patency of the proximal vessels. The common external iliac arteries were widely patent on the right side. The profunda femoris artery was widely patent. The proximal portion of the superficial femoral artery blank d perhaps a 50% stenosis. More distally, there was diffuse disease in the popliteal artery. With 99 % stenosis of the distal portion of the popliteal artery. Severe disease just beyond the origin of t he anterior tibial artery, 99% stenosis and severe disease of the proximal posterior tibial artery. Distally, the posterior tibial artery was the major vessel into the foot. The peroneal artery did no t appear to reconstitute distally. Subsequent to performance of diagnostic arteriogram, a stiff-angl ed guidewire was advanced over the aortic bifurcation, and using eunice wire technique, 2 wires are pa ssed, one into the posterior tibial artery and one into the anterior tibial artery. The peroneal art debbie was tackled first, and using a pathway atherectomy device, the distal portion of the popliteal ar emre and the proximal half of the posterior tibial artery were atherectomized and dilated this with a 2 and a 2-1/2 mm balloon, with very good cosmetic results. We then selectively cannulated the anter ior tibial artery with a variety of techniques. We were able to cannulate and cross this. At this p oint, we then carried out a balloon angioplasty using a 3 mm of the proximal portion; however, distal ly, the anterior tibial artery did not reconstitute into the foot. Subsequent to this, on the way ou t, we then reanalyzed the proximal portion of the superficial femoral artery just below its origin, a nd at this point, we dilated this with a 5 mm balloon. This resulted in dissection, and given the ci rcumstances, the most expeditious thing to do is place a 6 mm stent here which we did. This resulted in good apposition and excellent flow. Then a Perclose device was deployed in the left groin. PROCEDURE CARRIED OUT: Aortofemoral angiogram with selective catheterization of right femoral artery , balloon angioplasty and stenting of the proximal superficial femoral artery, a pathway atherectomy of the tibioperoneal trunk and distal popliteal artery and balloon angioplasty of the anterior tibial artery. Teddy Martinez Jr., MD cc:Abel Flores Jr., MD; Carlos Salinas MD 56 TT: 11/21/2016 21:38:29 Confirmation # [id number] Dictation # [id number] mn
== END 2016-11-22 17:15 ==
LOC: C.SPRAD 09:50 → C.9S 14:55 → C.3T 18:40
PROVIDERS: ADMIT Surgery Vascular Surgery; ATTEND Surgery Vascular Surgery
DX: E11.52 Type 2 diabetes mellitus with diabetic peripheral angiopathy with gangrene (principal); I12.0 Hypertensive chronic kidney disease with stage 5 chronic kidney disease or end stage renal disease; N18.6 End stage renal disease; Z79.4 Long term (current) use of insulin; E11.22 Type 2 diabetes mellitus with diabetic chronic kidney disease; Z99.2 Dependence on renal dialysis; E78.00 Pure hypercholesterolemia, unspecified; J45.909 Unspecified asthma, uncomplicated; Z86.73 Personal history of transient ischemic attack (TIA), and cerebral infarction without residual deficits; Z89.611 Acquired absence of right leg above knee
CPT/HCPCS: 36415; 37227; 80048; G0378

== ENCOUNTER 2016-12-11 12:12 | Inpatient (IN) | payer MEDICARE, OTHER ==
[2016-12-11 12:34] VITALS: BMI 27.3
[2016-12-11 13:49] LABS: BASO # 0.1 K/uL (0.0-0.2); EOS # 1.4 K/uL (0.0-0.7); EOS % 10.2 % (0.0-4.0); HEMATOCRIT 35.4 % (34.0-47.0); LYMPH # 2.6 K/uL (1.0-4.3); LYMPH % 19.1 % (20.0-40.0); MEAN CELL VOLUME 88.9 fL (81.0-99.0); MEAN CORPUSCULAR HEMOGLOBIN 28.5 pg (27.0-31.0); MEAN CORPUSCULAR HGB CONC 32.1 g/dL (33.0-37.0); MEAN PLATELET VOLUME 8.7 fL (7.2-11.7); MONO # 0.9 K/uL (0.0-0.8); MONO % 6.6 % (0.0-10.0); RED CELL DISTRIBUTION WIDTH 15.9 % (11.5-14.5); WHITE BLOOD COUNT 13.6 K/uL (4.8-10.8)
[2016-12-11 13:57] LABS: INR 1.1
[2016-12-11 14:01] LABS: POTASSIUM 3.8 mmol/L (3.6-5.2)
[2016-12-11 14:04] LABS: ALB/GLOB RATIO 0.7 (1.0-2.1); BILIRUBIN,TOTAL 0.5 mg/dL (0.2-1.3); CALCIUM 8.4 mg/dl (8.6-10.4)
--- NOTE | 2016-12-11 14:21 | RAD ---
HISTORY: preop COMPARISON: Chest x-ray performed 10/20/16 TECHNIQUE: Chest, one view. FINDINGS: Examination limited by habitus and patient obliquity. The right lung apex is incompletely imaged. Right-sided dialysis catheter with distal tips terminating at the cavoatrial junction and proximal right atrium. LUNGS: Mild pulmonary venous congestion. Please note that chest x-ray has limited sensitivity for the detection of pulmonary masses. PLEURA: No significant pleural effusion identified. No definite pneumothorax . CARDIOVASCULAR: Cardiomegaly. Dense atherosclerotic calcifications of the aorta. OSSEOUS STRUCTURES: Degenerative changes of the spine. VISUALIZED UPPER ABDOMEN: Unremarkable. OTHER FINDINGS: None. IMPRESSION: Limited study. Right-sided dialysis catheter with distal tips terminating at the cavoatrial junction and proximal right atrium. Mild pulmonary venous congestion.
--- NOTE | 2016-12-11 14:27 | C.PDOC ---
History Of Present Illness 61 yr old female brought via EMS from alf, presents to the ER for evaluation of an open wound to right lower leg. Patient is a poor historian and states she is unsure how long she has had the wound for. As per alf patient is scheduled for a debridement of the wound. Patient denies fever, chills, chest pain, SOB, nausea, vomiting, back pain, weakness or numbness. Time Seen by Provider: 12/11/16 13:28 Chief Complaint (Nursing): Abnormal Skin Integrity History Per: Patient History/Exam Limitations: no limitations Onset/Duration Of Symptoms: Unknown Current Symptoms Are (Timing): Still Present Past Medical History Reviewed: Historical Data, Nursing Documentation, Vital Signs Vital Signs: Last Vital Signs Temp 98.3 F 12/11/16 15:05 Pulse 78 12/11/16 15:05 Resp 20 12/11/16 15:05 BP 144/73 12/11/16 15:05 Pulse Ox 95 12/11/16 15:19 - Medical History PMH: Anemia, Asthma, Depression, Diabetes, Gall Bladder Disease, HTN, Hypercholesterolemia, Chronic Kidney Disease Surgical History: Cholecystectomy - [facility] Procedures BYPASS LEFT BRACHIAL ARTERY TO UPPER ARM VEIN, OPEN APPROACH (10/14/16) EXTRACTION OF LEFT UPPER LEG SKIN, EXTERNAL APPROACH (12/04/15) EXTRACTION OF RIGHT UPPER LEG SKIN, EXTERNAL APPROACH (12/04/15) FLUOROSCOPY OF SUP VENA CAVA USING L OSM CONTRAST, GUIDANCE (10/14/16) FLUOROSCOPY OF SUP VENA CAVA USING OTH CONTRAST, GUIDANCE (12/04/15) INSERTION OF INFUSION DEV INTO SUP VENA CAVA, PERC APPROACH (10/14/16) INSERTION OF VAD INTO CHEST SUBCU/FASCIA, PERC APPROACH (10/14/16) PERFORMANCE OF URINARY FILTRATION, MULTIPLE (10/14/16) REPLACE L UP LEG SKIN W NONAUT SUB, PART THICK, RUNNING INSTRUCTOR (12/04/15) REPLACE R UP LEG SKIN W NONAUT SUB, PART THICK, RUNNING INSTRUCTOR (12/04/15) TRANSFER LEFT UPPER LEG SKIN, EXTERNAL APPROACH (12/04/15) TRANSFER RIGHT UPPER LEG SKIN, EXTERNAL APPROACH (12/04/15) Family History: States: No Known Family Hx - Social History Hx Alcohol Use: No Hx Substance Use: No - Immunization History Hx Tetanus Toxoid Vaccination: No Hx Influenza Vaccination: Yes Hx Pneumococcal Vaccination: No Review Of Systems Except As Marked, All Systems Reviewed And Found Negative. Constitutional: Negative for: Fever, Chills Cardiovascular: Negative for: Chest Pain Respiratory: Negative for: Shortness of Breath Gastrointestinal: Negative for: Nausea, Vomiting Musculoskeletal: Negative for: Back Pain Skin: Positive for: Other ((+) Open wound to the right lower leg. ) Neurological: Negative for: Weakness, Numbness Physical Exam - Physical Exam Appears: Well, Non-toxic, No Acute Distress Skin: Warm, Dry Head: Atraumatic, Normacephalic Oral Mucosa: Moist Neck: Normal, Normal ROM, Supple Chest: Symmetrical, No Tenderness Cardiovascular: Rhythm Regular, No Murmur Respiratory: Normal Breath Sounds, No Rales, No Rhonchi, No Wheezing Extremity: Other (Left Leg - Above the knee amputation. Right Leg - Deep purulent wound with yellow/greenish dischagre. ) Neurological/Psych: Oriented x3, Normal Speech, Normal Motor ED Course And Treatment - Laboratory Results Result Diagrams: 12/11/16 13:45 12/11/16 13:45 O2 Sat by Pulse Oximetry: 95 - Other Rad CXR X-Ray: Viewed By Me, Read By Radiologist Interpretation: HISTORY: preop. COMPARISON: Chest x-ray performed 10/20/16. TECHNIQUE: Chest, one view. FINDINGS: Examination limited by habitus and patient obliquity. The right lung apex is incompletely imaged. Right-sided dialysis catheter with distal tips terminating at the cavoatrial junction and proximal right atrium. LUNGS: Mild pulmonary venous congestion. Please note that chest x-ray has limited sensitivity for the detection of pulmonary masses. PLEURA: No significant pleural effusion identified. No definite pneumothorax . CARDIOVASCULAR: Cardiomegaly. Dense atherosclerotic calcifications of the aorta. OSSEOUS STRUCTURES: Degenerative changes of the spine. VISUALIZED UPPER ABDOMEN: Unremarkable. OTHER FINDINGS: None. IMPRESSION: Limited study. Right-sided dialysis catheter with distal tips terminating at the cavoatrial junction and proximal right atrium. Mild pulmonary venous congestion. Medical Decision Making Medical Decision Making: PLAN: * X-Ray - Right Tibia Fibula * CXR * EKG * CBC * CMP * Urinalysis NOTE: * Spoke to Dr. Flores regarding the patient. Dr. Flores accepts the patient. * Patient to go to OR to Dr. Pritchard. Disposition - Disposition Disposition: HOSPITALIZED Disposition Time: 15:18 Condition: FAIR - Clinical Impression Clinical Impression: Infected open wound - PA / TALENT ACQUISITION ASSISTANT / Resident Statement MD/DO has reviewed & agrees with the documentation as recorded. - Scribe Statement The provider has reviewed the documentation as recorded by the Scribe Angeles Sharpe All medical record entries made by the Scribe were at my direction and personally dictated by me. I have reviewed the chart and agree that the record accurately reflects my personal performance of the history, physical exam, medical decision making, and the department course for this patient. I have also personally directed, reviewed, and agree with the discharge instructions and disposition.
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
[2016-12-11] MEDS ORDERED: ceFAZolin IV 1 gm in Dextrose 0 GM/0 ML BAG IVPB ONE (16:20)
[2016-12-11] MEDS ORDERED: Lidocaine 2% Inj (20ml) ONE (16:20)
[2016-12-11] MEDS ORDERED: Bupivacaine HCl 0.25% PF (10 ml) Inj ONE (16:21)
[2016-12-11] MEDS ORDERED: Albuterol-Ipratrop 3 mg / 0.5 (3 ml) UD IH PRN (16:30)
[2016-12-11] MEDS ORDERED: Lactated Ringer's 1,000 ML IV ONE (16:45)
--- NOTE | 2016-12-11 16:51 | RAD ---
PROCEDURE: Radiographs of the right tibia and fibula. HISTORY: wound COMPARISON: None available. TECHNIQUE: Frontal and lateral views obtained. FINDINGS: BONES: No acute displaced fracture. JOINT SPACES: No dislocation. OTHER FINDINGS: Soft tissue irregularity, likely ulcer, at the level of the lateral mid soft tissues. Dense vascular calcifications. No evidence of radiopaque foreign body. IMPRESSION: Soft tissue irregularity, likely ulcer, at the level of the lateral mid soft tissues. Correlate clinically.
[2016-12-11] MEDS ORDERED: Sodium Chloride 0.9% 1,000 ML IV ONE ×2 (17:24→18:30)
[2016-12-11] MEDS: HYDROmorphone 0.5 mg/0.5 ml ISec IVP PRN ×2 (17:25→17:55)
--- NOTE | 2016-12-11 17:29 | PCM.SURG1 ---
Surgeon's Initial Post Op Note - Surgeon's Notes Surgeon: Dr. Shi DPM Aquarium Specialist: Dr. Veliz DPM PGY-1 Type of Anesthesia: IV Sedation, Local Anesthesia Administered By: Dr. Bassem FAGAN Pre-Operative Diagnosis: right posterior leg superficial gangrene Operative Findings: see dictation Post-Operative Diagnosis: same Operation Performed: right posterior leg wound debridement Specimen/Specimens Removed: wound culture, tissue Estimated Blood Loss: EBL {In ML}: 1 Blood Products Given: N/A Drains Used: No Drains Post-Op Condition: Good Date of Surgery/Procedure: 12/11/16 Time of Surgery/Procedure: 17:00
[2016-12-11] MEDS ORDERED: (Novolin R) Insulin Human Regular 100 units/ml vial ONE (17:53)
[2016-12-11] MEDS: Piperacill/Tazo 2.25gm in Dex 2.25 GM/50 ML BAG IVPB SCH (18:05)
[2016-12-11] MEDS ORDERED: Sodium Chloride 0.9% 500 ML IV ONE (18:41)
[2016-12-11 18:49] LABS: HEMATOCRIT 38.1 % (34.0-47.0); MEAN CELL VOLUME 89.6 fL (81.0-99.0); MEAN CORPUSCULAR HEMOGLOBIN 28.3 pg (27.0-31.0); MEAN CORPUSCULAR HGB CONC 31.6 g/dL (33.0-37.0); MEAN PLATELET VOLUME 8.9 fL (7.2-11.7); RED CELL DISTRIBUTION WIDTH 16.5 % (11.5-14.5); WHITE BLOOD COUNT 10.2 K/uL (4.8-10.8)
[2016-12-11 18:53] LABS: POTASSIUM 3.7 mmol/L (3.6-5.2)
[2016-12-11 18:56] LABS: PHOSPHOROUS 4.8 mg/dL (2.5-4.5)
[2016-12-11 18:57] LABS: CALCIUM 8.4 mg/dl (8.6-10.4); MAGNESIUM 2.2 mg/dL (1.6-2.3)
[2016-12-11] MEDS ORDERED: Albumin Human 25% (12.5 gm/50 ml) IV ONE (19:57)
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
[2016-12-11] MEDS: Phenylephrine 30 MG in Sodium Chloride 0.9% 250 ML IV PRN (21:40)
[2016-12-11] MEDS ORDERED: (Novolin R) Insulin Human Regular 100 units/ml vial SC SCH (22:00)
[2016-12-11] MEDS ORDERED: MIRTAZAPINE PO SCH ×2 (22:00)
--- NOTE | 2016-12-11 22:20 | PCM.PROC ---
Procedures Attestation:: I certify that I have explained the specified Operation(s) or Procedure(s), risks, benefits and reasonable alternatives to the Patient and/or other person responsible. The opportunity was given to ask questions and all questions answered - Central Line Placement Left Internal Jugular Triple Lumen Catheter Aseptic technique was employed throughout the procedure: Hand Hygiene done prior to procedure, Full sterile barriers (mask, hair cover, sterile gown, sterile gloves), Chloraprep Antiseptic: 30 second prep for IJ or SC sites CVP Time Out Performed: Yes Pt. Placed on Pulse Ox Monitor: Yes Local Anesthesia Used: Lidocaine 1% Ultrasound Used for Placement: Yes Central Line Lumen Inserted: triple Central Line Length: 20 cm Post Procedure: Sutured in Place, Good Blood Return, All Ports Aspirated, Flushed, Capped, Sterile Dressing Applied Secured by: Suture Post procedure dressing: Chlorhexidine disc (Biopatch) Post Procedure X-Ray: Yes Patient Tolerated Procedure: No Complications Immediate Complications: Other (CXR showed catheter was placed too deep. Attending Dr. Melo adjusted it and repeat CXR was done) Additional Comments: Central line was placed under emergency conditions. Consent could not be obtained for patient due to patient's acuity of condition. Central line was placed under direct supervision and guidance of medical liaison Dr. Melo
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
[2016-12-11] MEDS: (Novolin R) Insulin Human Regular 100 units/ml vial SC SCH (22:45)
[2016-12-12] MEDS: Piperacill/Tazo 2.25gm in Dex 2.25 GM/50 ML BAG IVPB SCH ×3 (00:35→16:38)
[2016-12-12] MEDS: (Novolin R) Insulin Human Regular 100 units/ml vial SC SCH ×4 (00:40→18:46)
[2016-12-12] MEDS ORDERED: Vancomycin 1 gm/NS 200 ml 1 GM/200 ML BAG IVPB SCH (06:00)
[2016-12-12] MEDS: Phenylephrine 30 MG in Sodium Chloride 0.9% 250 ML IV PRN ×2 (06:00→19:00)
[2016-12-12 06:39] LABS: BASO % 0.3 % (0.0-2.0)
[2016-12-12 06:42] LABS: BASO # 0.1 K/uL (0.0-0.2); EOS # 1.3 K/uL (0.0-0.7); EOS % 4.4 % (0.0-4.0); HEMATOCRIT 32.3 % (34.0-47.0); LYMPH # 1.6 K/uL (1.0-4.3); LYMPH % 5.5 % (20.0-40.0); MEAN CELL VOLUME 89.6 fL (81.0-99.0); MEAN CORPUSCULAR HEMOGLOBIN 31.5 pg (27.0-31.0); MEAN CORPUSCULAR HGB CONC 35.2 g/dL (33.0-37.0); MEAN PLATELET VOLUME 9.5 fL (7.2-11.7); MONO # 0.9 K/uL (0.0-0.8); MONO % 3.1 % (0.0-10.0); NRBC % 0.2 % (0.0-2.0); PLATELET COUNT 538 K/uL (130-400); RED CELL DISTRIBUTION WIDTH 16.7 % (11.5-14.5)
[2016-12-12 06:48] LABS: WHITE BLOOD COUNT 29.3 K/uL (4.8-10.8)
[2016-12-12 06:54] LABS: ALB/GLOB RATIO 0.9 (1.0-2.1); BILIRUBIN,TOTAL 0.5 mg/dL (0.2-1.3); TOTAL PROTEIN 6.1 g/dL (6.3-8.3)
[2016-12-12 06:55] LABS: CALCIUM 7.5 mg/dl (8.6-10.4); PHOSPHOROUS 5.3 mg/dL (2.5-4.5)
[2016-12-12 07:04] LABS: TROPONIN I 0.055 ng/mL (0.00-0.120)
[2016-12-12 08:15] LABS: EOSINOPHIL 4 % (0-4); METAMYELOCYTE 1 % (0-0); NEUTROPHIL 77 % (50-75); TOTAL CELLS COUNTED 100
--- NOTE | 2016-12-12 09:10 | CP.CCUPN ---
<ReeseBhupinder - Last Filed: 12/12/16 12:14> CCU Subjective - Physician Review Subjective (Free Text): 12/12/16 09:07 Patient seen and examined at the bedside. The patient is POD#1 s/p right foot wound I&D with podiatry. The patient became hypotensive following the procedure in the PACU and was subsequently trasnfered to the ICU for monitoring and critical care. The patient appears in no acute distress this morning. The patient had no acute events overnight. The nursing staff reports no issues. The patient reports that her pain is adequately controlled at this point. The patient denies fever, chills, headache, chest pain, shortness of breath, abdominal pain, N/V/D/C, changes in bowel/bladder, and extremity paresthesias. Today on rounds, lantus 10u SC HS and Novolog 4u with meals were added to the patient's medical regimen. Her insulin sliding scale was increased to medium. ID consultation was placed for Dr. Fajardo and an ABG shock panel was ordered. The patient's dilaudid was DC. 12/12/16 12:14 Post rounds, code sepsis was called at 11:42am. Blood cultures, wound cultures , and sputum cultures were ordered. The patient is anuric 2/2 to ESRD, so no urine cultures were obtained. In addition, the patent was no given IVF due to her end-stage renal status. Dr. Fajardo suggested adding flagyl 500mg IV q12 first dose now to the patient's vanco and zosyn. The patient is hemodynamically stable at this time without variation in her vital signs. The patient has a right radial arterial line and a left IJ TLC for her access. Repeat lactate was ordered for 14:21, 3 hours after the first lactate (2.5). CCU Objective - Vital Signs / Intake & Output Vital Signs (Last 4 hours): Vital Signs Pulse Resp BP Pulse Ox 12/12/16 07:01 73 15 98/48 L 100 12/12/16 07:00 71 15 100 12/12/16 06:32 71 10 L 106/50 L 100 12/12/16 06:01 73 110/54 L 100 12/12/16 06:00 73 13 110/54 L 100 12/12/16 05:31 72 12 107/50 L 100 Intake and Output (Last 8hrs): Intake & Output 12/11/16 12/12/16 12/12/16 22:59 06:59 14:59 Intake Total 96 946 220 Output Total 0 0 Balance 96 946 220 Weight 75 kg Intake: IV 50 266 Intake, IV Amount 46 680 120 Left Distal Port Internal 450 80 Jugular Left Proximal Port 230 40 Internal Jugular Right Wrist 46 Oral 100 Output: Urine 0 0 Urine, Voided 0 0 Stool 0 - Physical Exam Head: Positive for: Atraumatic, Normocephalic Pupils: Positive for: PERRL Extroacular Muscles: Positive for: EOMI Conjunctiva: Positive for: Normal Mouth: Positive for: Moist Mucous Membranes. Negative for: Drooling Neck: Negative for: JVD, Lymphadenopathy Respiratory/Chest: Positive for: Clear to Auscultation, Good Air Exchange. Negative for: Respiratory Distress, Accessory Muscle Use, Decreased Breath Sounds, Rales, Rhonchi Cardiovascular: Positive for: Regular Rate and Rhythm, Normal S1, S2, Peripheal Pulses Present (diminished 1+ B/L). Negative for: Murmurs Abdomen: Positive for: Normal Bowel Sounds. Negative for: Tenderness, Distention, Peritoneal Signs, Rebound, Guarding Upper Extremity: Positive for: Normal Inspection, Normal ROM, NORMAL PULSES, Neurovascularly Intact. Negative for: Cyanosis, Edema Lower Extremity: Negative for: Normal Inspection (Left AKA, right foot dressed C /D/I) - Medications Active Medications: Active Medications Generic Name Dose Route Start Last Admin Trade Name Freq PRN Reason Stop Dose Admin Albuterol/Ipratropium 3 ml 12/11/16 16:30 12/11/16 18:23 Duoneb 3 Mg/0.5 Mg (3 Ml) Ud IH 3 ml RQ6 PRN Administration Shortness of Breath Amlodipine Besylate 5 mg 12/12/16 10:00 Norvasc PO DAILY [facility] Aspirin 81 mg 12/12/16 10:00 Ecotrin PO DAILY JENNA Calcium Acetate 667 mg 12/11/16 17:00 12/11/16 22:00 Phoslo PO Not Given TIDCC JENNA Clopidogrel Bisulfate 75 mg 12/12/16 10:00 Plavix PO DAILY [facility] Docusate Sodium 100 mg 12/11/16 22:00 12/11/16 22:00 Colace PO Not Given HS JENNA Escitalopram Oxalate 10 mg 12/12/16 10:00 Lexapro PO DAILY JENNA Heparin Sodium (Porcine) 5,000 units 12/12/16 06:00 12/12/16 05:25 Heparin SC 5,000 units Q8 JENNA Administration Hydromorphone HCl 0.5 mg 12/11/16 17:27 12/11/16 17:55 Dilaudid IVP 0.5 mg Q15M PRN Administration Pain, severe (8-10) Hydromorphone/Sodium Chloride 6 mg 12/11/16 17:28 Dilaudid [employer] IV Q4H PRN Pain, severe (8-10) Protocol Piperacillin Sod/Tazobactam Sod 2.25 gm in 50 mls @ 100 mls/hr 12/11/16 16:30 12/12/16 00:35 Zosyn 2.25 Gm Iv Premix IVPB 100 mls/hr Q8H JENNA Administration Vancomycin/Sodium Chloride 1 gm in 200 mls @ 133 mls/hr 12/12/16 06:00 05:25 Vancocin IVPB 12/17/16 06:01 133 mls/hr Q24H JENNA Administration Phenylephrine HCl 30 mg/ 253 mls @ 15.18 mls/hr 12/11/16 20:51 12/12/16 06:30 Sodium Chloride IV 40 mcg/min .[id number] PRN 20.23 mls/hr TITRATE PER MD ORDER Titration Protocol 30 MCG/MIN Dextrose/Sodium Chloride 500 mls @ 40 mls/hr 12/11/16 22:36 12/11/16 23:30 Dextrose 5%-0.9% Ns 500 Ml IV 12/12/16 11:05 40 mls/hr .[id number] ONE Administration Insulin Human Regular 0 unit 12/11/16 22:45 12/12/16 05:50 Novolin R SC 2 unit Q6 JENNA Administration Protocol Mirtazapine 7.5 mg 12/11/16 22:00 12/11/16 22:00 Remeron PO Not Given HS [facility] Ondansetron HCl 4 mg 12/11/16 18:39 Zofran Inj IVP ONCE PRN Nausea/Vomiting Rosuvastatin Calcium 5 mg 12/11/16 22:00 12/11/16 22:00 Crestor PO Not Given HS JENNA - Patient Studies Lab Studies: Microbiology Studies 12/11/16 Unknown Gram Stain - Final Leg - Right Lab Studies 12/12/16 12/12/16 12/12/16 Range/Units 06:14 06:14 06:14 WBC 29.3 H D (4.8-10.8) K/uL RBC 3.61 L (3.80-5.20) Mil/uL Hgb 11.4 (11.0-16.0) g/dL Hct 32.3 L (34.0-47.0) % MCV 89.6 (81.0-99.0) fL MCH 31.5 H (27.0-31.0) pg MCHC 35.2 (33.0-37.0) g/dL RDW 16.7 H (11.5-14.5) % Plt Count 538 H (130-400) K/uL MPV 9.5 (7.2-11.7) fL Neut % (Auto) 86.7 H (50.0-75.0) % Lymph % (Auto) 5.5 L (20.0-40.0) % [place] % (Auto) 3.1 (0.0-10.0) % Eos % (Auto) 4.4 H (0.0-4.0) % Baso % (Auto) 0.3 (0.0-2.0) % Neut # 25.4 H (1.8-7.0) K/uL Lymph # 1.6 (1.0-4.3) K/uL [place] # 0.9 H (0.0-0.8) K/uL Eos # 1.3 H (0.0-0.7) K/uL Baso # 0.1 (0.0-0.2) K/uL Neutrophils % (Manual) 77 H (50-75) % Band Neutrophils % 10 H (0-2) % Lymphocytes % (Manual) 6 L (20-40) % Monocytes % (Manual) 2 (0-10) % Eosinophils % (Manual) 4 (0-4) % Metamyelocytes % 1 H (0-0) % Platelet Estimate Increased H (NORMAL) Anisocytosis (manual) Slight Sodium 136 (132-148) mmol/L Potassium 4.0 (3.6-5.2) mmol/L Chloride 96 L (98-107) mmol/L Carbon Dioxide 26 (22-30) mmol/L Anion Gap 18 (10-20) BUN 35 H (7-17) mg/dL Creatinine 5.6 H (0.7-1.2) MG/DL Est GFR ( Amer) 9 Est GFR (Non-Af Amer) 8 POC Glucose (mg/dL) (65-110) mg/dL Random Glucose 202 H (65-105) mg/dL Calcium 7.5 L (8.6-10.4) mg/dl Phosphorus 5.3 H (2.5-4.5) mg/dL Magnesium 2.0 (1.6-2.3) mg/dL Total Bilirubin 0.5 (0.2-1.3) mg/dL AST 44 H D (14-36) U/L ALT 23 (9-52) U/L Alkaline Phosphatase 95 (38-126) U/L Total Creatine Kinase (30-135) U/L CK-MB (Mass) (0.0-3.38) ng/mL Troponin I 0.0550 (0.00-0.120) ng/mL Troponin I, Quant (0.00-0.120) ng/mL Total Protein 6.1 L (6.3-8.3) g/dL Albumin 2.9 L (3.5-5.0) g/dL Globulin 3.2 (2.2-3.9) gm/dL Albumin/Globulin Ratio 0.9 L (1.0-2.1) 12/12/16 12/12/16 12/11/16 Range/Units 05:46 00:31 23:55 WBC (4.8-10.8) K/uL RBC (3.80-5.20) Mil/uL Hgb (11.0-16.0) g/dL Hct (34.0-47.0) % MCV (81.0-99.0) fL MCH (27.0-31.0) pg MCHC (33.0-37.0) g/dL RDW (11.5-14.5) % Plt Count (130-400) K/uL MPV (7.2-11.7) fL Neut % (Auto) (50.0-75.0) % Lymph % (Auto) (20.0-40.0) % [place] % (Auto) (0.0-10.0) % Eos % (Auto) (0.0-4.0) % Baso % (Auto) (0.0-2.0) % Neut # (1.8-7.0) K/uL Lymph # (1.0-4.3) K/uL [place] # (0.0-0.8) K/uL Eos # (0.0-0.7) K/uL Baso # (0.0-0.2) K/uL Neutrophils % (Manual) (50-75) % Band Neutrophils % (0-2) % Lymphocytes % (Manual) (20-40) % Monocytes % (Manual) (0-10) % Eosinophils % (Manual) (0-4) % Metamyelocytes % (0-0) % Platelet Estimate (NORMAL) Anisocytosis (manual) Sodium (132-148) mmol/L Potassium (3.6-5.2) mmol/L Chloride (98-107) mmol/L Carbon Dioxide (22-30) mmol/L Anion Gap (10-20) BUN (7-17) mg/dL Creatinine (0.7-1.2) MG/DL Est GFR ( Amer) Est GFR (Non-Af Amer) POC Glucose (mg/dL) 248 H 275 H (65-110) mg/dL Random Glucose (65-105) mg/dL Calcium (8.6-10.4) mg/dl Phosphorus (2.5-4.5) mg/dL Magnesium (1.6-2.3) mg/dL Total Bilirubin (0.2-1.3) mg/dL AST (14-36) U/L ALT (9-52) U/L Alkaline Phosphatase (38-126) U/L Total Creatine Kinase (30-135) U/L CK-MB (Mass) (0.0-3.38) ng/mL Troponin I 0.0310 (0.00-0.120) ng/mL Troponin I, Quant (0.00-0.120) ng/mL Total Protein (6.3-8.3) g/dL Albumin (3.5-5.0) g/dL Globulin (2.2-3.9) gm/dL Albumin/Globulin Ratio (1.0-2.1) 12/11/16 12/11/16 12/11/16 Range/Units 22:27 18:40 18:40 WBC (4.8-10.8) K/uL RBC (3.80-5.20) Mil/uL Hgb (11.0-16.0) g/dL Hct (34.0-47.0) % MCV (81.0-99.0) fL MCH (27.0-31.0) pg MCHC (33.0-37.0) g/dL RDW (11.5-14.5) % Plt Count (130-400) K/uL MPV (7.2-11.7) fL Neut % (Auto) (50.0-75.0) % Lymph % (Auto) (20.0-40.0) % [place] % (Auto) (0.0-10.0) % Eos % (Auto) (0.0-4.0) % Baso % (Auto) (0.0-2.0) % Neut # (1.8-7.0) K/uL Lymph # (1.0-4.3) K/uL [place] # (0.0-0.8) K/uL Eos # (0.0-0.7) K/uL Baso # (0.0-0.2) K/uL Neutrophils % (Manual) (50-75) % Band Neutrophils % (0-2) % Lymphocytes % (Manual) (20-40) % Monocytes % (Manual) (0-10) % Eosinophils % (Manual) (0-4) % Metamyelocytes % (0-0) % Platelet Estimate (NORMAL) Anisocytosis (manual) Sodium 134 (132-148) mmol/L Potassium 3.7 (3.6-5.2) mmol/L Chloride 94 L (98-107) mmol/L Carbon Dioxide 27 (22-30) mmol/L Anion Gap 17 (10-20) BUN 28 H (7-17) mg/dL Creatinine 4.9 H (0.7-1.2) MG/DL Est GFR ( Amer) 11 Est GFR (Non-Af Amer) 9 POC Glucose (mg/dL) 243 H (65-110) mg/dL Random Glucose 254 H (65-105) mg/dL Calcium 8.4 L (8.6-10.4) mg/dl Phosphorus 4.8 H (2.5-4.5) mg/dL Magnesium 2.2 (1.6-2.3) mg/dL Total Bilirubin (0.2-1.3) mg/dL AST (14-36) U/L ALT (9-52) U/L Alkaline Phosphatase (38-126) U/L Total Creatine Kinase 25 L (30-135) U/L CK-MB (Mass) 0.36 (0.0-3.38) ng/mL Troponin I (0.00-0.120) ng/mL Troponin I, Quant 0.0160 (0.00-0.120) ng/mL Total Protein (6.3-8.3) g/dL Albumin (3.5-5.0) g/dL Globulin (2.2-3.9) gm/dL Albumin/Globulin Ratio (1.0-2.1) 12/11/16 12/11/16 12/11/16 Range/Units 18:40 18:25 17:45 WBC 10.2 (4.8-10.8) K/uL RBC 4.25 (3.80-5.20) Mil/uL Hgb 12.0 (11.0-16.0) g/dL Hct 38.1 (34.0-47.0) % MCV 89.6 (81.0-99.0) fL MCH 28.3 (27.0-31.0) pg MCHC 31.6 L (33.0-37.0) g/dL RDW 16.5 H (11.5-14.5) % Plt Count 609 H D (130-400) K/uL MPV 8.9 (7.2-11.7) fL Neut % (Auto) (50.0-75.0) % Lymph % (Auto) (20.0-40.0) % [place] % (Auto) (0.0-10.0) % Eos % (Auto) (0.0-4.0) % Baso % (Auto) (0.0-2.0) % Neut # (1.8-7.0) K/uL Lymph # (1.0-4.3) K/uL [place] # (0.0-0.8) K/uL Eos # (0.0-0.7) K/uL Baso # (0.0-0.2) K/uL Neutrophils % (Manual) (50-75) % Band Neutrophils % (0-2) % Lymphocytes % (Manual) (20-40) % Monocytes % (Manual) (0-10) % Eosinophils % (Manual) (0-4) % Metamyelocytes % (0-0) % Platelet Estimate (NORMAL) Anisocytosis (manual) Sodium (132-148) mmol/L Potassium (3.6-5.2) mmol/L Chloride (98-107) mmol/L Carbon Dioxide (22-30) mmol/L Anion Gap (10-20) BUN (7-17) mg/dL Creatinine (0.7-1.2) MG/DL Est GFR ( Amer) Est GFR (Non-Af Amer) POC Glucose (mg/dL) 252 H 207 H (65-110) mg/dL Random Glucose (65-105) mg/dL Calcium (8.6-10.4) mg/dl Phosphorus (2.5-4.5) mg/dL Magnesium (1.6-2.3) mg/dL Total Bilirubin (0.2-1.3) mg/dL AST (14-36) U/L ALT (9-52) U/L Alkaline Phosphatase (38-126) U/L Total Creatine Kinase (30-135) U/L CK-MB (Mass) (0.0-3.38) ng/mL Troponin I (0.00-0.120) ng/mL Troponin I, Quant (0.00-0.120) ng/mL Total Protein (6.3-8.3) g/dL Albumin (3.5-5.0) g/dL Globulin (2.2-3.9) gm/dL Albumin/Globulin Ratio (1.0-2.1) Laboratory Results - last 24 hr 12/11/16 12/11/16 12/11/16 17:45 18:25 18:40 WBC 10.2 RBC 4.25 Hgb 12.0 Hct 38.1 MCV 89.6 MCH 28.3 MCHC 31.6 L RDW 16.5 H Plt Count 609 H D MPV 8.9 Neut % (Auto) Lymph % (Auto) [place] % (Auto) Eos % (Auto) Baso % (Auto) Neut # Lymph # [place] # Eos # Baso # Neutrophils % (Manual) Band Neutrophils % Lymphocytes % (Manual) Monocytes % (Manual) Eosinophils % (Manual) Metamyelocytes % Platelet Estimate Anisocytosis (manual) Sodium Potassium Chloride Carbon Dioxide Anion Gap BUN Creatinine Est GFR ( Amer) Est GFR (Non-Af Amer) POC Glucose (mg/dL) 207 H 252 H Random Glucose Calcium Phosphorus Magnesium Total Bilirubin AST ALT Alkaline Phosphatase Total Creatine Kinase CK-MB (Mass) Troponin I Troponin I, Quant Total Protein Albumin Globulin Albumin/Globulin Ratio 12/11/16 12/11/16 12/11/16 18:40 18:40 22:27 WBC RBC Hgb Hct MCV MCH MCHC RDW Plt Count MPV Neut % (Auto) Lymph % (Auto) [place] % (Auto) Eos % (Auto) Baso % (Auto) Neut # Lymph # [place] # Eos # Baso # Neutrophils % (Manual) Band Neutrophils % Lymphocytes % (Manual) Monocytes % (Manual) Eosinophils % (Manual) Metamyelocytes % Platelet Estimate Anisocytosis (manual) Sodium 134 Potassium 3.7 Chloride 94 L Carbon Dioxide 27 Anion Gap 17 BUN 28 H Creatinine 4.9 H Est GFR ( Amer) 11 Est GFR (Non-Af Amer) 9 POC Glucose (mg/dL) 243 H Random Glucose 254 H Calcium 8.4 L Phosphorus 4.8 H Magnesium 2.2 Total Bilirubin AST ALT Alkaline Phosphatase Total Creatine Kinase 25 L CK-MB (Mass) 0.36 Troponin I Troponin I, Quant 0.0160 Total Protein Albumin Globulin Albumin/Globulin Ratio 12/11/16 12/12/16 12/12/16 23:55 00:31 05:46 WBC RBC Hgb Hct MCV MCH MCHC RDW Plt Count MPV Neut % (Auto) Lymph % (Auto) [place] % (Auto) Eos % (Auto) Baso % (Auto) Neut # Lymph # [place] # Eos # Baso # Neutrophils % (Manual) Band Neutrophils % Lymphocytes % (Manual) Monocytes % (Manual) Eosinophils % (Manual) Metamyelocytes % Platelet Estimate Anisocytosis (manual) Sodium Potassium Chloride Carbon Dioxide Anion Gap BUN Creatinine Est GFR ( Amer) Est GFR (Non-Af Amer) POC Glucose (mg/dL) 275 H 248 H Random Glucose Calcium Phosphorus Magnesium Total Bilirubin AST ALT Alkaline Phosphatase Total Creatine Kinase CK-MB (Mass) Troponin I 0.0310 Troponin I, Quant Total Protein Albumin Globulin Albumin/Globulin Ratio 12/12/16 12/12/16 12/12/16 06:14 06:14 06:14 WBC 29.3 H D RBC 3.61 L Hgb 11.4 Hct 32.3 L MCV 89.6 MCH 31.5 H MCHC 35.2 RDW 16.7 H Plt Count 538 H MPV 9.5 Neut % (Auto) 86.7 H Lymph % (Auto) 5.5 L [place] % (Auto) 3.1 Eos % (Auto) 4.4 H Baso % (Auto) 0.3 Neut # 25.4 H Lymph # 1.6 [place] # 0.9 H Eos # 1.3 H Baso # 0.1 Neutrophils % (Manual) 77 H Band Neutrophils % 10 H Lymphocytes % (Manual) 6 L Monocytes % (Manual) 2 Eosinophils % (Manual) 4 Metamyelocytes % 1 H Platelet Estimate Increased H Anisocytosis (manual) Slight Sodium 136 Potassium 4.0 Chloride 96 L Carbon Dioxide 26 Anion Gap 18 BUN 35 H Creatinine 5.6 H Est GFR ( Amer) 9 Est GFR (Non-Af Amer) 8 POC Glucose (mg/dL) Random Glucose 202 H Calcium 7.5 L Phosphorus 5.3 H Magnesium 2.0 Total Bilirubin 0.5 AST 44 H D ALT 23 Alkaline Phosphatase 95 Total Creatine Kinase CK-MB (Mass) Troponin I 0.0550 Troponin I, Quant Total Protein 6.1 L Albumin 2.9 L Globulin 3.2 Albumin/Globulin Ratio 0.9 L EKG/Cardiology Studies: Cardiology / EKG Studies 12/11/16 19:17 EKG [ELECTROCARDIOGRAM] Stat Comment: Mode Of Transportation: BED Reason For Exam: Hypotension 12/12/16 08:00 EKG [ELECTROCARDIOGRAM] Routine Comment: Mode Of Transportation: BED Reason For Exam: chest pain Fingerstick Blood Sugar Results: 248 Review of Systems - EENT Eyes: absent: Blind Spots, Blurred Vision Ears: absent: Decreased Hearing, Tinnitus Nose/Mouth/Throat: absent: Nose Pain, Facial Pain, Neck Pain - Cardiovascular Cardiovascular: absent: Chest Pain, Orthopnea, Palpitations, Syncope - Respiratory Respiratory: absent: Cough, Dyspnea, Dyspnea on Exertion - Gastrointestinal Gastrointestinal: absent: Abdominal Pain, Constipation, Diarrhea, Nausea, Vomiting - Genitourinary Genitourinary: Other (anuric 2/2 to ESRD) - Musculoskeletal Musculoskeletal: Myalgias (pain about surgical site). absent: Arthralgias, Stiffness, Tingling - Integumentary Integumentary: Wounds (right foot surgical wound). absent: Lesions, Rash - Neurological Neurological: absent: Frequent Falls, Memory Loss, Sensory Deficit, Syncope, Tingling, Tremor, Vertigo, Weakness - Endocrine Endocrine: absent: Cold Intolorance, Heat Intolorance Critical Care Progress Note - Extremities/Vascular Does the Patient have a Central Venous Catheter?: Yes Insertion Site: Internal Jugular Vein (left) Does the Patient need a Central Venous Catheter?: Yes Does the Patient have a Escobar Catheter?: No Does the Patient need a Escobar Catheter?: No - Prophylaxis GI Prophylaxis GI: Not Indicated - Prophylaxis DVT Prophylaxis DVT: Heparin SQ - Nutrition Nutrition: Nutrition Category Date Time Status Heart Healthy Diet [DIET] Diets 12/12/16 Breakfast Active Assessment/Plan (1) Osteomyelitis Status: Acute (2) History of left above knee amputation Status: Acute (3) Infected open wound Status: Acute (4) Diabetic ulcer of lower leg Status: Acute (5) ESRD (end stage renal disease) Status: Acute (6) Type 2 diabetes mellitus with diabetic nephropathy Status: Acute (7) Diabetes mellitus Status: Chronic (8) HTN (hypertension) Status: Chronic - Assessment and Plan (Free Text) Plan: Patient Status: Hemodynamically Stable Neuro: -A&O x 3 -No acute issues Cardiovascular: -Hemodynamically Stable -Phenylephrine 40mcg -Arterial Line and Central TLC Access -Aspirin 81mg po hs -Plavix 75mg po daily -Crestor 5mg po hs Pulmonary: -Duonebs -Sating Well -No acute issues Gastrointestinal: -Heart healthy, Diabetic, Renal Dialysis Diet Renal: -ESRD on HD -Phoslo 667mg Genitourinary: -No Issues Musculoskeletal: -s/p Right Foot I&D -Left AKA -PT/OT Eval Endocrine: -DM -Accucheck ACHS -Insulin Sliding Scale Medium -Lantus 10u SC HS -Novolog 4u SC with meals Hematology: -No acute issues Infectious Disease: -Dr. Fajardo on consult -Code Sepsis 11:42a 12/12/16- elevated lactate (2.5) on ABG shock panel -Blood, Wound, Sputum Culture Pending -Vancomycin 1g IV Daily- day 2 -Zosyn 2.25g IV q12- day 2 -Flagyl 500mg IV q12- day 1 GI Prophylaxis: None DVT Prophylaxis: Heparin 5000u SC q12 [address] D[address] Dr[address] Sean Leigh PGY1 - Date & Time Date: 12/12/16 Time: 09:18 <Eleuterio Estrada - Last Filed: 12/16/16 17:42> CCU Objective - Patient Studies Lab Studies: Microbiology Studies 12/15/16 Unknown Gram Stain - Final Ankle - Right Wound Culture - Preliminary Gram Negative [place] Gram Positive Cocci 12/11/16 23:30 Blood Culture - Preliminary Blood NO GROWTH AFTER 4 DAYS Critical Care Progress Note - Nutrition Nutrition: Nutrition Category Date Time Status Heart Healthy Diet [DIET] Diets 12/12/16 Breakfast Active Attending/Attestation - Attestation I have personally seen and examined this patient.: Yes I have fully participated in the care of the patient.: Yes I have reviewed all pertinent clinical information: Yes Notes (Text): Today: Monday, December 12, 2016 The Patient was seen and examined at the bedside, Medical records reviewed, all clinical/lab/hemodynamic/radiographic data were reviewed and management issues were discussed and formulated, Pain issues, skin care, head of the bed elevation, GI/DVT prophylaxis, glycemic control were addressed. I discussed the plan of care with the resident and agree with the above history and physical and assessment/plans as transcribed in Dr. Leigh note
--- NOTE | 2016-12-12 10:58 | RAD ---
PROCEDURE: CHEST RADIOGRAPH, 1 VIEW HISTORY: central venous catheter position COMPARISON: 12/11/2016 at 10:31 p.m. FINDINGS: LUNGS: Clear. PLEURA: No pneumothorax or pleural fluid seen. CARDIOVASCULAR: Normal heart size. Right tunneled central venous dialysis catheter. Left internal jugular central venous catheter has been repositioned. Its tip appears to be in the left side of the thorax although the evaluation is limited by oblique positioning of the patient. This may be located in a brachiocephalic vessel vein. . OSSEOUS STRUCTURES: No significant abnormalities. VISUALIZED UPPER ABDOMEN: Normal. OTHER FINDINGS: None. IMPRESSION: Left central venous catheter position likely in left side of thorax, possibly an brachiocephalic vein. This is repositioned more proximally than on the prior examination of the same date.
--- NOTE | 2016-12-12 11:00 | CP.PCM.PN ---
Subjective - Date & Time of Evaluation Date of Evaluation: 12/12/16 Time of Evaluation: 10:56 - Subjective Subjective: 61 y/o female patient seen and evaluated at bedside in ICU for 1 day s/p Right lower extremity wound debridement. Patient was resting comfortably in bed. Patient was transferred to ICU yesterday after the surgery secondary to hypotension. Right lower extremity dressing was intact, clean and dry. Patient c /p severe pain at surgical site. Patient denies any symptoms of N/V/F/chest pain at this time. Objective - Vital Signs/Intake and Output Vital Signs (last 24 hours): Temp Pulse Resp BP Pulse Ox 98.1 F 73 15 98/48 L 100 12/12/16 04:00 12/12/16 07:01 12/12/16 07:01 12/12/16 07:01 12/12/16 07:01 Intake and Output: 12/12/16 12/12/16 06:59 18:59 Intake Total 992 220 Output Total 0 0 Balance 992 220 - Medications Medications: Current Medications Acetaminophen (Tylenol 325mg Tab) 650 mg PO STAT STA Stop: 12/12/16 10:56 Albuterol/Ipratropium (Duoneb 3 Mg/0.5 Mg (3 Ml) Ud) 3 ml IH RQ6 PRN PRN Reason: Shortness of Breath Last Admin: 12/11/16 18:23 Dose: 3 ml Aspirin (Ecotrin) 81 mg PO DAILY [facility] Last Admin: 12/12/16 09:53 Dose: 81 mg Calcium Acetate (Phoslo) 667 mg PO TIDCC [facility] Last Admin: 12/12/16 09:40 Dose: 667 mg Clopidogrel Bisulfate (Plavix) 75 mg PO DAILY [facility] Last Admin: 12/12/16 09:53 Dose: 75 mg Docusate Sodium (Colace) 100 mg PO HS [facility] Last Admin: 12/11/16 22:00 Dose: Not Given Escitalopram Oxalate (Lexapro) 10 mg PO DAILY [facility] Last Admin: 12/12/16 09:53 Dose: 10 mg Heparin Sodium (Porcine) (Heparin) 5,000 units SC Q8 [facility] Last Admin: 12/12/16 05:25 Dose: 5,000 units Piperacillin Sod/Tazobactam Sod (Zosyn 2.25 Gm Iv Premix) 2.25 gm in 50 mls @ 100 mls/hr IVPB Q8H [facility] Last Admin: 12/12/16 09:52 Dose: 100 mls/hr Vancomycin/Sodium Chloride (Vancocin) 1 gm in 200 mls @ 133 mls/hr IVPB Q24H [facility] Stop: 12/17/16 06:01 Last Admin: 12/12/16 05:25 Dose: 133 mls/hr Phenylephrine HCl 30 mg/ (Sodium Chloride) 253 mls @ 15.18 mls/hr IV .[id number] PRN; Protocol; 30 MCG/MIN PRN Reason: TITRATE PER MD ORDER Last Titration: 12/12/16 06:30 Dose: 40 mcg/min, 20.23 mls/hr Dextrose/Sodium Chloride (Dextrose 5%-0.9% Ns 500 Ml) 500 mls @ 40 mls/hr IV .[id number] ONE Stop: 12/12/16 11:05 Last Admin: 12/11/16 23:30 Dose: 40 mls/hr Insulin Aspart (Novolog) 4 unit SC AC [facility] Insulin Glargine (Lantus) 10 unit SC HS [facility] Insulin Human Regular (Novolin R) 0 unit SC Q6 JENNA PRN Reason: Protocol Mirtazapine (Remeron) 7.5 mg PO [facility] Last Admin: 12/11/16 22:00 Dose: Not Given Ondansetron HCl (Zofran Inj) 4 mg IVP ONCE PRN PRN Reason: Nausea/Vomiting Rosuvastatin Calcium (Crestor) 5 mg PO HS [facility] Last Admin: 12/11/16 22:00 Dose: Not Given - Labs Labs: 12/12/16 06:14 12/12/16 06:14 PT 12.6 SECONDS (9.7-12.2) H 12/11/16 13:45 INR 1.1 12/11/16 13:45 APTT 32 SECONDS (21-34) 12/11/16 13:45 - Constitutional Appears: Non-toxic, No Acute Distress - Extremities Exam Additional comments: Right lower extremity Vascular: DP and PT palpable, CFT is less than 3 seconds, mild RLE edema noted Derm: Open wound secondary to surgical debridement located to the posterior aspect of RLE, no signs of infection. mild active bleeding noted, no malodor, no purulent noted Ortho: Severe pain at surgical site Neuro: Protective sensation intact - Neurological Exam Neurological Exam: Alert, Awake - Psychiatric Exam Psychiatric exam: Normal Mood Assessment and Plan - Assessment and Plan (Free Text) Assessment: 61 y/o female patient with 1 day s/p posterior aspect of right lower extremity wound debridement Plan: Patient seen and evaluated at bedside in ICU All the questions and concerns were addressed RLE dressing was changed with Xeroform, ABD pads and Kerlix STAT Tylenol was ordered due to severe pain Discussed with attending Dr. Shi Labs and vitals were reviewed Podiatry will continue to follow while patient remains in house.
--- NOTE | 2016-12-12 11:21 | OP ---
PROCEDURE DATE: 12/11/2016 SURGEON: Dr. Manuelito Pritchard DPM. [facility] COUNSELOR: Dr. Daya Veliz DPM, PGY-1. ANESTHESIOLOGIST: Dr. Bassem FAGAN ANESTHESIA TYPE: IV sedation with local. PREOPERATIVE DIAGNOSIS: Right posterior leg superficial gangrene. POSTOPERATIVE DIAGNOSIS: Right posterior leg superficial gangrene. PROCEDURE PERFORMED: Right posterior leg wound debridement. INDICATIONS: The patient is a 61-year-old female with the above diagnosis. The patient has exhausted all conservative treatment at this time and now requires surgical intervention. The patient signed the consent after careful explanation of risks, benefits, complications and alternatives for surgical procedure. No guarantees were given nor implied. N.p.o. status was confirmed prior to taking the patient to the OR. PREPARATION: The patient was brought into the operating room and placed on the operating room table in a supine position. Time-out was performed for identification of the correct patient and procedure. After induction of IV sedation, a local block to the area consisting of a 1:1 mixture of 0.25% Marcaine plain and 2% lidocaine plain was given. Then, the right lower extremity was prepped and draped in a normal sterile manner and the procedure began. PROCEDURE #1: Right posterior leg wound debridement. Attention was directed to the right posterior leg where the superficial gangrene was noted. The ulcerative area measured approximately 7 cm x 5 cm. Using a VersaJet on power level 8, the base of the ulcer was non-excisionally debrided of all fibrotic, necrotic and nonviable tissue until healthy bleeding tissue and fascia appeared at the surgical site. Utilizing a #15 blade and pickups, the nonviable tissue was also excisionally debrided until healthy margins appeared and then passed off the surgical field. A wound culture was taken and the necrotic tissue was sent for pathology. The site was then irrigated with copious amounts of peroxide. All bleeders were cauterized as necessary. The site was then dressed with Xeroform, sterile gauze and Kerlix. POSTOPERATIVE CONDITION: The patient tolerated the anesthesia and procedure well and was escorted to recovery room with vital signs stable and neurovascular status intact to the right lower extremity. Podiatry will continue to follow patient in-house. DAYA BAPTISTEKamar CONNELLYM Manuelito Nice Miguel Angel Sheets DPM cc: [id number] TT: 12/12/2016 11:20:35 rn MTDD
[2016-12-12 11:22] LABS: DRAW SITE ALINE
--- NOTE | 2016-12-12 11:32 | RAD ---
HISTORY: Shortness of breath COMPARISON: 12/09/2016 at 1:47 p.m. FINDINGS: The right-sided dual lumen central venous catheter terminates in the right atrium. LUNGS: The lungs are well inflated and clear. There is interval improvement in pulmonary venous congestion. PLEURA: No significant pleural effusion identified, no pneumothorax apparent. CARDIOVASCULAR: The heart is normal in size. Atherosclerotic aortic arch calcifications are present. OSSEOUS STRUCTURES: No significant abnormalities. VISUALIZED UPPER ABDOMEN: Normal. OTHER FINDINGS: None. IMPRESSION: Improving pulmonary venous congestion. No acute findings.
--- NOTE | 2016-12-12 11:53 | PCM.SEPTIC ---
Sepsis Progress Note - Reassessment Type Date of Evaluation: 12/12/16 Time of Evaluation: 11:50 Reassessment Type: Non-invasive reassessment - Non Invasive Reassessment Were the most recent vital sign reviewed: Yes Vital Sign (Latest): Temp Pulse Resp BP Pulse Ox 99 F 96 H 17 110/62 100 12/12/16 08:00 12/12/16 11:01 12/12/16 11:01 12/12/16 11:01 12/12/16 11:01 Cardiovascular: Yes: Regular Rate, Rhythm, Chest Non Tender. No: Edema, JVD, Bradycardia, Tachycardia, Irregularly Irregular Respiratory: Yes: Normal Breath Sounds. No: Decreased Breath Sounds, Accessory Muscle Use, Crackles, Rales, Rhonchi, Stridor, Wheezing, Respiratory Distress Capillary Refill: Normal (Less than 2 sec) Pulses: Normal Radial, Decreased Dorsalis Pedis, Decreased Posterior Tibialis Skin: Normal Color, Warm, Dry - Invasive Reassessment (complete 2 of 4) Was a Central Venous Pressure Measurement obtained within 6 Hours after the presentation of septic shock: No Was a central venous oxygen measurement obtained within 6 hours after the presentation of septic shock: No Was a bedside cardiovascular ultrasound performed within 6 hours after the presentation of septic shock: No Was a passive leg raise performed or was a fluid challenge performed within 6 hrs of the initial fluid bolus: No Fluid Challenge performed: No
[2016-12-12] MEDS: (Novolog) Insulin Aspart, Recombinant 100 u/ml 10 ml vial SC SCH ×2 (12:14→16:33)
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
[2016-12-12] MEDS: metroNIDAZOLE IV 500 mg/100 ml 500 MG/100 ML BAG IVPB SCH (13:02)
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
--- NOTE | 2016-12-12 17:43 | CARD ---
APPROVED REPORT EKG Measurement Heart [id number] CT [id number] <Conclusion> Normal sinus rhythm Possible Inferior infarct, age undetermined Abnormal ECG
--- NOTE | 2016-12-12 21:32 | CON ---
DATE: 12/12/2016 HISTORY OF PRESENT ILLNESS: The patient is a 61-year-old woman who has been on maintenance hemodialysis with debridement of the right lower extremity. Postop, she became hypotensive and was f ound to have a high lactate level. She had a code sepsis called. She was given IV fluids and presso rs. Now, she is being seen because she needs dialysis Thursday, Thursday, and Thursday. PAST MEDICAL HISTORY: Peripheral arterial disease. She is status post left lower extremity amputati on. She has end-stage renal disease, has been on maintenance hemodialysis for approximately 1 month, diabetic nephropathy, hypertension, dyslipidemia, asthma, status post cerebrovascular accident, and osteomyelitis of the left lower extremity. PAST SURGICAL HISTORY: Left AKA, dialysis port catheter, left AV fistula, and cholecystectomy. FAMILY HISTORY: Unknown. SOCIAL HISTORY: Never smoked. No history of illicit drugs or alcohol abuse. MEDICATIONS AT HOME: Included lisinopril, Crestor, albuterol, Lexapro, PhosLo, Plavix. Now she is o n IV vancomycin and IV Zosyn for possible sepsis. REVIEW OF SYSTEMS: The patient is mostly bedbound and does get dyspneic with exertion. No nausea, v omiting. Has poor appetite in general she is often depressed. No rashes, no visual disturbanc es. She does have decreased vision, but no hearing deficits. PHYSICAL EXAMINATION: GENERAL: She is a well-developed woman who is seen in the ICU. VITAL SIGNS: Blood pressure 110/57, pulse 85, temperature 98.1, pulse ox is 100% on 3 liters nasal c annula. HEENT: She is anicteric. Mouth was clear. NECK: No JVD. LUNGS: Lung marion were clear. HEART: Regular rhythm. No murmur appreciated. ABDOMEN: Soft, benign, no masses. EXTREMITIES: She had a left AV fistula in place. She had a left hemiparesis. She had a dialysis cat heter in place as well. She had a left AKA and no new edema. LABORATORY DATA: Blood work showed potassium 4, BUN 35, creatinine 5.6, white count 29.3, hemoglobin 11.4. IMPRESSION: Possible sepsis, status post right lower extremity debridement for peripheral vascular d isease and osteomyelitis, wound care. She has end-stage renal disease, status post cerebrovascular a ccident in the past, diabetic nephropathy, , dyslipidemia, history of asthma, and history of ost eomyelitis. PLAN: Will be for dialysis on Thursday, Thursday, Thursday. We will follow up dialysis needs and she i s on IV antibiotics and she is being followed by infectious disease for possible sepsis. Carlos Salinas MD cc: [id number] TT: 12/12/2016 21:32:24 Confirmation # [id number] Dictation # [id number] ln
[2016-12-12] MEDS: (Lantus) Insulin Glargine, Recombinant SC SCH (22:20)
[2016-12-13] MEDS ORDERED: Oxycodone/Acetaminophen 5/325 mg Tab PO STA (00:44)
[2016-12-13] MEDS: (Novolin R) Insulin Human Regular 100 units/ml vial SC SCH ×5 (00:50→23:00)
[2016-12-13] MEDS: metroNIDAZOLE IV 500 mg/100 ml 500 MG/100 ML BAG IVPB SCH ×2 (00:59→12:59)
[2016-12-13] MEDS: Piperacill/Tazo 2.25gm in Dex 2.25 GM/50 ML BAG IVPB SCH ×3 (01:00→18:09)
[2016-12-13 06:38] LABS: INR 1.2
[2016-12-13 06:39] LABS: BASO # 0.1 K/uL (0.0-0.2); BASO % 0.5 % (0.0-2.0); EOS # 2.4 K/uL (0.0-0.7); EOS % 18.2 % (0.0-4.0); HEMATOCRIT 29.6 % (34.0-47.0); LYMPH # 2.1 K/uL (1.0-4.3); LYMPH % 15.9 % (20.0-40.0); MEAN CELL VOLUME 90.1 fL (81.0-99.0); MEAN CORPUSCULAR HEMOGLOBIN 28.7 pg (27.0-31.0); MEAN CORPUSCULAR HGB CONC 31.8 g/dL (33.0-37.0); MEAN PLATELET VOLUME 8.6 fL (7.2-11.7); MONO # 0.6 K/uL (0.0-0.8); MONO % 4.9 % (0.0-10.0); NRBC % 0.1 % (0.0-2.0); RED CELL DISTRIBUTION WIDTH 16.7 % (11.5-14.5); WHITE BLOOD COUNT 12.9 K/uL (4.8-10.8)
[2016-12-13 06:53] LABS: POTASSIUM 3.7 mmol/L (3.6-5.2)
[2016-12-13 06:55] LABS: BILIRUBIN,TOTAL 0.4 mg/dL (0.2-1.3)
[2016-12-13 06:56] LABS: ALB/GLOB RATIO 0.8 (1.0-2.1); CALCIUM 7.3 mg/dl (8.6-10.4); MAGNESIUM 1.9 mg/dL (1.6-2.3); PHOSPHOROUS 3.6 mg/dL (2.5-4.5); TOTAL PROTEIN 6.2 g/dL (6.3-8.3)
[2016-12-13] MEDS: (Novolog) Insulin Aspart, Recombinant 100 u/ml 10 ml vial SC SCH ×3 (09:13→17:31)
[2016-12-13] MEDS ORDERED: Vancomycin 1 gm/NS 200 ml 1 GM/200 ML BAG IVPB SCH (10:00)
--- NOTE | 2016-12-13 10:57 | CP.PCM.PN ---
Subjective - Date & Time of Evaluation Date of Evaluation: 12/13/16 Time of Evaluation: 10:55 - Subjective Subjective: Patient is a 61 year old female with PMHx of ESRD on HD, DM, HTN, HLD, Asthma, CVA, osteomyelitis to left lower extremity who presents to the hospital via EMS from [facility] for right lower extremity wound. Patient states the wound has been present for many months but she is unsure exactly how long. Patient states the wound is very painful to touch and has been purulent. Patient reports three days of chills but denies fever. Patient admits to nausea and vomiting once. Patient denies chest pain but states she does feel sometimes that she is having trouble breathing due to her asthma. Patient states she is compliant with her dialysis. Feels ok this am Pain at tlc insertion site Pain at debridement site No other complaints Tolerated HD well yesterday ROS : 10 point negative except as above PMHx: PMHx of ESRD on HD, DM, HTN, HLD, Asthma, CVA, osteomyelitis, depression Meds: plavix 75, pepcid, mirtazapine 7.5, lisinopril 5mg, HCTZ 25mg, lexapro 10mg, colace 100HS, crestor 5mg, phoslo 667 TIDCC, norvasc 5mg, asa 81mg, duonebs q6, RISS PSHx: cholecystectomy, left AKA, dialysis port and Left AVF Family History: patient not aware Social: reports never having used tobacco, drugs, alcohol. s/p code sepsis 12/11- had high lactate levels and hypotension. Objective - Vital Signs/Intake and Output Vital Signs (last 24 hours): Temp Pulse Resp BP Pulse Ox 99.3 F 80 15 131/49 L 100 12/13/16 06:51 12/13/16 07:27 12/13/16 07:27 12/13/16 07:27 12/13/16 07:27 Intake and Output: 12/13/16 12/13/16 06:59 18:59 Intake Total 535 15 Output Total 0 0 Balance 535 15 - Medications Medications: Current Medications Acetaminophen (Tylenol 325mg Tab) 650 mg PO Q6 PRN PRN Reason: Pain, moderate (4-7) Last Admin: 12/13/16 06:51 Dose: 650 mg Albuterol/Ipratropium (Duoneb 3 Mg/0.5 Mg (3 Ml) Ud) 3 ml IH RQ6 PRN PRN Reason: Shortness of Breath Last Admin: 12/11/16 18:23 Dose: 3 ml Aspirin (Ecotrin) 81 mg PO DAILY [facility] Last Admin: 12/13/16 10:00 Dose: 81 mg Calcium Acetate (Phoslo) 667 mg PO TIDCC [facility] Last Admin: 12/13/16 10:00 Dose: 667 mg Clopidogrel Bisulfate (Plavix) 75 mg PO DAILY [facility] Last Admin: 12/13/16 10:00 Dose: 75 mg Docusate Sodium (Colace) 100 mg PO HS [facility] Last Admin: 12/12/16 22:18 Dose: 100 mg Escitalopram Oxalate (Lexapro) 10 mg PO DAILY [facility] Last Admin: 12/13/16 10:00 Dose: 10 mg Heparin Sodium (Porcine) (Heparin) 5,000 units SC Q8 [facility] Last Admin: 12/13/16 06:29 Dose: 5,000 units Piperacillin Sod/Tazobactam Sod (Zosyn 2.25 Gm Iv Premix) 2.25 gm in 50 mls @ 100 mls/hr IVPB Q8H [facility] Last Admin: 12/13/16 10:02 Dose: 100 mls/hr Phenylephrine HCl 30 mg/ (Sodium Chloride) 253 mls @ 15.18 mls/hr IV .[id number] PRN; Protocol; 30 MCG/MIN PRN Reason: TITRATE PER MD ORDER Last Titration: 12/13/16 07:07 Dose: 9.88 mcg/min, 5 mls/hr Metronidazole (Flagyl) 500 mg in 100 mls @ 100 mls/hr IVPB Q12H [facility] Last Admin: 12/13/16 00:59 Dose: 100 mls/hr Vancomycin/Sodium Chloride (Vancocin) 1 gm in 200 mls @ 133.333 mls/hr IVPB TTS [facility] Stop: 12/23/16 11:29 Last Admin: 12/13/16 10:03 Dose: 133.333 mls/hr Insulin Aspart (Novolog) 4 unit SC AC [facility] Last Admin: 12/13/16 09:13 Dose: Not Given Insulin Glargine (Lantus) 10 unit SC HS [facility] Last Admin: 12/12/16 22:20 Dose: 10 u Insulin Human Regular (Novolin R) 0 unit SC Q6 JENNA PRN Reason: Protocol Last Admin: 12/13/16 06:49 Dose: Not Given Mirtazapine (Remeron) 7.5 mg PO [facility] Last Admin: 12/12/16 22:23 Dose: 7.5 mg Ondansetron HCl (Zofran Inj) 4 mg IVP ONCE PRN PRN Reason: Nausea/Vomiting Rosuvastatin Calcium (Crestor) 5 mg PO [facility] Last Admin: 12/12/16 22:18 Dose: 5 mg - Labs Labs: 12/13/16 06:26 12/13/16 06:24 PT 12.9 SECONDS (9.7-12.2) H 12/13/16 06:26 INR 1.2 12/13/16 06:26 APTT 30 SECONDS (21-34) 12/13/16 06:26 - Constitutional Appears: Well, Non-toxic - Head Exam Head Exam: ATRAUMATIC, NORMAL INSPECTION - Eye Exam Eye Exam: EOMI, Normal appearance - ENT Exam ENT Exam: Mucous Membranes Moist, Normal Oropharynx - Respiratory Exam Respiratory Exam: Clear to Ausculation Bilateral. absent: Rhonchi, Wheezes - Cardiovascular Exam Cardiovascular Exam: REGULAR RHYTHM, +S1, +S2. absent: JVD - GI/Abdominal Exam GI & Abdominal Exam: Soft, Normal Bowel Sounds - Extremities Exam Extremities Exam: Pedal Edema Additional comments: pain at debridement site - Neurological Exam Neurological Exam: Alert, Awake - Skin Skin Exam: Normal Color, Warm Assessment and Plan (1) Diabetic ulcer of lower leg Status: Acute (2) ESRD (end stage renal disease) Status: Acute (3) History of left above knee amputation Status: Acute (4) Septic shock Status: Acute (5) Diabetes mellitus Status: Chronic (6) HTN (hypertension) Status: Chronic (7) Cellulitis Status: Acute - Assessment and Plan (Free Text) Assessment: Tolerating dialysis well Electrolytes acceptable BP stable Abx as ordered Continue supportive care
--- NOTE | 2016-12-13 11:02 | CP.PCM.PN ---
Subjective - Date & Time of Evaluation Date of Evaluation: 12/13/16 Time of Evaluation: 11:00 - Subjective Subjective: 61 y/o female patient S&E at bedside this AM in ICU 2 days s/p right lower extremity wound debridement. Pt seen resting comfortably in bed at time of visit. Pt does complain of severe pain to the leg today, says the Tylenol only helps somewhat. Of note, patient was transferred to ICU following surgery on 12/11 secondary to hypotension episode. Nursing denies any acute events overnight. Dressing appears c/d/i to the right leg. Denies f/n/v/c/sob/cp at this time. Objective - Vital Signs/Intake and Output Vital Signs (last 24 hours): Temp Pulse Resp BP Pulse Ox 99.3 F 80 15 131/49 L 100 12/13/16 06:51 12/13/16 07:27 12/13/16 07:27 12/13/16 07:27 12/13/16 07:27 Intake and Output: 12/13/16 12/13/16 06:59 18:59 Intake Total 535 15 Output Total 0 0 Balance 535 15 - Medications Medications: Current Medications Acetaminophen (Tylenol 325mg Tab) 650 mg PO Q6 PRN PRN Reason: Pain, moderate (4-7) Last Admin: 12/13/16 06:51 Dose: 650 mg Albuterol/Ipratropium (Duoneb 3 Mg/0.5 Mg (3 Ml) Ud) 3 ml IH RQ6 PRN PRN Reason: Shortness of Breath Last Admin: 12/11/16 18:23 Dose: 3 ml Aspirin (Ecotrin) 81 mg PO DAILY [facility] Last Admin: 12/13/16 10:00 Dose: 81 mg Calcium Acetate (Phoslo) 667 mg PO TIDCC [facility] Last Admin: 12/13/16 10:00 Dose: 667 mg Clopidogrel Bisulfate (Plavix) 75 mg PO DAILY [facility] Last Admin: 12/13/16 10:00 Dose: 75 mg Docusate Sodium (Colace) 100 mg PO HS [facility] Last Admin: 12/12/16 22:18 Dose: 100 mg Escitalopram Oxalate (Lexapro) 10 mg PO DAILY [facility] Last Admin: 12/13/16 10:00 Dose: 10 mg Heparin Sodium (Porcine) (Heparin) 5,000 units SC Q8 [facility] Last Admin: 12/13/16 06:29 Dose: 5,000 units Piperacillin Sod/Tazobactam Sod (Zosyn 2.25 Gm Iv Premix) 2.25 gm in 50 mls @ 100 mls/hr IVPB Q8H [facility] Last Admin: 12/13/16 10:02 Dose: 100 mls/hr Phenylephrine HCl 30 mg/ (Sodium Chloride) 253 mls @ 15.18 mls/hr IV .[id number] PRN; Protocol; 30 MCG/MIN PRN Reason: TITRATE PER MD ORDER Last Titration: 12/13/16 07:07 Dose: 9.88 mcg/min, 5 mls/hr Metronidazole (Flagyl) 500 mg in 100 mls @ 100 mls/hr IVPB Q12H [facility] Last Admin: 12/13/16 00:59 Dose: 100 mls/hr Vancomycin/Sodium Chloride (Vancocin) 1 gm in 200 mls @ 133.333 mls/hr IVPB TTS [facility] Stop: 12/23/16 11:29 Last Admin: 12/13/16 10:03 Dose: 133.333 mls/hr Insulin Aspart (Novolog) 4 unit SC AC [facility] Last Admin: 12/13/16 09:13 Dose: Not Given Insulin Glargine (Lantus) 10 unit SC [facility] Last Admin: 12/12/16 22:20 Dose: 10 u Insulin Human Regular (Novolin R) 0 unit SC Q6 JENNA PRN Reason: Protocol Last Admin: 12/13/16 06:49 Dose: Not Given Mirtazapine (Remeron) 7.5 mg PO [facility] Last Admin: 12/12/16 22:23 Dose: 7.5 mg Ondansetron HCl (Zofran Inj) 4 mg IVP ONCE PRN PRN Reason: Nausea/Vomiting Rosuvastatin Calcium (Crestor) 5 mg PO HS [facility] Last Admin: 12/12/16 22:18 Dose: 5 mg - Labs Labs: 12/13/16 06:26 12/13/16 06:24 PT 12.9 SECONDS (9.7-12.2) H 12/13/16 06:26 INR 1.2 12/13/16 06:26 APTT 30 SECONDS (21-34) 12/13/16 06:26 - Constitutional Appears: Non-toxic, No Acute Distress - Extremities Exam Additional comments: Right lower extremity Vascular: DP and PT palpable, CFT is less than 3 seconds, mild RLE edema noted Derm: open wound secondary to surgical debridement located to the posterior aspect of RLE, no signs of infection. mild active bleeding noted, no malodor, no purulent noted Ortho: Severe pain at surgical site Neuro: Protective sensation intact - Neurological Exam Neurological Exam: Alert, Awake, Oriented x3 - Psychiatric Exam Psychiatric exam: Normal Affect, Normal Mood Assessment and Plan - Assessment and Plan (Free Text) Assessment: 61 y/o female patient with 2 days s/p posterior aspect of right lower extremity wound debridement Plan: Patient seen and evaluated at bedside in ICU Plan discussed with Dr. Pritchard in detail RLE dressing was changed with Xeroform, ABD pads and Kerlix Labs and vitals were reviewed Discussed with nurse, pt will be taken off pressors this AM to monitor BP, if stable will start Morphine 2 mg for pain Podiatry will continue to follow while patient remains in house.
--- NOTE | 2016-12-13 11:15 | CP.PCM.PN ---
Subjective - Date & Time of Evaluation Date of Evaluation: 12/13/16 Time of Evaluation: 17:00 - Subjective Subjective: Dr. Flores progress note: Patient is seen in ICU. She is post op of debridement from Dr. Shi. She reports no fever, chills, nausea, vomiting, shortness of breath, and her pain is well controlled as well. Objective - Vital Signs/Intake and Output Vital Signs (last 24 hours): Temp Pulse Resp BP Pulse Ox 99.3 F 80 15 131/49 L 100 12/13/16 06:51 12/13/16 07:27 12/13/16 07:27 12/13/16 07:27 12/13/16 07:27 Intake and Output: 12/13/16 12/13/16 06:59 18:59 Intake Total 535 20 Output Total 0 60 Balance 535 -40 - Medications Medications: Current Medications Acetaminophen (Tylenol 325mg Tab) 650 mg PO Q6 PRN PRN Reason: Pain, moderate (4-7) Last Admin: 12/13/16 06:51 Dose: 650 mg Albuterol/Ipratropium (Duoneb 3 Mg/0.5 Mg (3 Ml) Ud) 3 ml IH RQ6 PRN PRN Reason: Shortness of Breath Last Admin: 12/11/16 18:23 Dose: 3 ml Aspirin (Ecotrin) 81 mg PO DAILY [facility] Last Admin: 12/13/16 10:00 Dose: 81 mg Calcium Acetate (Phoslo) 667 mg PO TIDCC [facility] Last Admin: 12/13/16 10:00 Dose: 667 mg Clopidogrel Bisulfate (Plavix) 75 mg PO DAILY [facility] Last Admin: 12/13/16 10:00 Dose: 75 mg Docusate Sodium (Colace) 100 mg PO HS [facility] Last Admin: 12/12/16 22:18 Dose: 100 mg Escitalopram Oxalate (Lexapro) 10 mg PO DAILY [facility] Last Admin: 12/13/16 10:00 Dose: 10 mg Heparin Sodium (Porcine) (Heparin) 5,000 units SC Q8 [facility] Last Admin: 12/13/16 06:29 Dose: 5,000 units Piperacillin Sod/Tazobactam Sod (Zosyn 2.25 Gm Iv Premix) 2.25 gm in 50 mls @ 100 mls/hr IVPB Q8H [facility] Last Admin: 12/13/16 10:02 Dose: 100 mls/hr Phenylephrine HCl 30 mg/ (Sodium Chloride) 253 mls @ 15.18 mls/hr IV .[id number] PRN; Protocol; 30 MCG/MIN PRN Reason: TITRATE PER MD ORDER Last Titration: 12/13/16 07:07 Dose: 9.88 mcg/min, 5 mls/hr Metronidazole (Flagyl) 500 mg in 100 mls @ 100 mls/hr IVPB Q12H [facility] Last Admin: 12/13/16 00:59 Dose: 100 mls/hr Vancomycin/Sodium Chloride (Vancocin) 1 gm in 200 mls @ 133.333 mls/hr IVPB TTS [facility] Stop: 12/23/16 11:29 Last Admin: 12/13/16 10:03 Dose: 133.333 mls/hr Insulin Aspart (Novolog) 4 unit SC AC [facility] Last Admin: 12/13/16 09:13 Dose: Not Given Insulin Glargine (Lantus) 10 unit SC [facility] Last Admin: 12/12/16 22:20 Dose: 10 u Insulin Human Regular (Novolin R) 0 unit SC Q6 [facility] PRN Reason: Protocol Last Admin: 12/13/16 06:49 Dose: Not Given Mirtazapine (Remeron) 7.5 mg PO [facility] Last Admin: 12/12/16 22:23 Dose: 7.5 mg Ondansetron HCl (Zofran Inj) 4 mg IVP ONCE PRN PRN Reason: Nausea/Vomiting Rosuvastatin Calcium (Crestor) 5 mg PO [facility] Last Admin: 12/12/16 22:18 Dose: 5 mg - Labs Labs: 12/13/16 06:26 12/13/16 06:24 PT 12.9 SECONDS (9.7-12.2) H 12/13/16 06:26 INR 1.2 12/13/16 06:26 APTT 30 SECONDS (21-34) 12/13/16 06:26 - Constitutional Appears: Non-toxic, No Acute Distress - Head Exam Head Exam: NORMAL INSPECTION - Eye Exam Eye Exam: Normal appearance - ENT Exam ENT Exam: Normal Exam - Respiratory Exam Respiratory Exam: Clear to Ausculation Bilateral. absent: Rales, Rhonchi, Wheezes - Cardiovascular Exam Cardiovascular Exam: REGULAR RHYTHM, RRR, +S1, +S2. absent: Gallop, Rubs - GI/Abdominal Exam GI & Abdominal Exam: Soft, Normal Bowel Sounds. absent: Tenderness - Extremities Exam Additional comments: right LE shows a AKA and left shows a dressing with no drainage. - Back Exam Back Exam: NORMAL INSPECTION - Neurological Exam Neurological Exam: Oriented x3 - Psychiatric Exam Psychiatric exam: Normal Affect, Normal Mood - Skin Skin Exam: Warm Assessment and Plan - Assessment and Plan (Free Text) Assessment: (1) Osteomyelitis Current Visit: Yes Status: Acute Patient is post with Miguel Angel Gonzalez, have put in orders for discharge for 7 days of IV Zosyn and 7 days of IV Vancomyin. She will also need a wound vac with black foam set a 100 mm of Hg. (2) History of left above knee amputation Current Visit: Yes Status: Acute (3) Infected open wound Current Visit: Yes Status: Acute (4) Diabetic ulcer of lower leg Current Visit: Yes Status: Acute (5) ESRD (end stage renal disease) Current Visit: Yes Status: Acute (6) Type 2 diabetes mellitus with diabetic nephropathy Current Visit: Yes Status: Acute (7) Diabetes mellitus Current Visit: Yes Status: Chronic (8) HTN (hypertension) Current Visit: Yes Status: Chronic
--- NOTE | 2016-12-13 13:20 | CP.CCUPN ---
CCU Subjective - Physician Review Events Since Last Encounter (Free Text): 12/13/16 13:16 Patient seen and examined in the intensive care unit. Case discussed with house staff in the morning rounds. Status post debridement of right foot wound complicated by hypotension and transferred to ICU.patient off pressors, she is still complaining of pain Awake and responsive Patient is out of bed to chair Being treated for sepsis CCU Objective - Vital Signs / Intake & Output Vital Signs (Last 4 hours): Vital Signs Pulse Resp BP 12/13/16 11:00 88 15 12/13/16 10:27 84 13 149/62 12/13/16 09:27 85 13 146/62 Intake and Output (Last 8hrs): Intake & Output 12/12/16 12/13/16 12/13/16 22:59 06:59 14:59 Intake Total 450 455 390 Output Total 0 0 0 Balance 450 455 390 Weight 161 lb 6.054 oz Intake: IV 240 185 10 Intake, IV Amount 210 270 270 Left Distal Port Internal 50 150 250 Jugular Left Proximal Port 160 120 20 Internal Jugular Oral 110 Output: Urine 0 0 0 Urine, Voided 0 0 0 Stool 0 0 0 - Physical Exam Head: Positive for: Atraumatic, Normocephalic Pupils: Positive for: PERRL Extroacular Muscles: Positive for: EOMI Conjunctiva: Positive for: Normal Mouth: Positive for: Moist Mucous Membranes. Negative for: Drooling Neck: Negative for: JVD, Lymphadenopathy Respiratory/Chest: Positive for: Clear to Auscultation, Good Air Exchange. Negative for: Respiratory Distress, Accessory Muscle Use, Decreased Breath Sounds, Rales, Rhonchi Cardiovascular: Positive for: Regular Rate and Rhythm, Normal S1, S2, Peripheal Pulses Present (diminished 1+ B/L). Negative for: Murmurs Abdomen: Positive for: Normal Bowel Sounds. Negative for: Tenderness, Distention, Peritoneal Signs, Rebound, Guarding Upper Extremity: Positive for: Normal Inspection, Normal ROM, NORMAL PULSES, Neurovascularly Intact. Negative for: Cyanosis, Edema Lower Extremity: Negative for: Normal Inspection (Left AKA, right foot dressed C /D/I) - Medications Active Medications: Active Medications Generic Name Dose Route Start Last Admin Trade Name Freq PRN Reason Stop Dose Admin Acetaminophen 650 mg 12/12/16 18:20 12/13/16 06:51 Tylenol 325mg Tab PO 650 mg Q6 PRN Administration Pain, moderate (4-7) Albuterol/Ipratropium 3 ml 12/11/16 16:30 12/11/16 18:23 Duoneb 3 Mg/0.5 Mg (3 Ml) Ud IH 3 ml RQ6 PRN Administration Shortness of Breath Aspirin 81 mg 12/12/16 10:00 12/13/16 10:00 Ecotrin PO 81 mg DAILY [facility] Administration Calcium Acetate 667 mg 12/11/16 17:00 12/13/16 12:59 Phoslo PO 667 mg TIDCC [facility] Administration Clopidogrel Bisulfate 75 mg 12/12/16 10:00 12/13/16 10:00 Plavix PO 75 mg DAILY [facility] Administration Docusate Sodium 100 mg 12/11/16 22:00 12/12/16 22:18 Colace PO 100 mg HS [facility] Administration Escitalopram Oxalate 10 mg 12/12/16 10:00 12/13/16 10:00 Lexapro PO 10 mg DAILY [facility] Administration Heparin Sodium (Porcine) 5,000 units 12/12/16 06:00 12/13/16 12:59 Heparin SC 5,000 units Q8 [facility] Administration Piperacillin Sod/Tazobactam Sod 2.25 gm in 50 mls @ 100 mls/hr 12/11/16 16:30 12/13/16 10:02 Zosyn 2.25 Gm Iv Premix IVPB 100 mls/hr Q8H [facility] Administration Phenylephrine HCl 30 mg/ 253 mls @ 15.18 mls/hr 12/11/16 20:51 12/13/16 07:07 Sodium Chloride IV 9.88 mcg/min .[id number] PRN 5 mls/hr TITRATE PER MD ORDER Titration Protocol 30 MCG/MIN Metronidazole 500 mg in 100 mls @ 100 mls/hr 12/12/16 13:00 12/13/16 12:59 Flagyl IVPB 100 mls/hr Q12H [facility] Administration Vancomycin/Sodium Chloride 1 gm in 200 mls @ 133.333 mls/hr 12/13/16 10:00 10:03 Vancocin IVPB 12/23/16 11:29 133.333 mls/hr TTS [facility] Administration Insulin Aspart 4 unit 12/12/16 11:30 12/13/16 13:00 Novolog SC 4 unit AC [facility] Administration Insulin Glargine 10 unit 12/12/16 22:00 12/12/16 22:20 Lantus SC 10 u HS [facility] Administration Insulin Human Regular 0 unit 12/12/16 09:30 12/13/16 13:00 Novolin R SC 2 unit Q6 [facility] Administration Protocol Mirtazapine 7.5 mg 12/11/16 22:00 12/12/16 22:23 Remeron PO 7.5 mg HS [facility] Administration Ondansetron HCl 4 mg 12/11/16 18:39 Zofran Inj IVP ONCE PRN Nausea/Vomiting Rosuvastatin Calcium 5 mg 12/11/16 22:00 12/12/16 22:18 Crestor PO 5 mg HS [facility] Administration - Patient Studies Lab Studies: Microbiology Studies 12/11/16 23:30 Blood Culture - Preliminary Blood NO GROWTH AFTER 24 HOURS 12/11/16 Unknown Gram Stain - Final Leg - Right Wound Culture - Preliminary Gram Negative [place] Staphylococcus Aureus Lab Studies 12/13/16 12/13/16 12/13/16 Range/Units 12:12 06:47 06:26 WBC (4.8-10.8) K/uL RBC (3.80-5.20) Mil/uL Hgb (11.0-16.0) g/dL Hct (34.0-47.0) % MCV (81.0-99.0) fL MCH (27.0-31.0) pg MCHC (33.0-37.0) g/dL RDW (11.5-14.5) % Plt Count (130-400) K/uL MPV (7.2-11.7) fL Neut % (Auto) (50.0-75.0) % Lymph % (Auto) (20.0-40.0) % [place] % (Auto) (0.0-10.0) % Eos % (Auto) (0.0-4.0) % Baso % (Auto) (0.0-2.0) % Neut # (1.8-7.0) K/uL Lymph # (1.0-4.3) K/uL [place] # (0.0-0.8) K/uL Eos # (0.0-0.7) K/uL Baso # (0.0-0.2) K/uL PT 12.9 H (9.7-12.2) SECONDS INR 1.2 APTT 30 (21-34) SECONDS Sodium (132-148) mmol/L Potassium (3.6-5.2) mmol/L Chloride (98-107) mmol/L Carbon Dioxide (22-30) mmol/L Anion Gap (10-20) BUN (7-17) mg/dL Creatinine (0.7-1.2) MG/DL Est GFR ( Amer) Est GFR (Non-Af Amer) POC Glucose (mg/dL) 197 H 122 H (65-110) mg/dL Random Glucose (65-105) mg/dL Lactic Acid (0.7-2.1) mmol/L Calcium (8.6-10.4) mg/dl Phosphorus (2.5-4.5) mg/dL Magnesium (1.6-2.3) mg/dL Total Bilirubin (0.2-1.3) mg/dL AST (14-36) U/L ALT (9-52) U/L Alkaline Phosphatase (38-126) U/L Total Protein (6.3-8.3) g/dL Albumin (3.5-5.0) g/dL Globulin (2.2-3.9) gm/dL Albumin/Globulin Ratio (1.0-2.1) 12/13/16 12/13/16 12/12/16 Range/Units 06:26 06:24 21:49 WBC 12.9 H D (4.8-10.8) K/uL RBC 3.28 L (3.80-5.20) Mil/uL Hgb 9.4 L D (11.0-16.0) g/dL Hct 29.6 L (34.0-47.0) % MCV 90.1 (81.0-99.0) fL MCH 28.7 (27.0-31.0) pg MCHC 31.8 L (33.0-37.0) g/dL RDW 16.7 H (11.5-14.5) % Plt Count 403 H D (130-400) K/uL MPV 8.6 (7.2-11.7) fL Neut % (Auto) 60.5 (50.0-75.0) % Lymph % (Auto) 15.9 L (20.0-40.0) % [place] % (Auto) 4.9 (0.0-10.0) % Eos % (Auto) 18.2 H (0.0-4.0) % Baso % (Auto) 0.5 (0.0-2.0) % Neut # 7.8 H (1.8-7.0) K/uL Lymph # 2.1 (1.0-4.3) K/uL [place] # 0.6 (0.0-0.8) K/uL Eos # 2.4 H (0.0-0.7) K/uL Baso # 0.1 (0.0-0.2) K/uL PT (9.7-12.2) SECONDS INR APTT (21-34) SECONDS Sodium 136 (132-148) mmol/L Potassium 3.7 (3.6-5.2) mmol/L Chloride 98 (98-107) mmol/L Carbon Dioxide 29 (22-30) mmol/L Anion Gap 13 (10-20) BUN 17 (7-17) mg/dL Creatinine 4.1 H (0.7-1.2) MG/DL Est GFR ( Amer) 13 Est GFR (Non-Af Amer) 11 POC Glucose (mg/dL) 184 H (65-110) mg/dL Random Glucose 110 H (65-105) mg/dL Lactic Acid (0.7-2.1) mmol/L Calcium 7.3 L (8.6-10.4) mg/dl Phosphorus 3.6 (2.5-4.5) mg/dL Magnesium 1.9 (1.6-2.3) mg/dL Total Bilirubin 0.4 (0.2-1.3) mg/dL AST 38 H (14-36) U/L ALT 32 (9-52) U/L Alkaline Phosphatase 87 (38-126) U/L Total Protein 6.2 L (6.3-8.3) g/dL Albumin 2.6 L (3.5-5.0) g/dL Globulin 3.5 (2.2-3.9) gm/dL Albumin/Globulin Ratio 0.8 L (1.0-2.1) 12/12/16 12/12/16 12/12/16 Range/Units 18:06 16:32 14:43 WBC (4.8-10.8) K/uL RBC (3.80-5.20) Mil/uL Hgb (11.0-16.0) g/dL Hct (34.0-47.0) % MCV (81.0-99.0) fL MCH (27.0-31.0) pg MCHC (33.0-37.0) g/dL RDW (11.5-14.5) % Plt Count (130-400) K/uL MPV (7.2-11.7) fL Neut % (Auto) (50.0-75.0) % Lymph % (Auto) (20.0-40.0) % [place] % (Auto) (0.0-10.0) % Eos % (Auto) (0.0-4.0) % Baso % (Auto) (0.0-2.0) % Neut # (1.8-7.0) K/uL Lymph # (1.0-4.3) K/uL [place] # (0.0-0.8) K/uL Eos # (0.0-0.7) K/uL Baso # (0.0-0.2) K/uL PT (9.7-12.2) SECONDS INR APTT (21-34) SECONDS Sodium (132-148) mmol/L Potassium (3.6-5.2) mmol/L Chloride (98-107) mmol/L Carbon Dioxide (22-30) mmol/L Anion Gap (10-20) BUN (7-17) mg/dL Creatinine (0.7-1.2) MG/DL Est GFR ( Amer) Est GFR (Non-Af Amer) POC Glucose (mg/dL) 154 H 147 H (65-110) mg/dL Random Glucose (65-105) mg/dL Lactic Acid 1.8 (0.7-2.1) mmol/L Calcium (8.6-10.4) mg/dl Phosphorus (2.5-4.5) mg/dL Magnesium (1.6-2.3) mg/dL Total Bilirubin (0.2-1.3) mg/dL AST (14-36) U/L ALT (9-52) U/L Alkaline Phosphatase (38-126) U/L Total Protein (6.3-8.3) g/dL Albumin (3.5-5.0) g/dL Globulin (2.2-3.9) gm/dL Albumin/Globulin Ratio (1.0-2.1) Laboratory Results - last 24 hr 12/12/16 12/12/16 12/12/16 14:43 16:32 18:06 WBC RBC Hgb Hct MCV MCH MCHC RDW Plt Count MPV Neut % (Auto) Lymph % (Auto) [place] % (Auto) Eos % (Auto) Baso % (Auto) Neut # Lymph # [place] # Eos # Baso # PT INR APTT Sodium Potassium Chloride Carbon Dioxide Anion Gap BUN Creatinine Est GFR ( Amer) Est GFR (Non-Af Amer) POC Glucose (mg/dL) 147 H 154 H Random Glucose Lactic Acid 1.8 Calcium Phosphorus Magnesium Total Bilirubin AST ALT Alkaline Phosphatase Total Protein Albumin Globulin Albumin/Globulin Ratio 12/12/16 12/13/16 12/13/16 21:49 06:24 06:26 WBC 12.9 H D RBC 3.28 L Hgb 9.4 L D Hct 29.6 L MCV 90.1 MCH 28.7 MCHC 31.8 L RDW 16.7 H Plt Count 403 H D MPV 8.6 Neut % (Auto) 60.5 Lymph % (Auto) 15.9 L [place] % (Auto) 4.9 Eos % (Auto) 18.2 H Baso % (Auto) 0.5 Neut # 7.8 H Lymph # 2.1 [place] # 0.6 Eos # 2.4 H Baso # 0.1 PT INR APTT Sodium 136 Potassium 3.7 Chloride 98 Carbon Dioxide 29 Anion Gap 13 BUN 17 Creatinine 4.1 H Est GFR ( Amer) 13 Est GFR (Non-Af Amer) 11 POC Glucose (mg/dL) 184 H Random Glucose 110 H Lactic Acid Calcium 7.3 L Phosphorus 3.6 Magnesium 1.9 Total Bilirubin 0.4 AST 38 H ALT 32 Alkaline Phosphatase 87 Total Protein 6.2 L Albumin 2.6 L Globulin 3.5 Albumin/Globulin Ratio 0.8 L 12/13/16 12/13/16 12/13/16 06:26 06:47 12:12 WBC RBC Hgb Hct MCV MCH MCHC RDW Plt Count MPV Neut % (Auto) Lymph % (Auto) [place] % (Auto) Eos % (Auto) Baso % (Auto) Neut # Lymph # [place] # Eos # Baso # PT 12.9 H INR 1.2 APTT 30 Sodium Potassium Chloride Carbon Dioxide Anion Gap BUN Creatinine Est GFR ( Amer) Est GFR (Non-Af Amer) POC Glucose (mg/dL) 122 H 197 H Random Glucose Lactic Acid Calcium Phosphorus Magnesium Total Bilirubin AST ALT Alkaline Phosphatase Total Protein Albumin Globulin Albumin/Globulin Ratio Fingerstick Blood Sugar Results: 122 Review of Systems - Review of Systems All systems: reviewed and no additional remarkable complaints except ( Complaining of pain) Critical Care Progress Note - Nutrition Nutrition: Nutrition Category Date Time Status Heart Healthy Diet [DIET] Diets 12/12/16 Breakfast Active Assessment/Plan (1) Diabetic ulcer of lower leg Current Visit: Yes Status: Acute Comment: Status post debridement of right lower extremity wound Culture positive for gram-negative rods and staph aureus Continue antibiotics per infectious disease Pain medication as needed Patient is off pressors Transfer patient to floor (2) ESRD (end stage renal disease) Current Visit: Yes Status: Acute (3) Osteomyelitis Current Visit: Yes Status: Acute
--- NOTE | 2016-12-13 14:09 | CP.PCM.PN ---
Subjective - Date & Time of Evaluation Date of Evaluation: 12/13/16 Time of Evaluation: 14:09 - Subjective Subjective: # POD 2. S/P DEBRIMENT AND DRAINAGE ABSCESS RT LEG WOUND. 99.3 VSS BP 130/60. AWAKE C/O PAIN RT. LE. DRESSING C/D/I LAB; WBC 12.9 IMPROVING. WOUND CULTURE +VE ENTEROBACTER CLOACAE /STAPH.AUREUS (MSSA ) ON IV ZOSYN ON IV VANCOMYCIN 1GM POST HD (CHANGED TO MWF ) Objective - Vital Signs/Intake and Output Vital Signs (last 24 hours): Temp Pulse Resp BP Pulse Ox 98.2 F 88 15 149/62 79 L 12/13/16 08:00 12/13/16 11:00 12/13/16 11:00 12/13/16 10:27 12/13/16 08:27 Intake and Output: 12/13/16 12/13/16 06:59 18:59 Intake Total 535 390 Output Total 0 0 Balance 535 390 - Medications Medications: Current Medications Acetaminophen (Tylenol 325mg Tab) 650 mg PO Q6 PRN PRN Reason: Pain, moderate (4-7) Last Admin: 12/13/16 06:51 Dose: 650 mg Albuterol/Ipratropium (Duoneb 3 Mg/0.5 Mg (3 Ml) Ud) 3 ml IH RQ6 PRN PRN Reason: Shortness of Breath Last Admin: 12/11/16 18:23 Dose: 3 ml Aspirin (Ecotrin) 81 mg PO DAILY [facility] Last Admin: 12/13/16 10:00 Dose: 81 mg Calcium Acetate (Phoslo) 667 mg PO TIDCC [facility] Last Admin: 12/13/16 12:59 Dose: 667 mg Clopidogrel Bisulfate (Plavix) 75 mg PO DAILY [facility] Last Admin: 12/13/16 10:00 Dose: 75 mg Docusate Sodium (Colace) 100 mg PO HS [facility] Last Admin: 12/12/16 22:18 Dose: 100 mg Escitalopram Oxalate (Lexapro) 10 mg PO DAILY [facility] Last Admin: 12/13/16 10:00 Dose: 10 mg Heparin Sodium (Porcine) (Heparin) 5,000 units SC Q8 [facility] Last Admin: 12/13/16 12:59 Dose: 5,000 units Piperacillin Sod/Tazobactam Sod (Zosyn 2.25 Gm Iv Premix) 2.25 gm in 50 mls @ 100 mls/hr IVPB Q8H [facility] Last Admin: 12/13/16 10:02 Dose: 100 mls/hr Phenylephrine HCl 30 mg/ (Sodium Chloride) 253 mls @ 15.18 mls/hr IV .[id number] PRN; Protocol; 30 MCG/MIN PRN Reason: TITRATE PER MD ORDER Last Titration: 12/13/16 07:07 Dose: 9.88 mcg/min, 5 mls/hr Metronidazole (Flagyl) 500 mg in 100 mls @ 100 mls/hr IVPB Q12H [facility] Last Admin: 12/13/16 12:59 Dose: 100 mls/hr Vancomycin/Sodium Chloride (Vancocin) 1 gm in 200 mls @ 133.333 mls/hr IVPB TTS [facility] Stop: 12/23/16 11:29 Last Admin: 12/13/16 10:03 Dose: 133.333 mls/hr Insulin Aspart (Novolog) 4 unit SC AC [facility] Last Admin: 12/13/16 13:00 Dose: 4 unit Insulin Glargine (Lantus) 10 unit SC HS [facility] Last Admin: 12/12/16 22:20 Dose: 10 u Insulin Human Regular (Novolin R) 0 unit SC Q6 [facility] PRN Reason: Protocol Last Admin: 12/13/16 13:00 Dose: 2 unit Mirtazapine (Remeron) 7.5 mg PO HS [facility] Last Admin: 12/12/16 22:23 Dose: 7.5 mg Morphine Sulfate (Morphine) 2 mg IV Q6 PRN PRN Reason: Pain, moderate (4-7) Ondansetron HCl (Zofran Inj) 4 mg IVP ONCE PRN PRN Reason: Nausea/Vomiting Rosuvastatin Calcium (Crestor) 5 mg PO HS [facility] Last Admin: 12/12/16 22:18 Dose: 5 mg - Labs Labs: 12/13/16 06:26 12/13/16 06:24 PT 12.9 SECONDS (9.7-12.2) H 12/13/16 06:26 INR 1.2 12/13/16 06:26 APTT 30 SECONDS (21-34) 12/13/16 06:26 - Constitutional Appears: No Acute Distress - Head Exam Head Exam: NORMAL INSPECTION - Eye Exam Eye Exam: EOMI, PERRL - ENT Exam ENT Exam: Normal Oropharynx - Neck Exam Neck Exam: Normal Inspection - Respiratory Exam Respiratory Exam: Clear to Ausculation Bilateral - Cardiovascular Exam Cardiovascular Exam: REGULAR RHYTHM, +S1, +S2 - GI/Abdominal Exam GI & Abdominal Exam: Soft, Normal Bowel Sounds. absent: Organomegaly - Extremities Exam Extremities Exam: Pedal Edema (LT. AKA. RT.LE IN DRESSING POST.OPERATIVE.) - Neurological Exam Neurological Exam: Alert, Awake, CN II-XII Intact - Psychiatric Exam Psychiatric exam: Normal Mood - Skin Skin Exam: Normal Color, Warm Assessment and Plan (1) Septic shock Assessment & Plan: PT. OFF PRESSORS CONTINUE iv ZOSYN 2.25 EVERY 8 HOURLY 12/11/16. ON iv VANCOMYCIN 1 G POST-EACH HEMODIALYSIS MWF X 5 DOSES. 12/11/16 MONITOR VANCO TROUGH LEVEL ON THE 3RD DOSE IN AM.AND KEEP LEVELS BETWEEN 10 AND 20. ON IV fLAGYL 500 MG EVERY 12 HOURLY. 12/12/16 Status: Acute (2) Diabetic ulcer of lower leg Assessment & Plan: POD# 2 S/P I& D 12/11/16 LWC PER SURGERY. Status: Acute (3) ESRD (end stage renal disease) Status: Acute (4) Diabetes mellitus Status: Chronic (5) HTN (hypertension) Status: Chronic (6) CVA (cerebrovascular accident) Status: Acute (7) History of left above knee amputation Status: Acute
[2016-12-13] MEDS: (Lantus) Insulin Glargine, Recombinant SC SCH (22:01)
[2016-12-14] MEDS: Piperacill/Tazo 2.25gm in Dex 2.25 GM/50 ML BAG IVPB SCH ×4 (00:21→18:43)
[2016-12-14] MEDS: metroNIDAZOLE IV 500 mg/100 ml 500 MG/100 ML BAG IVPB SCH ×2 (00:22→12:45)
[2016-12-14] MEDS: (Novolin R) Insulin Human Regular 100 units/ml vial SC SCH ×4 (07:30→21:50)
[2016-12-14] MEDS ORDERED: Dextrose 50% SYRINGE Inj (50 ml) IV STA (07:39)
--- NOTE | 2016-12-14 08:23 | CP.PCM.PN ---
Subjective - Date & Time of Evaluation Date of Evaluation: 12/14/16 Time of Evaluation: 11:45 - Subjective Subjective: Dr. Flores progress note: Patient seen and examined in room. She has her right leg in dressing with some drainage but no fever, chills, nausea, vomiting, chest pain or shortness of breath. She also says her pain is well controlled. Objective - Vital Signs/Intake and Output Vital Signs (last 24 hours): Temp Pulse Resp BP Pulse Ox 99 F 74 18 149/53 L 99 12/14/16 04:00 12/14/16 04:00 12/14/16 04:00 12/14/16 04:00 12/14/16 04:00 Intake and Output: 12/14/16 12/14/16 06:59 18:59 Intake Total 270 Output Total 0 Balance 270 - Medications Medications: Current Medications Acetaminophen (Tylenol 325mg Tab) 650 mg PO Q6 PRN PRN Reason: Pain, moderate (4-7) Last Admin: 12/13/16 06:51 Dose: 650 mg Albuterol/Ipratropium (Duoneb 3 Mg/0.5 Mg (3 Ml) Ud) 3 ml IH RQ6 PRN PRN Reason: Shortness of Breath Last Admin: 12/11/16 18:23 Dose: 3 ml Aspirin (Ecotrin) 81 mg PO DAILY [facility] Last Admin: 12/13/16 10:00 Dose: 81 mg Calcium Acetate (Phoslo) 667 mg PO TIDCC [facility] Last Admin: 12/13/16 18:08 Dose: 667 mg Clopidogrel Bisulfate (Plavix) 75 mg PO DAILY [facility] Last Admin: 12/13/16 10:00 Dose: 75 mg Docusate Sodium (Colace) 100 mg PO HS [facility] Last Admin: 12/13/16 22:01 Dose: 100 mg Escitalopram Oxalate (Lexapro) 10 mg PO DAILY [facility] Last Admin: 12/13/16 10:00 Dose: 10 mg Heparin Sodium (Porcine) (Heparin) 5,000 units SC Q8 [facility] Last Admin: 12/14/16 06:37 Dose: 5,000 units Piperacillin Sod/Tazobactam Sod (Zosyn 2.25 Gm Iv Premix) 2.25 gm in 50 mls @ 100 mls/hr IVPB Q8H [facility] Last Admin: 12/14/16 00:21 Dose: 100 mls/hr Phenylephrine HCl 30 mg/ (Sodium Chloride) 253 mls @ 15.18 mls/hr IV .[id number] PRN; Protocol; 30 MCG/MIN PRN Reason: TITRATE PER MD ORDER Last Titration: 12/13/16 07:07 Dose: 9.88 mcg/min, 5 mls/hr Metronidazole (Flagyl) 500 mg in 100 mls @ 100 mls/hr IVPB Q12H [facility] Last Admin: 12/14/16 00:22 Dose: 100 mls/hr Vancomycin/Sodium Chloride (Vancocin) 1 gm in 200 mls @ 133 mls/hr IVPB MWF [facility] Stop: 12/24/16 10:31 Insulin Aspart (Novolog) 4 unit SC [facility] Last Admin: 12/13/16 17:31 Dose: Not Given Insulin Glargine (Lantus) 10 unit SC [facility] Last Admin: 12/13/16 22:01 Dose: 10 u Insulin Human Regular (Novolin R) 0 unit SC [facility] PRN Reason: Protocol Last Admin: 12/14/16 07:30 Dose: Not Given Mirtazapine (Remeron) 7.5 mg PO [facility] Last Admin: 12/13/16 22:01 Dose: 7.5 mg Morphine Sulfate (Morphine) 2 mg IVP Q6 PRN PRN Reason: Pain, moderate (4-7) Mupirocin (Bactroban 2% Nasal) 0.5 gm LEESA BID [facility] Ondansetron HCl (Zofran Inj) 4 mg IVP ONCE PRN PRN Reason: Nausea/Vomiting Rosuvastatin Calcium (Crestor) 5 mg PO [facility] Last Admin: 12/13/16 22:01 Dose: 5 mg - Labs Labs: 12/13/16 06:26 12/13/16 06:24 PT 12.9 SECONDS (9.7-12.2) H 12/13/16 06:26 INR 1.2 12/13/16 06:26 APTT 30 SECONDS (21-34) 12/13/16 06:26 - Constitutional Appears: Non-toxic, No Acute Distress - Head Exam Head Exam: NORMAL INSPECTION - Eye Exam Eye Exam: Normal appearance, PERRL Pupil Exam: NORMAL ACCOMODATION - ENT Exam ENT Exam: Normal Exam - Respiratory Exam Respiratory Exam: Clear to Ausculation Bilateral. absent: Rhonchi, Wheezes - Cardiovascular Exam Cardiovascular Exam: REGULAR RHYTHM, RRR, +S1, +S2. absent: Gallop, Rubs - GI/Abdominal Exam GI & Abdominal Exam: Soft, Normal Bowel Sounds. absent: Tenderness - Extremities Exam Extremities Exam: Normal Inspection. absent: Pedal Edema Additional comments: left leg is AKA and right has a dressing with a moderate amount of drainage. - Back Exam Back Exam: NORMAL INSPECTION - Psychiatric Exam Psychiatric exam: Normal Affect, Normal Mood - Skin Skin Exam: Normal Color Assessment and Plan - Assessment and Plan (Free Text) Assessment: 1) Osteomyelitis Current Visit: Yes Status: Acute 12/14: Discharge order is in, pending [facility]. Patient is post with [facility], have put in orders for discharge for 7 days of IV Zosyn and 7 days of IV Vancomyin. She will also need a wound vac with black foam set a 100 mm of Hg. (2) History of left above knee amputation Current Visit: Yes Status: Acute (3) Infected open wound Current Visit: Yes Status: Acute (4) Diabetic ulcer of lower leg Current Visit: Yes Status: Acute (5) ESRD (end stage renal disease) Current Visit: Yes Status: Acute (6) Type 2 diabetes mellitus with diabetic nephropathy Current Visit: Yes Status: Acute (7) Diabetes mellitus Current Visit: Yes Status: Chronic (8) HTN (hypertension) Current Visit: Yes Status: Chronic
[2016-12-14] MEDS: (Novolog) Insulin Aspart, Recombinant 100 u/ml 10 ml vial SC SCH ×3 (08:58→17:41)
[2016-12-14] MEDS: Mupirocin 2% Ointment (NASAL) NAS SCH ×2 (09:46→17:41)
--- NOTE | 2016-12-14 12:34 | CP.PCM.PN ---
Subjective - Date & Time of Evaluation Date of Evaluation: 12/14/16 Time of Evaluation: 12:00 - Subjective Subjective: PODIATRY PROGRESS NOTE for DR. PRITCHARD: 61 y/o female patient S&E at bedside this AM in ICU 3 days s/p right lower extremity wound debridement. Pt seen resting comfortably in the bedside chair at time of visit. Appears AAOx3 and in NAD. Nursing denies any acute events overnight however there was heavy drainage from the wound yesterday. Continues to complain of pain to the leg wound however she does say the morphine is helping today. Jessys f/n/v/c/sob/cp at this time. Objective - Vital Signs/Intake and Output Vital Signs (last 24 hours): Temp Pulse Resp BP Pulse Ox 98.6 F 82 14 157/63 H 98 12/14/16 12:00 12/14/16 12:00 12/14/16 12:00 12/14/16 12:00 12/14/16 12:00 Intake and Output: 12/14/16 12/14/16 06:59 18:59 Intake Total 270 300 Output Total 0 Balance 270 300 - Medications Medications: Current Medications Acetaminophen (Tylenol 325mg Tab) 650 mg PO Q6 PRN PRN Reason: Pain, moderate (4-7) Last Admin: 12/13/16 06:51 Dose: 650 mg Albuterol/Ipratropium (Duoneb 3 Mg/0.5 Mg (3 Ml) Ud) 3 ml IH RQ6 PRN PRN Reason: Shortness of Breath Last Admin: 12/11/16 18:23 Dose: 3 ml Aspirin (Ecotrin) 81 mg PO DAILY [facility] Last Admin: 12/14/16 09:06 Dose: 81 mg Calcium Acetate (Phoslo) 667 mg PO TIDCC [facility] Last Admin: 12/14/16 09:06 Dose: 667 mg Clopidogrel Bisulfate (Plavix) 75 mg PO DAILY [facility] Last Admin: 12/14/16 09:06 Dose: 75 mg Docusate Sodium (Colace) 100 mg PO HS [facility] Last Admin: 12/13/16 22:01 Dose: 100 mg Escitalopram Oxalate (Lexapro) 10 mg PO DAILY [facility] Last Admin: 12/14/16 09:06 Dose: 10 mg Heparin Sodium (Porcine) (Heparin) 5,000 units SC Q8 [facility] Last Admin: 12/14/16 06:37 Dose: 5,000 units Piperacillin Sod/Tazobactam Sod (Zosyn 2.25 Gm Iv Premix) 2.25 gm in 50 mls @ 100 mls/hr IVPB Q8H [facility] Last Admin: 12/14/16 09:07 Dose: 100 mls/hr Phenylephrine HCl 30 mg/ (Sodium Chloride) 253 mls @ 15.18 mls/hr IV .[id number] PRN; Protocol; 30 MCG/MIN PRN Reason: TITRATE PER MD ORDER Last Titration: 12/13/16 07:07 Dose: 9.88 mcg/min, 5 mls/hr Metronidazole (Flagyl) 500 mg in 100 mls @ 100 mls/hr IVPB Q12H [facility] Last Admin: 12/14/16 00:22 Dose: 100 mls/hr Vancomycin/Sodium Chloride (Vancocin) 1 gm in 200 mls @ 133 mls/hr IVPB MWF [facility] Stop: 12/24/16 10:31 Insulin Aspart (Novolog) 4 unit SC [facility] Last Admin: 12/14/16 12:30 Dose: Not Given Insulin Glargine (Lantus) 10 unit SC [facility] Last Admin: 12/13/16 22:01 Dose: 10 u Insulin Human Regular (Novolin R) 0 unit SC [facility] PRN Reason: Protocol Last Admin: 12/14/16 12:29 Dose: Not Given Mirtazapine (Remeron) 7.5 mg PO [facility] Last Admin: 12/13/16 22:01 Dose: 7.5 mg Morphine Sulfate (Morphine) 2 mg IVP Q6 PRN PRN Reason: Pain, moderate (4-7) Last Admin: 12/14/16 09:04 Dose: 2 mg Mupirocin (Bactroban 2% Nasal) 0.5 gm LEESA BID [facility] Last Admin: 12/14/16 09:46 Dose: Not Given Ondansetron HCl (Zofran Inj) 4 mg IVP ONCE PRN PRN Reason: Nausea/Vomiting Rosuvastatin Calcium (Crestor) 5 mg PO [facility] Last Admin: 12/13/16 22:01 Dose: 5 mg - Labs Labs: 12/13/16 06:26 12/13/16 06:24 PT 12.9 SECONDS (9.7-12.2) H 12/13/16 06:26 INR 1.2 12/13/16 06:26 APTT 30 SECONDS (21-34) 12/13/16 06:26 - Constitutional Appears: Non-toxic, No Acute Distress - Extremities Exam Additional comments: Right lower extremity Vascular: DP and PT palpable, CFT is less than 3 seconds, mild RLE edema noted Derm: open wound secondary to surgical debridement located to the posterior aspect of RLE, no signs of infection, heavy sero-sanguinous drainage is noted to bandage, no active bleeding noted today, no malodor, no purulence, wound bed appears 80% granular today. Ortho: Severe pain on palpation of surgical site Neuro: Protective sensation intact - Neurological Exam Neurological Exam: Alert, Awake, Oriented x3 - Psychiatric Exam Psychiatric exam: Normal Affect, Normal Mood Assessment and Plan - Assessment and Plan (Free Text) Assessment: 61 y/o female patient with 3 days s/p posterior aspect of right lower extremity wound debridement Plan: Patient seen and evaluated at bedside in ICU Plan discussed with Dr. Pritchard in detail Chart labs and vitals reviewed: afebrile Right leg wound cleansed with sterile normal saline and dressed with xeroform, ABD pads and kerlix c/w IV abx per ID pain meds per primary team (tylenol and morphine) Discussed plan with primary team, pt is for potential transfer to medical floor and possible [facility] Pt will require [facility] vac at [facility] (100 mm Hg) to be changed every 3 days Stable per podiatry service. Will continue to follow while she is in house.
[2016-12-14] MEDS: (Lantus) Insulin Glargine, Recombinant SC SCH (21:57)
[2016-12-15] MEDS: metroNIDAZOLE IV 500 mg/100 ml 500 MG/100 ML BAG IVPB SCH ×2 (00:08→14:05)
[2016-12-15] MEDS: Piperacill/Tazo 2.25gm in Dex 2.25 GM/50 ML BAG IVPB SCH ×3 (00:35→16:57)
[2016-12-15] MEDS: (Novolin R) Insulin Human Regular 100 units/ml vial SC SCH ×3 (07:44→16:56)
[2016-12-15] MEDS: (Novolog) Insulin Aspart, Recombinant 100 u/ml 10 ml vial SC SCH (07:45)
[2016-12-15] MEDS ORDERED: Vancomycin 1 gm/NS 200 ml 1 GM/200 ML BAG IVPB SCH (09:00)
--- NOTE | 2016-12-15 10:54 | CP.PCM.PN ---
Subjective - Date & Time of Evaluation Date of Evaluation: 12/15/16 Time of Evaluation: 10:47 - Subjective Subjective: Seen on dialysis now; has had increased pain in L\LE. Tolerating dialysis well so far. Off pressors Hg decreased- will start ESAs and check iron stores. Objective - Vital Signs/Intake and Output Vital Signs (last 24 hours): Temp Pulse Resp BP Pulse Ox 98.1 F 85 12 95/55 L 95 12/15/16 09:25 12/15/16 09:20 12/15/16 09:20 12/15/16 10:10 12/15/16 09:25 Intake and Output: 12/15/16 12/15/16 06:59 18:59 Intake Total 250 Output Total 100 Balance 150 - Medications Medications: Current Medications Acetaminophen (Tylenol 325mg Tab) 650 mg PO Q6 PRN PRN Reason: Pain, moderate (4-7) Last Admin: 12/13/16 06:51 Dose: 650 mg Albuterol/Ipratropium (Duoneb 3 Mg/0.5 Mg (3 Ml) Ud) 3 ml IH RQ6 PRN PRN Reason: Shortness of Breath Last Admin: 12/11/16 18:23 Dose: 3 ml Aspirin (Ecotrin) 81 mg PO DAILY [facility] Last Admin: 12/15/16 10:40 Dose: 81 mg Calcium Acetate (Phoslo) 667 mg PO TIDCC [facility] Last Admin: 12/14/16 17:46 Dose: 667 mg Clopidogrel Bisulfate (Plavix) 75 mg PO DAILY [facility] Last Admin: 12/15/16 10:40 Dose: 75 mg Docusate Sodium (Colace) 100 mg PO HS [facility] Last Admin: 12/14/16 21:48 Dose: Not Given Escitalopram Oxalate (Lexapro) 10 mg PO DAILY [facility] Last Admin: 12/15/16 10:40 Dose: 10 mg Piperacillin Sod/Tazobactam Sod (Zosyn 2.25 Gm Iv Premix) 2.25 gm in 50 mls @ 100 mls/hr IVPB Q8H [facility] Last Admin: 12/15/16 08:47 Dose: 100 mls/hr Phenylephrine HCl 30 mg/ (Sodium Chloride) 253 mls @ 15.18 mls/hr IV .[id number] PRN; Protocol; 30 MCG/MIN PRN Reason: TITRATE PER MD ORDER Last Titration: 12/13/16 07:07 Dose: 9.88 mcg/min, 5 mls/hr Metronidazole (Flagyl) 500 mg in 100 mls @ 100 mls/hr IVPB Q12H [facility] Last Admin: 12/15/16 00:08 Dose: 100 mls/hr Vancomycin/Sodium Chloride (Vancocin) 1 gm in 200 mls @ 133 mls/hr IVPB MWF [facility] Stop: 12/24/16 10:31 Insulin Aspart (Novolog) 4 unit SC [facility] Last Admin: 12/15/16 07:45 Dose: Not Given Insulin Glargine (Lantus) 10 unit SC [facility] Last Admin: 12/14/16 21:57 Dose: 10 u Insulin Human Regular (Novolin R) 0 unit SC [facility] PRN Reason: Protocol Last Admin: 12/15/16 07:44 Dose: Not Given Mirtazapine (Remeron) 7.5 mg PO [facility] Last Admin: 12/14/16 21:52 Dose: 7.5 mg Morphine Sulfate (Morphine) 2 mg IVP Q6 PRN PRN Reason: Pain, moderate (4-7) Last Admin: 12/15/16 10:40 Dose: 2 mg Mupirocin (Bactroban 2% Nasal) 0.5 gm LEESA BID [facility] Last Admin: 12/14/16 17:41 Dose: Not Given Ondansetron HCl (Zofran Inj) 4 mg IVP ONCE PRN PRN Reason: Nausea/Vomiting Rosuvastatin Calcium (Crestor) 5 mg PO [facility] Last Admin: 12/14/16 21:49 Dose: 5 mg - Labs Labs: 12/13/16 06:26 12/13/16 06:24 PT 12.9 SECONDS (9.7-12.2) H 12/13/16 06:26 INR 1.2 12/13/16 06:26 APTT 30 SECONDS (21-34) 12/13/16 06:26 - Constitutional Appears: No Acute Distress, Chronically Ill - Head Exam Head Exam: ATRAUMATIC, NORMAL INSPECTION - Eye Exam Eye Exam: EOMI, Normal appearance - Neck Exam Neck Exam: Normal Inspection. absent: Tenderness - Respiratory Exam Respiratory Exam: Clear to Ausculation Bilateral, NORMAL BREATHING PATTERN - Cardiovascular Exam Cardiovascular Exam: REGULAR RHYTHM, +S1 - GI/Abdominal Exam GI & Abdominal Exam: Soft. absent: Tenderness - Extremities Exam Extremities Exam: Normal Inspection. absent: Tenderness - Neurological Exam Neurological Exam: Awake, Motor Sensory Deficit - Skin Skin Exam: Dry, Warm Assessment and Plan (1) Chronic disease anemia Status: Acute (2) Diabetic ulcer of lower leg Status: Acute (3) ESRD (end stage renal disease) Status: Acute (4) History of left above knee amputation Status: Acute (5) Infected open wound Status: Acute (6) Osteomyelitis Status: Acute (7) Diabetes mellitus Status: Chronic - Assessment and Plan (Free Text) Plan: Add ESAs Check iron stores HD MWF IV ABs Wound care
[2016-12-15] MEDS: Mupirocin 2% Ointment (NASAL) NAS SCH ×2 (10:58→17:41)
[2016-12-15] MEDS ORDERED: Epoetin Alfa 10,000 unit/ml Dialysis IV SCH (12:00)
--- NOTE | 2016-12-15 12:04 | CP.PCM.PN ---
Subjective - Date & Time of Evaluation Date of Evaluation: 12/15/16 Time of Evaluation: 12:02 - Subjective Subjective: 61 y/o female patient S&E at bedside this AM in ICU 4 days s/p right lower extremity wound debridement. Pt seen resting comfortably in the bed and was having dialysis. Appears AAOx3 and in NAD. Nursing denies any acute events overnight. as per Nurse she will be discharged to [facility] after Dialysis. Deneis f/ n/v/c/sob/cp at this time. Objective - Vital Signs/Intake and Output Vital Signs (last 24 hours): Temp Pulse Resp BP Pulse Ox 98.1 F 85 12 143/62 95 12/15/16 09:25 12/15/16 09:20 12/15/16 09:20 12/15/16 11:10 12/15/16 09:25 Intake and Output: 12/15/16 12/15/16 06:59 18:59 Intake Total 250 80 Output Total 100 0 Balance 150 80 - Medications Medications: Current Medications Acetaminophen (Tylenol 325mg Tab) 650 mg PO Q6 PRN PRN Reason: Pain, moderate (4-7) Last Admin: 12/13/16 06:51 Dose: 650 mg Albuterol/Ipratropium (Duoneb 3 Mg/0.5 Mg (3 Ml) Ud) 3 ml IH RQ6 PRN PRN Reason: Shortness of Breath Last Admin: 12/11/16 18:23 Dose: 3 ml Aspirin (Ecotrin) 81 mg PO DAILY [facility] Last Admin: 12/15/16 10:40 Dose: 81 mg Calcium Acetate (Phoslo) 667 mg PO TIDCC [facility] Last Admin: 12/14/16 17:46 Dose: 667 mg Clopidogrel Bisulfate (Plavix) 75 mg PO DAILY [facility] Last Admin: 12/15/16 10:40 Dose: 75 mg Docusate Sodium (Colace) 100 mg PO HS [facility] Last Admin: 12/14/16 21:48 Dose: Not Given Epoetin Steven (Procrit) 10,000 unit IV MWF [facility] Last Admin: 12/15/16 11:56 Dose: 10,000 unit Escitalopram Oxalate (Lexapro) 10 mg PO DAILY [facility] Last Admin: 12/15/16 10:40 Dose: 10 mg Piperacillin Sod/Tazobactam Sod (Zosyn 2.25 Gm Iv Premix) 2.25 gm in 50 mls @ 100 mls/hr IVPB Q8H [facility] Last Admin: 12/15/16 08:47 Dose: 100 mls/hr Metronidazole (Flagyl) 500 mg in 100 mls @ 100 mls/hr IVPB Q12H [facility] Last Admin: 12/15/16 00:08 Dose: 100 mls/hr Vancomycin/Sodium Chloride (Vancocin) 1 gm in 200 mls @ 133 mls/hr IVPB MWF [facility] Stop: 12/24/16 10:31 Insulin Glargine (Lantus) 10 unit SC [facility] Last Admin: 12/14/16 21:57 Dose: 10 u Insulin Human Regular (Novolin R) 0 unit SC [facility] PRN Reason: Protocol Last Admin: 12/15/16 07:44 Dose: Not Given Mirtazapine (Remeron) 7.5 mg PO [facility] Last Admin: 12/14/16 21:52 Dose: 7.5 mg Morphine Sulfate (Morphine) 2 mg IVP Q6 PRN PRN Reason: Pain, moderate (4-7) Last Admin: 12/15/16 10:40 Dose: 2 mg Mupirocin (Bactroban 2% Nasal) 0.5 gm LEESA BID [facility] Last Admin: 12/15/16 10:58 Dose: 0.5 gm Ondansetron HCl (Zofran Inj) 4 mg IVP ONCE PRN PRN Reason: Nausea/Vomiting Rosuvastatin Calcium (Crestor) 5 mg PO [facility] Last Admin: 12/14/16 21:49 Dose: 5 mg - Labs Labs: 12/13/16 06:26 12/13/16 06:24 PT 12.9 SECONDS (9.7-12.2) H 12/13/16 06:26 INR 1.2 12/13/16 06:26 APTT 30 SECONDS (21-34) 12/13/16 06:26 - Constitutional Appears: Well, Non-toxic, No Acute Distress - Extremities Exam Additional comments: Dressing intact, dry. - Neurological Exam Neurological Exam: Alert, Awake - Psychiatric Exam Psychiatric exam: Normal Affect, Normal Mood Assessment and Plan - Assessment and Plan (Free Text) Assessment: 61 y/o female patient with 4 days s/p posterior aspect of right lower extremity wound debridement Plan: Patient seen and evaluated at bedside in ICU All the questions and concerns were addressed Plan discussed with Dr. Pritchard in detail Chart labs and vitals reviewed: afebrile Right leg dressing intact-will be changed at [facility] and the will apply wound vac at [facility]. c/w IV abx per ID pain meds per primary team (tylenol and morphine) Discussed plan with primary team, pt is for potential transfer to medical floor and possible transfer back to shelter Pt will require wound vac at shelter (100 mm Hg) to be changed every 3 days Stable per podiatry service. Will continue to follow while she is in house.
--- NOTE | 2016-12-15 12:48 | CP.PCM.DIS ---
Provider - Provider Date of Admission: 12/11/16 15:14 Attending physician: Abel Flores Jr, MD Primary care physician: Sandra Consults: Podiatry: Dr. Shi Nephro: Dr. Salinas ID: [id number] Time Spent in preparation of Discharge (in minutes): 45 Diagnosis - Discharge Diagnosis (1) Diabetic ulcer of lower leg Status: Acute Comment: see hospital course (2) Infected open wound Status: Chronic Comment: see hospital course Hospital Course - Lab Results Lab Results: Micro Results 12/11/16 23:30 Blood Blood Culture - Preliminary NO GROWTH AFTER 3 DAYS 12/11/16 Unknown Naris MRSA Culture (Admit) - Final MRSA DETECTED 12/11/16 Unknown Leg - Right Gram Stain - Final 12/11/16 Unknown Leg - Right Wound Culture - Final Enterobacter Cloacae Staphylococcus Aureus Most Recent Lab Values WBC 12.9 K/uL (4.8-10.8) H D 12/13/16 06:26 RBC 3.28 Mil/uL (3.80-5.20) L 12/13/16 06:26 Hgb 9.4 g/dL (11.0-16.0) L D 12/13/16 06:26 Hct 29.6 % (34.0-47.0) L 12/13/16 06:26 MCV 90.1 fL (81.0-99.0) 12/13/16 06:26 MCH 28.7 pg (27.0-31.0) 12/13/16 06:26 MCHC 31.8 g/dL (33.0-37.0) L 12/13/16 06:26 RDW 16.7 % (11.5-14.5) H 12/13/16 06:26 Plt Count 403 K/uL (130-400) H D 12/13/16 06:26 MPV 8.6 fL (7.2-11.7) 12/13/16 06:26 Neut % (Auto) 60.5 % (50.0-75.0) 12/13/16 06:26 Lymph % (Auto) 15.9 % (20.0-40.0) L 12/13/16 06:26 [place] % (Auto) 4.9 % (0.0-10.0) 12/13/16 06:26 Eos % (Auto) 18.2 % (0.0-4.0) H 12/13/16 06:26 Baso % (Auto) 0.5 % (0.0-2.0) 12/13/16 06:26 Neut # 7.8 K/uL (1.8-7.0) H 12/13/16 06:26 Lymph # 2.1 K/uL (1.0-4.3) 12/13/16 06:26 [place] # 0.6 K/uL (0.0-0.8) 12/13/16 06:26 Eos # 2.4 K/uL (0.0-0.7) H 12/13/16 06:26 Baso # 0.1 K/uL (0.0-0.2) 12/13/16 06:26 Neutrophils % (Manual) 77 % (50-75) H 12/12/16 06:14 Band Neutrophils % 10 % (0-2) H 12/12/16 06:14 Lymphocytes % (Manual) 6 % (20-40) L 12/12/16 06:14 Monocytes % (Manual) 2 % (0-10) 12/12/16 06:14 Eosinophils % (Manual) 4 % (0-4) 12/12/16 06:14 Metamyelocytes % 1 % (0-0) H 12/12/16 06:14 Platelet Estimate Increased (NORMAL) H 12/12/16 06:14 Anisocytosis (manual) Slight 12/12/16 06:14 PT 12.9 SECONDS (9.7-12.2) H 12/13/16 06:26 INR 1.2 12/13/16 06:26 APTT 30 SECONDS (21-34) 12/13/16 06:26 Puncture Site [place] 12/12/16 11:14 pCO2 32 mm/Hg (35-45) L 12/12/16 11:14 pO2 88 mm/Hg (80-100) 12/12/16 11:14 HCO3 23.1 mmol/L (21-28) 12/12/16 11:14 ABG pH 7.43 (7.35-7.45) 12/12/16 11:14 ABG Total CO2 22.2 mmol/L (22-28) 12/12/16 11:14 ABG O2 Saturation 99.0 % (95-98) H 12/12/16 11:14 ABG Base Excess -2.3 mmol/L (-2.0-3.0) L 12/12/16 11:14 Hus[place] Test Na 12/12/16 11:14 ABG Potassium 3.6 mmol/L (3.6-5.2) 12/12/16 11:14 A-a O2 Difference 100.0 mm/Hg 12/12/16 11:14 Respiratory Index 1.1 12/12/16 11:14 Sodium 136.0 mmol/l (132-148) 12/12/16 11:14 Chloride 108.0 mmol/L (98-107) H 12/12/16 11:14 Glucose 226 mg/dl (65-105) H 12/12/16 11:14 Lactate 2.5 mmol/L (0.7-2.1) H 12/12/16 11:14 FiO2 32.0 % 12/12/16 11:14 Sodium 136 mmol/L (132-148) 12/13/16 06:24 Potassium 3.7 mmol/L (3.6-5.2) 12/13/16 06:24 Chloride 98 mmol/L (98-107) 12/13/16 06:24 Carbon Dioxide 29 mmol/L (22-30) 12/13/16 06:24 Anion Gap 13 (10-20) 12/13/16 06:24 BUN 17 mg/dL (7-17) 12/13/16 06:24 Creatinine 4.1 MG/DL (0.7-1.2) H 12/13/16 06:24 Est GFR ( Amer) 13 12/13/16 06:24 Est GFR (Non-Af Amer) 11 12/13/16 06:24 POC Glucose (mg/dL) 121 mg/dL (65-110) H 12/15/16 11:03 Random Glucose 110 mg/dL (65-105) H 12/13/16 06:24 Lactic Acid 1.8 mmol/L (0.7-2.1) 12/12/16 14:43 Calcium 7.3 mg/dl (8.6-10.4) L 12/13/16 06:24 Phosphorus 3.6 mg/dL (2.5-4.5) 12/13/16 06:24 Magnesium 1.9 mg/dL (1.6-2.3) 12/13/16 06:24 Total Bilirubin 0.4 mg/dL (0.2-1.3) 12/13/16 06:24 AST 38 U/L (14-36) H 12/13/16 06:24 ALT 32 U/L (9-52) 12/13/16 06:24 Alkaline Phosphatase 87 U/L (38-126) 12/13/16 06:24 Total Creatine Kinase 25 U/L (30-135) L 12/11/16 18:40 CK-MB (Mass) 0.36 ng/mL (0.0-3.38) 12/11/16 18:40 Troponin I 0.0550 ng/mL (0.00-0.120) 12/12/16 06:14 Troponin I, Quant 0.0160 ng/mL (0.00-0.120) 12/11/16 18:40 Total Protein 6.2 g/dL (6.3-8.3) L 12/13/16 06:24 Albumin 2.6 g/dL (3.5-5.0) L 12/13/16 06:24 Globulin 3.5 gm/dL (2.2-3.9) 12/13/16 06:24 Albumin/Globulin Ratio 0.8 (1.0-2.1) L 12/13/16 06:24 Arterial Blood Potassium 3.6 mmol/L (3.6-5.2) 12/12/16 11:14 Random Vancomycin 22.53 ug/mL 12/15/16 06:24 - Hospital Course Hospital Course: On admission: Patient is a 61 year old female with PMHx of ESRD on HD, DM, HTN, HLD, Asthma, CVA, osteomyelitis to left lower extremity who presents to the hospital via EMS from [facility] for right lower extremity wound. Patient states the wound has been present for many months but she is unsure exactly how long. Patient states the wound is very painful to touch and has been purulent. Patient reports three days of chills but denies fever. Patient admits to nausea and vomiting once. Patient denies chest pain but states she does feel sometimes that she is having trouble breathing due to her asthma. Patient states she is compliant with her dialysis and is due for dialysis tomorrow. Hospital course: Patient admitted on 12/11/16 for purulent right lower extremity wound. Pt presented afebrile, but with elevated WBC. She was taken to OR by Dr. Shi , podiatry consult, for wound debridement. She was started on Zosyn IV. Dr. 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 After surgery pt was monitored in ICU for hypotension after the procedure, with concern for sepsis. Pt was placed on pressors. In ICU, NAT Chance started Flagyl and Vancomycin, in response to blood culture positive for Gram neg sarah and staph aureus. Pts pressure and WBC improved and was deemed stable for discharge on 12/15/16 Discharge Exam - Head Exam Head Exam: ATRAUMATIC, NORMAL INSPECTION - Eye Exam Eye Exam: EOMI Pupil Exam: PERRL - ENT Exam ENT Exam: Mucous Membranes Moist - Respiratory Exam Respiratory Exam: Clear to PA & Lateral, UNREMARKABLE. absent: Accessory Muscle Use, Wheezes, Respiratory Distress - Cardiovascular Exam Cardiovascular Exam: REGULAR RHYTHM, RRR, +S1, +S2 - GI/Abdominal Exam GI & Abdominal Exam: Normal Bowel Sounds, Soft. absent: Tenderness - Extremities Exam Additional comments: left leg is AKA and right has a dressing with a moderate amount of drainage. - Back Exam Back exam: NORMAL INSPECTION - Neurological Exam Neurological exam: Alert, Oriented x3 - Psychiatric Exam Psychiatric exam: Normal Affect, Normal Mood - Skin Skin Exam: Normal Color, Warm Discharge Plan - Discharge Medications Prescriptions: Piperacillin/Tazobact 3.375 gm [Zosyn 3.375 in NS 100ml] 3.375 gm IVPB DAILY 7 Days Vancomycin/0.9 % Sod Chloride [Vanco 1 Gram/250 ml-0.9% NaCl] 1 gm IV QWK #7 plast..bag - Follow Up Plan Condition: FAIR Disposition: NURSING FACILITY MEDICAID CERT Additional Instructions: Patient to be discharged back to [facility] when bed available. She will continue IV Zosyn daily for 7 days. Vancomycin every week for 7 doses. She will continue all her other home medication. She will need to a wound vac with black foam put at 100mm Hg that is changed every 3 days. She will need to see Dr. Wolfe and also Dr. Flores as well after discharge. Patient to return to ED if symptoms return. New medications: Zosyn 3.375gm IV Daily Vancomycin 1gm IVPB every thursday after dialysis for 7 weeks (7 doses) Necessary procedure: wound vac with black foam put at 100mm Hg that is changed every 3 days.
[2016-12-15 12:53] VITALS: PULSE 78; RESP 16; O2SAT 98
--- NOTE | 2016-12-15 14:32 | CARD ---
APPROVED REPORT EKG Measurement Heart [id number] <Conclusion> Normal sinus rhythm Possible Left atrial enlargement Possible Inferior infarct, age undetermined Prolonged QT Abnormal ECG
[2016-12-15 16:54] VITALS: BP 159/60; TEMP 98.9
--- NOTE | 2016-12-15 22:38 | CP.PCM.PN ---
Subjective - Date & Time of Evaluation Date of Evaluation: 12/15/16 Time of Evaluation: 16:25 - Subjective Subjective: # POD 4 S/P DEBRIMENT AND DRAINAGE ABSCESS RT LEG WOUND. s/p HD TODAY 12/15/16. 99.3 VSS BP 130/60. AWAKE C/O PAIN RT. LE. DRESSING CHANGED TODAY WITH RESIDENTS. RT LE WOUND 10CM X 9CM BASE CLEAN +VE FRESH BLEEDING, NO ODOR.MARGINS CLEAN. WOUND CULTURE +VE ENTEROBACTER CLOACAE / MSSA CASE DISCUSSED WITH RESIDENT.. Objective - Vital Signs/Intake and Output Vital Signs (last 24 hours): Temp Pulse Resp BP Pulse Ox 98.9 F 78 16 159/60 H 98 12/15/16 16:40 12/15/16 12:25 12/15/16 12:25 12/15/16 16:40 12/15/16 12:25 Intake and Output: 12/15/16 12/16/16 18:59 06:59 Intake Total 231 Output Total 0 Balance 231 - Labs Labs: 12/13/16 06:26 12/13/16 06:24 PT 12.9 SECONDS (9.7-12.2) H 12/13/16 06:26 INR 1.2 12/13/16 06:26 APTT 30 SECONDS (21-34) 12/13/16 06:26 - Constitutional Appears: No Acute Distress - Head Exam Head Exam: NORMAL INSPECTION - Eye Exam Eye Exam: EOMI, PERRL - ENT Exam ENT Exam: Normal Oropharynx - Respiratory Exam Respiratory Exam: Clear to Ausculation Bilateral - GI/Abdominal Exam GI & Abdominal Exam: Soft, Normal Bowel Sounds. absent: Organomegaly - Extremities Exam Extremities Exam: Calf Tenderness, Normal Capillary Refill (DRESSING RIGHT LOWER EXTREMITY CHANGE.), Pedal Edema Additional comments: LEFT AKA. - Neurological Exam Neurological Exam: Alert, Awake, CN II-XII Intact, Oriented x3, Reflexes Normal - Psychiatric Exam Psychiatric exam: Normal Mood - Skin Skin Exam: Normal Color, Warm Assessment and Plan (1) Septic shock Status: Acute (2) Diabetic ulcer of lower leg Assessment & Plan: PT. OFF PRESSORS CONTINUE iv ZOSYN 2.25 EVERY 8 HOURLY 12/11/16. X 3WKS HOLD iv VANCOMYCIN DOSE TODAY vANCO LEVELS RANDOM 22.5-HIGH. ON iv VANCOMYCIN 1 G POST-EACH HEMODIALYSIS MWF X 9 DOSES. STARTING ON thursday12/17/16 (3WKS ) MONITOR VANCO TROUGH LEVEL ON THE 3RD DOSE .AND KEEP LEVELS BETWEEN 10 AND 20. ON IV fLAGYL 500 MG EVERY 12 HOURLY. 12/12/16. X 10DAYS F/U REPEAT WOUND CULTURES. LWC PER SURGERY. REPORTED PT FOR [facility] AT THE [facility].. WILL F/U PT WHILE IN HOSPITAL. Status: Acute (3) ESRD (end stage renal disease) Status: Acute (4) Diabetes mellitus Status: Chronic (5) HTN (hypertension) Status: Chronic (6) CVA (cerebrovascular accident) Status: Acute (7) History of left above knee amputation Status: Acute
== END 2016-12-15 17:50 | DRG 264 ==
LOC: C.ER 12:12 → C.9E 15:14 → C.5T 17:11 → C.9I 21:47
PROVIDERS: ADMIT Internal Medicine; ATTEND Internal Medicine
PROC: 0HDKXZZ Extraction of Right Lower Leg Skin, External Approach (ICD-10-PCS; 2016-12-11)
PROC: 0HBKXZZ Excision of Right Lower Leg Skin, External Approach (ICD-10-PCS; principal; 2016-12-11 12:00)
PROC: 5A1D60Z (ICD-10-PCS; 2016-12-12)
DX: E11.52 Type 2 diabetes mellitus with diabetic peripheral angiopathy with gangrene (principal); A41.01 Sepsis due to Methicillin susceptible Staphylococcus aureus; R65.21 Severe sepsis with septic shock; N18.6 End stage renal disease; I12.0 Hypertensive chronic kidney disease with stage 5 chronic kidney disease or end stage renal disease; L97.919 Non-pressure chronic ulcer of unspecified part of right lower leg with unspecified severity; I69.354 Hemiplegia and hemiparesis following cerebral infarction affecting left non-dominant side; L03.90 Cellulitis, unspecified; E11.21 Type 2 diabetes mellitus with diabetic nephropathy; E11.622 Type 2 diabetes mellitus with other skin ulcer; E11.22 Type 2 diabetes mellitus with diabetic chronic kidney disease; F32.9 Major depressive disorder, single episode, unspecified; J44.9 Chronic obstructive pulmonary disease, unspecified; E78.5 Hyperlipidemia, unspecified; J45.909 Unspecified asthma, uncomplicated; I95.81 Postprocedural hypotension; D63.1 Anemia in chronic kidney disease; E78.00 Pure hypercholesterolemia, unspecified; Z79.4 Long term (current) use of insulin; Z79.82 Long term (current) use of aspirin; Z89.612 Acquired absence of left leg above knee; Z79.899 Other long term (current) drug therapy; Z99.2 Dependence on renal dialysis

== ENCOUNTER 2017-01-05 23:16 | Emergency (ER) | payer MEDICARE, OTHER ==
[2017-01-05 23:16] VITALS: BMI 27.3
[2017-01-05 23:30] VITALS: PULSE 40; RESP 18
--- NOTE | 2017-01-05 23:50 | C.PDOC ---
History Of Present Illness pt found unresponsive at home, not clear as to how muchg time(as per ems possibly 30 min). Pt found to be bradycardic. then pt 's famil made pt a full code. Pt was initially paced for bradycardia of 20 bpm, then became a cardiac arrest. pt was intubated, received 4 epis, a bicarb, 1 calcium. Pt also has not had hemodialysis for over 2 weeks. Pt was asystolic on arrival to the ed Chief Complaint (Nursing): Cardiac Arrest History Per: EMS Reason For Code Blue: Full Arrest Circumstances: Brought To ED By EMS Arrest Witnessed By: No One CPR Initiated Prior To MD Arrival?: Yes Down-Time Before ACLS: Mins (>30) Treatment Initiated Prior To MD Arrival: Yes: CPR, Intubation, IVF, ACLS Medication Initiation, IV Access Medications Given Prior To MD Arrival: Yes: Epinephrine, Sodium Bicarb, Other ( calcium) - Initial Findings Mentation: Unresponsive Respirations: None (Assisted) Pulse: Weak (with compression) Rhythm: Asystole Past Medical History Reviewed: Historical Data, Nursing Documentation, Vital Signs Vital Signs: Last Vital Signs Temp Pulse 40 L 01/05/17 23:23 Resp 18 01/05/17 23:23 BP Pulse Ox - Medical History PMH: Anemia, Asthma, Depression, Diabetes, Gall Bladder Disease, HTN, Hypercholesterolemia, Chronic Kidney Disease Surgical History: Cholecystectomy - [facility] Procedures BYPASS LEFT BRACHIAL ARTERY TO UPPER ARM VEIN, OPEN APPROACH (10/14/16) EXCISION OF RIGHT LOWER LEG SKIN, EXTERNAL APPROACH (12/11/16) EXTRACTION OF LEFT UPPER LEG SKIN, EXTERNAL APPROACH (12/04/15) EXTRACTION OF RIGHT LOWER LEG SKIN, EXTERNAL APPROACH (12/11/16) EXTRACTION OF RIGHT UPPER LEG SKIN, EXTERNAL APPROACH (12/04/15) FLUOROSCOPY OF SUP VENA CAVA USING L OSM CONTRAST, GUIDANCE (10/14/16) FLUOROSCOPY OF SUP VENA CAVA USING OTH CONTRAST, GUIDANCE (12/04/15) INSERTION OF INFUSION DEV INTO SUP VENA CAVA, PERC APPROACH (10/14/16) INSERTION OF VAD INTO CHEST SUBCU/FASCIA, PERC APPROACH (10/14/16) PERFORMANCE OF URINARY FILTRATION, MULTIPLE (12/11/16) REPLACE L UP LEG SKIN W NONAUT SUB, PART THICK, ICE CREAM MIXER (12/04/15) REPLACE R UP LEG SKIN W NONAUT SUB, PART THICK, ICE CREAM MIXER (12/04/15) TRANSFER LEFT UPPER LEG SKIN, EXTERNAL APPROACH (12/04/15) TRANSFER RIGHT UPPER LEG SKIN, EXTERNAL APPROACH (12/04/15) Family History: States: No Known Family Hx - Social History Hx Alcohol Use: No Hx Substance Use: No - Immunization History Hx Tetanus Toxoid Vaccination: No Hx Influenza Vaccination: Yes Hx Pneumococcal Vaccination: No Review Of Systems Review Of Systems: ROS cannot be obtained secondary to pt's inabilty to answer questions. Physical Exam - Physical Exam Appears: In Acute Distress Skin: Pale, Ecchymosis (abdominal) Head: Normacephalic Eye(s): bilateral: Other (fixed, dilated) Throat: Other (ett in place) Neck: Step Off Deformity Chest: Symmetrical, Other (hD catheter r chest) Cardiovascular: Other (asystole) Respiratory: Rhonchi (via ett tube) Gastrointestinal/Abdominal: Soft, Distention, Other (numerous ecchimosis, small) Back: Normal Inspection Extremity: Other (left aka) Extremity: Left: Other (aka) Neurological/Psych: Other (unresponsive) Gait: Unable To Assess ED Course And Treatment Progress Note: see code sheet. Patient pronounced at 11:43 PM. Spoke with family about her . spoke with dr pagan. is aware of his patient's Disposition Counseled Patient/Family Regarding: Studies Performed, Diagnosis - Disposition Disposition: WITH WITHOUT AUTOPSY Disposition Time: 23:50 Condition: - Clinical Impression Clinical Impression: Cardiac arrest Critical Care Time - Critical Care Note Total Time (in mins): 30 Documented critical care: time excludes all time spent performing seperately billable procedures.
== END 2017-01-06 02:00 ==
LOC: C.ER 23:16
DX: I46.9 Cardiac arrest, cause unspecified (principal)